=== PATIENT | male | born 1980 | race American Indian/Alaskan Native ===

== ENCOUNTER 2020-03-02 07:09 | Outpatient (REF) | payer OTHER, SELFPAY ==
[2020-03-02 08:29] LABS: Alanine Aminotransferase 35 U/L (0-40); Albumin Level 4.1 g/dL (3.5-5.0); Alkaline Phosphatase 86 U/L (39-117); Anion Gap 12 (12-20); Aspartate Amino Transferase 43 U/L (5-37); Bilirubin Total 0.4 mg/dL (0.0-1.0); Blood Urea Nitrogen 10 mg/dL (9-16); Calcium 8.4 mg/dL (8.4-10.2); Carbon Dioxide 32 mmol/L (22-29); Chloride 100 mmol/L (96-108); Cholesterol 222 mg/dL; Estimated Glomerular Filt Rate > 60; Glucose Fasting 108 mg/dL (60-99); HDL Cholesterol 44 mg/dL; LDL Cholesterol Calculated 147 mg/dl; Potassium 3.9 mmol/l (3.3-5.1); Sodium 140 mmol/L (135-145); Total Protein 7.4 g/dL (6.5-8.0); Triglycerides 157 mg/dL
== END 2020-03-02 07:10 | disposition home or self-care (01) ==
LOC: HO.LAB 07:09
PROVIDERS: Visit Provider Internal Medicine
DX: I10 Essential (primary) hypertension (principal)
CPT/HCPCS: 80053; 80061

== ENCOUNTER 2021-03-12 07:36 | Emergency (ER) | payer OTHER, SELFPAY ==
[2021-03-12 09:16] VITALS: BP 162/107; PULSE 92; RESP 16; TEMP 36.7; O2SAT 96; BMI 50.0
--- NOTE | 2021-03-12 09:30 | ED_ITS ---
HPI - Eye Problem General Chief complaint: Upper Respiratory Symptoms Stated complaint: fever, eye pain Time Seen by Provider: 03/12/21 09:02 Source: patient Mode of arrival: ambulatory Limitations: no limitations History of Present Illness HPI Narrative: 40-year-old male with history of morbid obesity, HTN, HLD who presents to the ER with red, burning and crusting eyes that started yesterday. He reports body aches and fever 2 days ago that resolved on its own. He also reports some increased nasal congestion and generally feeling unwell. His main complaint today is his burning eyes. When he woke up this morning they were crusted shut. He reports both eyes are red and have increased watering. He had some blurry vision yesterday but that has self resolved. He wears glasses and not contacts with no vision changes today. He denies any foreign body sensation. He denies any seasonal allergy history. He is fully vaccinated against COVID-19. chief complaint: eye pain and eye redness Onset (ago): day(s) (1) Onset description: gradual Duration: constant Location: both eyes Eye Symptoms: burning, redness and discharge Place: home Mechanism: none Severity: moderate If Pain, Quality: burning Context: recent URI Associated symptoms: rhinorrhea and fever Treatments Prior to Arrival: none Related Data Patient tetanus UTD: Yes Home Medications Medication Instructions Recorded Confirmed amlodipine 10 mg tablet 10 mg PO DAILY 03/19/20 06/06/20 Previous Rx's Medication Instructions Recorded lisinopril 20 mg tablet 20 mg PO DAILY 90 Days #90 tab 03/19/20 atorvastatin 20 mg tablet 20 mg PO DAILY #30 tab 07/31/20 polymyxin B sulfate 10,000 1 drp OPHTHALMIC (EYE) Q3H 7 Days 03/12/21 unit-trimethoprim 1 mg/mL eye #10 ml drops (Polytrim) Allergies Allergy/AdvReac Type Severity Reaction Status Date / Time lisinopril AdvReac Intermediate migraines Verified 06/06/20 11:16 Review of Systems Review of Systems: Constitutional: + Fever, No Chills ENT/Mouth: No sore throat, No Rhinorrhea, No Swallowing Difficulty, +Nasal congestion Eyes: + Eye Pain, No Swelling, + Redness, +Discharge Cardiovascular: No Chest Pain, No SOB, No Orthopnea, No Edema Respiratory: No Cough, No Sputum, No Wheezing, No dyspnea Gastrointestinal: No Nausea, No Vomiting, No Diarrhea, No abdominal Pain Musculoskeletal: No joint pain, + Myalgias Skin: No Skin Lesions, No rash Neuro: No Weakness, No Numbness, No Dizziness, + Headache Heme/Lymph: No Bruising, No Lymphadenopathy PMFSH Past Medical History Medical History Essential hypertension Obesity Pure hypercholesterolemia Surgical History History of cholecystectomy History of ear surgery Family History Family History (Updated 03/14/20 @ 07:38 by Roula Trivedi [facility]) Father Hypertension Diabetes Mother Diabetes Hypertension Social History Social History Advance Directives: No Physical Exam Vital Signs: Vital Signs: Last Vital Signs Temp 98.0 F 03/12/21 09:16 Pulse 92 03/12/21 09:16 Resp 16 03/12/21 09:16 BP 162/107 H 03/12/21 09:16 Pulse Ox 96 03/12/21 09:16 Body Mass Index 50.0 Appearance: Alert. Oriented X3. No acute distress. Eyes: Pupils equal, round and reactive to light. Bilateral moderate scleral and conjuctival injection, no discharge. No icterus. EOMI. ENT: Pharynx normal. TMs normal bilaterally. Neck: Normal inspection. Neck supple. No LAD. CVS: Normal heart rate and rhythm. Pulses normal. Respiratory: No respiratory distress. Breath sounds normal. Abdomen: Soft and nontender. +BS x4 Skin: Skin warm and dry. Normal skin color. Normal skin turgor. No rashes. Extremities: No lower extremity edema. Neuro: Oriented X 3. Grossly normal, nonfocal. Course Course Course Narrative: 40 y/o male presenting to the ER with bilateral red and burning eyes in the setting of fever, body aches and nasal congestion. Most likely viral however given discharge and crusting will treat for possible bacterial with topical antibiotics. Will also get COVID swab. Reevaluation(s) Reevaluation #1: COVID-19 is found to be positive. He is oxygenating well with clear lungs. No respiratory distress. Results and management were discussed with the patient. At this time is stable for discharge home with supportive care and plan to follow-up with his outpatient doctor as needed. MDM - Eye Problem Lab Data Labs: Lab Results 03/12/21 Range/Units 09:38 COVID-19 (VJ) Positive A (Negative) COVID-19 Clin Com See Note Critical Care Time Critical Care Time Critical Care Time: No Discharge Plan Discharge Clinical Impression: COVID-19 Conjunctivitis Qualifiers: Conjunctivitis type: acute Acute conjunctivitis type: bacterial Laterality: bilateral Qualified Code(s): H10.33 - Unspecified acute conjunctivitis, bilateral Patient Disposition: Home, Self-Care Instructions: Covid-19 Viral Syndrome and Novel Coronavirus (ED) Hey/Ath, Conjunctivitis (ED) Additional Instructions: You were found to be COVID-19 POSITIVE today. Your lung are clear and oxygen levels were normal. Rest. Drink plenty of fluids. Do not go out in public for the next 10 days. Take over the counter cold/flu medications as needed for your symptoms. Take Tylenol and/or Motrin as needed for fevers and body aches. Follow up with your doctor this week. If you shortness of breath worsens , if you develop difficulty breathing or any other concerning symptom come back to the ER for further evaluation. Use the prescribed antibiotic drops as prescribed for 1 week. Do not let the bottle dropper touch the surface of your eye. Prescriptions: New polymyxin B sulf-trimethoprim [Polytrim] 10,000 unit- 1 mg/mL drops 1 drp ophthalmic (eye) Q3H 7 Days Qty: 10 RF: 0 No Action atorvastatin 20 mg tablet 20 mg PO DAILY Qty: 30 RF: 6 amlodipine 10 mg tablet 10 mg PO DAILY RF: 0 lisinopril 20 mg tablet 20 mg PO DAILY 90 Days Qty: 90 RF: 3 Stand Alone Forms: Work/School Release Print Language: Slovak
[2021-03-12 09:52] LABS: COVID-19 Test Positive (Negative); IDNOW Serial# 9DD0AD1C
== END 2021-03-12 10:21 | disposition home or self-care (01) ==
PROVIDERS: Physician Assistant; Emergency Provider Emergency Medicine Emergency Medical Services; PCP Internal Medicine
DX: U07.1 COVID-19 (principal); H10.33 Unspecified acute conjunctivitis, bilateral; R50.9 Fever, unspecified; Z79.899 Other long term (current) drug therapy
CPT/HCPCS: 36415; 87635; 99283

== ENCOUNTER 2021-05-02 13:59 | Outpatient (REF) | payer OTHER, SELFPAY ==
--- NOTE | ~2021-05-02 | XR_ITS ---
EXAMINATION: XR ABDOMEN KUB CLINICAL INDICATION: Gross hematuria COMPARISON: Ultrasound renal from 05/02/2021 TECHNIQUE: AP view of the abdomen. FINDINGS: Overlying bowel gas slightly limits evaluation. No radiopaque calcifications overlying the bilateral renal shadows or ureteral paths. Nonobstructive bowel gas pattern with mild fecal loading of the colon. Cholecystectomy clips in the right upper quadrant of the abdomen. Visualized portion of the lower chest are unremarkable. Osseous structures are intact. Soft tissues are unremarkable. XR/XR KUB IMPRESSION: 1. Overlying bowel gas slightly limits evaluation. 2. No radiopaque calcifications overlying the bilateral renal shadows or ureteral paths. 3. Nonobstructive bowel gas pattern with mild fecal loading of the colon.
--- NOTE | ~2021-05-02 | US_ITS ---
EXAMINATION: US RETROPERITONEAL LIMITED (RENAL ONLY) CLINICAL INFORMATION: Gross hematuria. COMPARISON: KUB 05/02/2021. Ultrasound abdomen limited 10/01/2017. Renal ultrasound 06/12/2011. TECHNIQUE: Real-time imaging of the kidneys. FINDINGS: RIGHT KIDNEY: 12.0 x 5.3 x 6.0 cm (SAG x AP x TRV). The kidney is normal in size, contour, and echogenicity. Renal cortical thickness is normal. No calculi or focal parenchymal lesions. No hydronephrosis. LEFT KIDNEY: 11.7 x 6.1 x 5.9 cm (SAG x AP x TRV). The kidney is normal in size, contour, and echogenicity. Renal cortical thickness is normal. No calculi or focal parenchymal lesions. No hydronephrosis. US/US renal BI IMPRESSION: No ultrasound evidence of kidney stone or renal mass, no ultrasound explanation for patient's hematuria..
== END 2021-05-02 14:00 | disposition home or self-care (01) ==
LOC: HO.US 13:59
PROVIDERS: Visit Provider Internal Medicine
DX: R31.0 Gross hematuria (principal)
CPT/HCPCS: 74018; 76775

== ENCOUNTER 2021-05-20 07:44 | Outpatient (REF) | payer OTHER, SELFPAY ==
[2021-05-20 08:11] LABS: MANUAL DIFF FLAG NO
[2021-05-20 08:31] LABS: Appearance Urine CLEAR; Color Urine YELLOW; Glucose Urine UA NEG (NEG); Leukocyte Esterase Urine NEG (NEG); Nitrite Urine NEG (NEG); Specific Gravity - Urine >= 1.030 (1.005-1.025); UACC Culture Trigger NO; Urine Blood NEG (NEG); Urine Ketones NEG (NEG); Urine Protein 3+ MG/DL (NEG-TRACE)
[2021-05-20 08:33] LABS: Basophils Percent Auto 0.5 % (0-2); Eosinophils Absolute Auto 0.1 X10*3/uL (0.0-0.4); Eosinophils Percent Auto 0.8 % (0-4); Hematocrit 53.6 % (42.0-52.0); Hemoglobin 16.5 g/dl (14.0-18.0); Imm Gran Abs Auto 0.02 X10*3/uL (0.00-0.03); Imm Gran Pct Auto 0.3 % (0.0-0.4); Lymphocytes Absolute Auto 1.4 X10*3/uL (1.2-4.9); Lymphocytes Percent Auto 23.9 % (20-40); Mean Corpuscular HGB Conc 30.8 g/dl (31.0-36.0); Mean Corpuscular Hemoglobin 25.3 pg (27.0-33.0); Mean Corpuscular Volume 82.3 fL (80.0-98.0); Mean Platelet Volume 10.4 fL (9.4-12.4); Monocytes Absolute Auto 0.6 X10*3/uL (0.1-1.2); Monocytes Percent Auto 9.6 % (2-11); Neutrophils Absolute Auto 3.9 x10*3/uL (2.0-8.3); Neutrophils Percent Auto 64.9 % (45-73); Platelet Count 231 X10*3/uL (160-400); Red Blood Count 6.51 X10*6/uL (4.60-5.80); Red Cell Distribution Width 16.9 % (11.0-16.0)
[2021-05-20 08:53] LABS: Bacteria Urine TRACE /LPF; Mucus Urine TRACE /LPF; Squamous Epithelial Cell Urine 1+ /LPF
[2021-05-20 09:00] LABS: Alanine Aminotransferase 20 U/L (0-40); Albumin Level 3.8 g/dL (3.5-5.0); Alkaline Phosphatase 76 U/L (39-117); Anion Gap 10 (12-20); Aspartate Amino Transferase 31 U/L (5-37); Bilirubin Total 0.5 mg/dL (0.0-1.0); Blood Urea Nitrogen 15 mg/dL (9-16); Calcium 9.4 mg/dL (8.4-10.2); Carbon Dioxide 31 mmol/L (22-29); Chloride 102 mmol/L (96-108); Cholesterol 285 mg/dL; Estimated Glomerular Filt Rate > 60; Glucose Fasting 118 mg/dL (60-99); HDL Cholesterol 42 mg/dL; LDL Cholesterol Calculated 206 mg/dl; Potassium 4.2 mmol/L (3.3-5.1); Sodium 139 mmol/L (135-145); Total Protein 7.3 g/dL (6.5-8.0); Triglycerides 186 mg/dL
[2021-05-20 09:23] LABS: Thyroid Stimulating Hormone 2.17 uIU/mL (0.32-4.0)
[2021-05-24 15:16] LABS: Vitamin D 25-OH, D2 <4 ng/mL; Vitamin D 25-OH, D3 10 ng/mL; Vitamin D 25-OH, Total 10 ng/mL (30-100)
== END 2021-05-20 07:45 | disposition home or self-care (01) ==
LOC: HO.LAB 07:44
PROVIDERS: PCP Internal Medicine; Visit Provider Internal Medicine
DX: E66.01 Morbid (severe) obesity due to excess calories (principal); Z68.43 Body mass index [BMI] 50.0-59.9, adult; E55.9 Vitamin D deficiency, unspecified; E78.5 Hyperlipidemia, unspecified; I10 Essential (primary) hypertension
CPT/HCPCS: 36415; 80053; 80061; 81001; 82306; 84443; 85025

== ENCOUNTER 2021-10-23 11:41 | Emergency (ER) | payer OTHER, SELFPAY ==
--- NOTE | ~2021-10-23 | XR_ITS ---
EXAMINATION: XR CHEST CLINICAL INFORMATION: Bilateral leg swelling and right calf tenderness. COMPARISON: 03/09/2019 chest radiograph. TECHNIQUE: 2 views of the chest were obtained. FINDINGS: No significant abnormality is noted involving the heart, lungs, mediastinum, bony thorax or soft tissues. XR/XR chest 2V IMPRESSION: No acute cardiopulmonary process.
--- NOTE | ~2021-10-23 | US_ITS ---
EXAMINATION: US VENOUS ULTRASOUND WITH DOPPLER LOWER EXTREMITY, BILATERAL CLINICAL INFORMATION: Bilateral leg swelling with right calf tenderness COMPARISON: Right lower extremity DVT study 02/23/2013 TECHNIQUE: Ultrasound of the deep veins is performed from the hip to the calf with compression sonography and color and pulse Doppler assessment. Spectral analysis with color-flow imaging is performed. FINDINGS: RIGHT: There is normal venous compression and respiratory variation and augmented flow. The visualized common femoral vein, superficial femoral vein, profunda femoral vein, popliteal vein, and the trifurcation region shows no evidence of deep venous thrombosis. There is no significant popliteal fossa cyst. An enlarged right groin lymph node is seen measuring 4.1 x 1.7 x 3.3 cm with a large fatty zenaida. LEFT: There is normal venous compression and respiratory variation and augmented flow. The visualized common femoral vein, superficial femoral vein, profunda femoral vein, popliteal vein, and the trifurcation region shows no evidence of deep venous thrombosis. There is no significant popliteal fossa cyst. A morphologically normal-appearing 4.0 x 1.7 x 3.1 cm groin lymph node is present. If the patient's symptoms persist, followup ultrasound in 5 days 7 days might be of value to exclude proximal propagation from a non-visualized calf vein. US/US venous duplex LE BI IMPRESSION: No DVT demonstrated in either lower extremity. Bilateral prominent inguinal lymph nodes are seen. Similar findings were noted in 2012.
[2021-10-23 12:16] VITALS: BP 146/100; PULSE 103; RESP 20; TEMP 35.9; O2SAT 95; BMI 51.6
[2021-10-23 14:48] LABS: MANUAL DIFF FLAG NO
[2021-10-23 14:51] LABS: Basophils Percent Auto 0.4 % (0-2); Eosinophils Absolute Auto 0.1 X10*3/uL (0.0-0.4); Eosinophils Percent Auto 1.7 % (0-4); Hematocrit 50.3 % (42.0-52.0); Hemoglobin 15.8 g/dl (14.0-18.0); Imm Gran Abs Auto 0.03 X10*3/uL (0.00-0.03); Imm Gran Pct Auto 0.4 % (0.0-0.4); Lymphocytes Absolute Auto 1.6 X10*3/uL (1.2-4.9); Lymphocytes Percent Auto 20.8 % (20-40); Mean Corpuscular HGB Conc 31.4 g/dl (31.0-36.0); Mean Corpuscular Hemoglobin 25.8 pg (27.0-33.0); Mean Corpuscular Volume 82.1 fL (80.0-98.0); Mean Platelet Volume 10.2 fL (9.4-12.4); Monocytes Absolute Auto 0.7 X10*3/uL (0.1-1.2); Monocytes Percent Auto 8.4 % (2-11); Neutrophils Absolute Auto 5.3 x10*3/uL (2.0-8.3); Neutrophils Percent Auto 68.3 % (45-73); Platelet Count 213 X10*3/uL (160-400); Red Blood Count 6.13 X10*6/uL (4.60-5.80); Red Cell Distribution Width 14.6 % (11.0-16.0); White Blood Count 7.8 X10*3/uL (4.8-10.8)
[2021-10-23 15:17] LABS: Lactic Acid 1.4 mmol/L (0.5-2.0)
[2021-10-23 15:18] LABS: Alanine Aminotransferase 50 U/L (0-40); Albumin Level 4.2 g/dL (3.5-5.0); Alkaline Phosphatase 93 U/L (39-117); Anion Gap 14 (12-20); Aspartate Amino Transferase 58 U/L (5-37); Bilirubin Total 0.5 mg/dL (0.0-1.0); Blood Urea Nitrogen 13 mg/dL (9-16); Calcium 9.3 mg/dL (8.4-10.2); Carbon Dioxide 30 mmol/L (22-29); Chloride 99 mmol/L (96-108); Creatinine Clr Calc Pharmacy 157.4; Estimated Glomerular Filt Rate > 60; Glucose Random 146 mg/dL (60-115); Potassium 4.1 mmol/L (3.3-5.1); Sodium 139 mmol/L (135-145); Total Protein 7.8 g/dL (6.5-8.0)
--- NOTE | 2021-10-23 15:53 | ED.SKABFB ---
HPI - Skin/Abscess/Foreign Bdy General Chief complaint: Extremity Problem Stated complaint: cellulitis on both legs Time Seen by Provider: 10/23/21 15:51 Related Data Previous Rx's Medication Instructions Recorded hydralazine 25 mg tablet 25 mg PO TID 90 days #270 tabs 04/03/21 lisinopril 40 mg tablet 40 mg PO DAILY 90 days #90 tabs 04/03/21 amlodipine 10 mg tablet 10 mg PO DAILY 90 days #90 tabs 07/02/21 atorvastatin 40 mg tablet 40 mg PO BEDTIME 90 days #90 tabs 07/02/21 cholecalciferol (vitamin D3) 50 50 mcg PO DAILY 90 days #90 caps 08/13/21 mcg (2,000 unit) capsule Allergies Allergy/AdvReac Type Severity Reaction Status Date / Time No Known Allergies Allergy Verified 08/13/21 17:29 [facility] Past Medical History Medical History (Updated 08/13/21 @ 17:31 by Makayla Cochran MD) Essential hypertension Gross hematuria Hypovitaminosis D Left knee pain Obesity Physical exam Pure hypercholesterolemia Right knee pain Super-super obese Surgical History History of cholecystectomy History of ear surgery Family History Family History Father Hypertension Diabetes Mother Diabetes Hypertension Kidney failure Social History Social History Housing: Apartment Alcohol intake: never Patient Tobacco Use Status: Never used Tobacco e-Cigarette/Vaping Use: Never Used Second Hand Smoke Exposure: No Advance Directives: Yes Advance Directives Information Provided: Yes Advance Directives on File: No service: No Current occupational status: employed Current occupational exposures/hazards: No Cognitive needs: No Hearing needs: No Vision needs: Yes Physical Exam Vital Signs: Vital Signs: Last Vital Signs Temp 96.6 F L 10/23/21 12:16 Pulse 103 H 10/23/21 12:16 Resp 20 10/23/21 12:16 BP 146/100 H 10/23/21 12:16 Pulse Ox 95 10/23/21 12:16 O2 Del Method 10/23/21 12:16 BMI result Body Mass Index 51.6 Course Course Course Narrative: Patient is a 41-year-old male with a past medical history of hypertension, hematuria, obesity, hypercholesterolemia presenting to the emergency department for evaluation of _. CBC is unremarkable, no leukocytosis. Chemistries are overall unremarkable. Lactic acid 1.4. MDM - Skin/Abscess/Foreign Bdy Lab Data Result diagrams: 10/23/21 14:42 10/23/21 14:42 Labs: Lab Results 10/23/21 10/23/21 10/23/21 Range/Units 14:42 14:42 14:42 WBC 7.8 (4.8-10.8) X10*3/uL RBC 6.13 H (4.60-5.80) X10*6/uL Hgb 15.8 (14.0-18.0) g/dl Hct 50.3 (42.0-52.0) % MCV 82.1 (80.0-98.0) fL MCH 25.8 L (27.0-33.0) pg MCHC 31.4 (31.0-36.0) g/dl RDW 14.6 (11.0-16.0) % Plt Count 213 (160-400) X10*3/uL MPV 10.2 (9.4-12.4) fL Immature Gran % (Auto) 0.4 (0.0-0.4) % Neut % (Auto) 68.3 (45-73) % Lymph % (Auto) 20.8 (20-40) % Gonzales % (Auto) 8.4 (2-11) % Eos % (Auto) 1.7 (0-4) % Baso % (Auto) 0.4 (0-2) % Lymph # (Auto) 1.6 (1.2-4.9) X10*3/uL Gonzales # (Auto) 0.7 (0.1-1.2) X10*3/uL Eos # (Auto) 0.1 (0.0-0.4) X10*3/uL Baso # (Auto) 0.0 (0.0-0.2) X10*3/uL Abs Immat Gran (auto) 0.03 (0.00-0.03) X10*3/uL Absolute Neuts (auto) 5.3 (2.0-8.3) x10*3/uL Absolute Nucleated RBC 0.000 (0.0-0.012) X10*3/uL Nucleated RBC % (auto) 0.0 (0.0-0.2) /100WBC Sodium 139 (135-145) mmol/L Potassium 4.1 (3.3-5.1) mmol/L Chloride 99 (96-108) mmol/L Carbon Dioxide 30 H (22-29) mmol/L Anion Gap 14 (12-20) BUN 13 (9-16) mg/dL Creatinine 0.85 (0.5-1.4) mg/dL Estim Creat Clear Calc 157.4 Estimated GFR > 60 Random Glucose 146 H (60-115) mg/dL Lactic Acid 1.4 (0.5-2.0) mmol/L Calcium 9.3 (8.4-10.2) mg/dL Total Bilirubin 0.5 (0.0-1.0) mg/dL AST 58 H (5-37) U/L ALT 50 H (0-40) U/L Alkaline Phosphatase 93 D (39-117) U/L Total Protein 7.8 (6.5-8.0) g/dL Albumin 4.2 (3.5-5.0) g/dL Discharge Plan Discharge Prescriptions: No Action lisinopril 40 mg tablet 40 mg PO DAILY 90 Days Qty: 90 1RF hydralazine 25 mg tablet 25 mg PO TID 90 Days Qty: 270 1RF amlodipine 10 mg tablet 10 mg PO DAILY 90 Days Qty: 90 1RF atorvastatin 40 mg tablet 40 mg PO BEDTIME 90 Days Qty: 90 1RF cholecalciferol (vitamin D3) 50 mcg (2,000 unit) capsule 50 mcg PO DAILY 90 Days Qty: 90 3RF
--- NOTE | 2021-10-23 16:11 | ED.EXTPRO ---
HPI - Extremity Problem General Chief complaint: Extremity Problem Stated complaint: cellulitis on both legs Time Seen by Provider: 10/23/21 15:51 Source: patient Mode of arrival: ambulatory Limitations: language barrier (Maori speaking ) History of Present Illness HPI Narrative: 41-year-old male with a past medical history of morbid obesity, hypertension, hyperlipidemia who is presenting to the ED with complaints of bilateral lower extremity leg swelling with right-sided calf tenderness and redness to bilateral lower extremities. He reports he has never had this in the past. He denies any dizziness, headaches, chest pain or shortness of breath, dyspnea on exertion, orthopnea, palpitations, paresthesias, recent travel or sick contacts, any estrogen usage, history of surgery or cancer, history of hypercoagulation disorder DVT or PE, recent falls or trauma history of gout, recent illness or history of PVD disease. MD Complaint: extremity swelling Onset (ago): day(s) (3) Pain Consistency: constant Location: left, right and lower extremity Radiation: none Relieving factors: nothing Exacerbating factors: weight bearing, walking and palpation Associated symptoms: denies other symptoms Related Data Previous Rx's Medication Instructions Recorded hydralazine 25 mg tablet 25 mg PO TID 90 days #270 tabs 04/03/21 lisinopril 40 mg tablet 40 mg PO DAILY 90 days #90 tabs 04/03/21 amlodipine 10 mg tablet 10 mg PO DAILY 90 days #90 tabs 07/02/21 atorvastatin 40 mg tablet 40 mg PO BEDTIME 90 days #90 tabs 07/02/21 cholecalciferol (vitamin D3) 50 50 mcg PO DAILY 90 days #90 caps 08/13/21 mcg (2,000 unit) capsule cephalexin 500 mg capsule 500 mg PO Q6H 10 days #40 caps 10/23/21 doxycycline monohydrate 100 mg 100 mg PO BID 10 days #20 caps 10/23/21 capsule furosemide 20 mg tablet (Lasix) 20 mg PO QAM pedal edema 7 days #7 10/23/21 tabs Allergies Allergy/AdvReac Type Severity Reaction Status Date / Time No Known Allergies Allergy Verified 08/13/21 17:29 Review of Systems Review of Systems: Constitutional : No Weight loss, No Fever, No Chills, No Night Sweats, No Fatigue, No Malaise ENT/Mouth : No Hearing loss, No Ear Pain, No Nasal Congestion, No Sinus Pain, No Hoarseness, No sore throat, No Rhinorrhea, No Swallowing Difficulty Eyes: No Eye Pain, No Swelling, No Redness, No Foreign Body, No Discharge, No Vision Changes Cardiovascular : + b/l lower extremity swelling, No Chest Pain, No SOB, No Dyspnea on Exertion, No Orthopnea, No Palpitations Respiratory : No Cough, No Sputum, No Wheezing, No Smoke Exposure, No Dyspnea Gastrointestinal : No Nausea, No Vomiting, No Diarrhea, No Constipation, No abdominal Pain, No Hematochezia, No Melena Genitourinary : no irregular bleeding, No Dysuria, No Urinary Frequency, No Hematuria, No Urinary Incontinence, No Urgency, No Flank Pain, No Urinary Flow Changes, No Hesitancy Musculoskeletal : No joint pain, No Myalgias, No Joint Swelling Skin : No Skin Lesions, No rash Neuro : No Weakness, No Numbness, No Paresthesias, No Loss of Consciousness, No Dizziness, No Headache Psych : No Anxiety/Panic, No Depression, No SI/HI/AH/VH, No Social Issues, Heme/Lymph: No Bruising, No Bleeding,No Lymphadenopathy Endocrine : No Polyuria, No Polydipsia, No Temperature Intolerance Yes all other systems are reviewed and are negative PENDING SALE TO [facility] Past Medical History Attestation statement: The following information was validated with the patient. Source: old records reviewed and nursing notes reviewed Medical History Essential hypertension Gross hematuria Hypovitaminosis D Left knee pain Obesity Physical exam Pure hypercholesterolemia Right knee pain Super-super obese Surgical History History of cholecystectomy History of ear surgery Family History Family History Father Hypertension Diabetes Mother Diabetes Hypertension Kidney failure Social History Social History Housing: Apartment Alcohol intake: never Patient Tobacco Use Status: Never used Tobacco e-Cigarette/Vaping Use: Never Used Second Hand Smoke Exposure: No Advance Directives: Yes Advance Directives Information Provided: Yes Advance Directives on File: No service: No Current occupational status: employed Current occupational exposures/hazards: No Cognitive needs: No Hearing needs: No Vision needs: Yes Physical Exam Vital Signs: Vital Signs: Last Vital Signs Temp 96.7 F L 10/23/21 16:55 Pulse 84 10/23/21 16:55 Resp 16 10/23/21 16:55 BP 140/87 H 10/23/21 16:55 Pulse Ox 95 10/23/21 16:55 O2 Del Method 10/23/21 16:55 BMI result Body Mass Index 51.6 vital signs have been reviewed as normal and appeared to be correct. Blood pressure 146/100. Heart rate 103. Respiration rate normal. Temperature 96.6. Oxygen saturation normal. Appearance: Alert. Oriented X3. No acute distress. Head: Normal external exam. Normocephalic. Atraumatic. Eyes: PERRLA. EOMI. Conjunctiva and sclera normal. Eyelids normal. ENT: Pharynx normal. Uvula midline. Moist mucous membranes. Normal voice. No trismus noted. No drooling noted. No muffled voice noted. Neck: Normal inspection. Neck supple. FROM. No adenopathy. Thyroid Normal. No meningeal signs. CVS: Normal heart rate and rhythm. Heart sound normal. Pulses normal throughout. No murmurs/rales/gallops. Respiratory: No respiratory distress. Painless inspiration. Breath sounds normal. No wheezes/rales/rhonchi noted. Chest nontender. No accessory muscle usage noted or decreased air movement noted. Abdomen: Soft and nontender. Bowel sounds normal in all 4 quadrants. No distention noted. No organomegaly noted. No visible injury noted. Back: Full range of motion noted. Nontender. Skin: Skin warm and dry. Normal skin color. Normal skin turgor. No rashes/lesions/lacerations noted. Extremities: Patient with bilateral lower extremity swelling with +2 pitting edema and calf tenderness to the right side. No calf tenderness noted to the left side. Mild erythema noted to bilateral lower extremity. No streaking/induration/fluctuance noted. Extremities exhibit normal range of motion and nontender. Neuro: Oriented X 3. No motor deficit. No sensory deficit. Reflexes normal. Normal steady gait. No focal neuro deficits noted. CN's II-XII intact bilaterally? Vascular: + radial pulses/+ 2 distal pedal pulses/+2 dorsalis pedis b/l. Normal cap refill. No cyanosis noted to upper extremity nails and lower extremity toes nails. Course Course Course Narrative: 16:15pm - 41-year-old male with a past medical history of morbid obesity, HTN and HLD who is presenting to the ED with complaints of bilateral lower extremity leg swelling with right-sided calf tenderness and redness to bilateral lower extremities. Labs were obtained while the patient was in triage patient mild baseline anemia. Carbon dioxide 30 which is similar compared to prior. Random glucose 146. AST/ALT 58/50. Otherwise all other labs are within normal limits. Plan: Will add a chest x-ray, BNP although patient denies any shortness of breath although he does have bilateral lower extremity swelling with pitting edema, will also order venous duplex ultrasound of bilateral lower extremity for possible DVT and re-evaluate. Reevaluation(s) Reevaluation #1: - bilateral lower extremity negative for DVT. Chest x-ray within normal limits no evidence venous duplex ultrasound of bilateral lower extremity negative for DVT. Patient most likely pedal edema versus cellulitis. Will DC home with a short course of Lasix for a week along with antibiotics and instructions to return if any new or worsening symptoms follow up with primary care provider. Patient understands agrees with this plan. Time: 20:03 MDM - Extremity (Nontraumatic) Medical Records Attestation: I reviewed the patient's medical records. Lab Data Attestation: I reviewed the patient's lab results. Result diagrams: 10/23/21 14:42 10/23/21 14:42 Labs: Lab Results 10/23/21 10/23/21 10/23/21 Range/Units 14:42 14:42 14:42 WBC 7.8 (4.8-10.8) X10*3/uL RBC 6.13 H (4.60-5.80) X10*6/uL Hgb 15.8 (14.0-18.0) g/dl Hct 50.3 (42.0-52.0) % MCV 82.1 (80.0-98.0) fL MCH 25.8 L (27.0-33.0) pg MCHC 31.4 (31.0-36.0) g/dl RDW 14.6 (11.0-16.0) % Plt Count 213 (160-400) X10*3/uL MPV 10.2 (9.4-12.4) fL Immature Gran % (Auto) 0.4 (0.0-0.4) % Neut % (Auto) 68.3 (45-73) % Lymph % (Auto) 20.8 (20-40) % [place] % (Auto) 8.4 (2-11) % Eos % (Auto) 1.7 (0-4) % Baso % (Auto) 0.4 (0-2) % Lymph # (Auto) 1.6 (1.2-4.9) X10*3/uL [place] # (Auto) 0.7 (0.1-1.2) X10*3/uL Eos # (Auto) 0.1 (0.0-0.4) X10*3/uL Baso # (Auto) 0.0 (0.0-0.2) X10*3/uL Abs Immat Gran (auto) 0.03 (0.00-0.03) X10*3/uL Absolute Neuts (auto) 5.3 (2.0-8.3) x10*3/uL Absolute Nucleated RBC 0.000 (0.0-0.012) X10*3/uL Nucleated RBC % (auto) 0.0 (0.0-0.2) /100WBC Sodium 139 (135-145) mmol/L Potassium 4.1 (3.3-5.1) mmol/L Chloride 99 (96-108) mmol/L Carbon Dioxide 30 H (22-29) mmol/L Anion Gap 14 (12-20) BUN 13 (9-16) mg/dL Creatinine 0.85 (0.5-1.4) mg/dL Estim Creat Clear Calc 157.4 Estimated GFR > 60 Random Glucose 146 H (60-115) mg/dL Lactic Acid 1.4 (0.5-2.0) mmol/L Calcium 9.3 (8.4-10.2) mg/dL Total Bilirubin 0.5 (0.0-1.0) mg/dL AST 58 H (5-37) U/L ALT 50 H (0-40) U/L Alkaline Phosphatase 93 D (39-117) U/L B-Natriuretic Peptide (<100) pg/mL Total Protein 7.8 (6.5-8.0) g/dL Albumin 4.2 (3.5-5.0) g/dL 10/23/21 Range/Units 14:46 WBC (4.8-10.8) X10*3/uL RBC (4.60-5.80) X10*6/uL Hgb (14.0-18.0) g/dl Hct (42.0-52.0) % MCV (80.0-98.0) fL MCH (27.0-33.0) pg MCHC (31.0-36.0) g/dl RDW (11.0-16.0) % Plt Count (160-400) X10*3/uL MPV (9.4-12.4) fL Immature Gran % (Auto) (0.0-0.4) % Neut % (Auto) (45-73) % Lymph % (Auto) (20-40) % [place] % (Auto) (2-11) % Eos % (Auto) (0-4) % Baso % (Auto) (0-2) % Lymph # (Auto) (1.2-4.9) X10*3/uL [place] # (Auto) (0.1-1.2) X10*3/uL Eos # (Auto) (0.0-0.4) X10*3/uL Baso # (Auto) (0.0-0.2) X10*3/uL Abs Immat Gran (auto) (0.00-0.03) X10*3/uL Absolute Neuts (auto) (2.0-8.3) x10*3/uL Absolute Nucleated RBC (0.0-0.012) X10*3/uL Nucleated RBC % (auto) (0.0-0.2) /100WBC Sodium (135-145) mmol/L Potassium (3.3-5.1) mmol/L Chloride (96-108) mmol/L Carbon Dioxide (22-29) mmol/L Anion Gap (12-20) BUN (9-16) mg/dL Creatinine (0.5-1.4) mg/dL Estim Creat Clear Calc Estimated GFR Random Glucose (60-115) mg/dL Lactic Acid (0.5-2.0) mmol/L Calcium (8.4-10.2) mg/dL Total Bilirubin (0.0-1.0) mg/dL AST (5-37) U/L ALT (0-40) U/L Alkaline Phosphatase (39-117) U/L B-Natriuretic Peptide < 10 (<100) pg/mL Total Protein (6.5-8.0) g/dL Albumin (3.5-5.0) g/dL Imaging Data Chest x-ray: Attestation: I personally reviewed and interpreted this imaging study as follows: Radiologist's impression: FINDINGS: No significant abnormality is noted involving the heart, lungs, mediastinum, bony thorax or soft tissues. XR/XR chest 2V IMPRESSION: No acute cardiopulmonary process. Venous duplex ultrasound of bilateral lower extremities: Attestation: I personally reviewed and interpreted this imaging study as follows: Radiologist's impression: FINDINGS: RIGHT: There is normal venous compression and respiratory variation and augmented flow. The visualized common femoral vein, superficial femoral vein, profunda femoral vein, popliteal vein, and the trifurcation region shows no evidence of deep venous thrombosis. ? There is no significant popliteal fossa cyst.? An enlarged right groin lymph node is seen measuring 4.1 x 1.7 x 3.3 cm with a large fatty zenaida. LEFT: There is normal venous compression and respiratory variation and augmented flow. The visualized common femoral vein, superficial femoral vein, profunda femoral vein, popliteal vein, and the trifurcation region shows no evidence of deep venous thrombosis. ? There is no significant popliteal fossa cyst. A morphologically normal-appearing 4.0 x 1.7 x 3.1 cm groin lymph node is present. If the patient's symptoms persist, followup ultrasound in 5 days 7 days might be of value to exclude proximal propagation from a non-visualized calf vein. US/US venous duplex LE BI IMPRESSION: No DVT demonstrated in either lower extremity. Bilateral prominent inguinal lymph nodes are seen. Similar findings were noted in 2013. Discharge Plan Discharge Clinical Impression: Cellulitis, Pedal edema Patient Disposition: Home, Self-Care Instructions: Cellulitis (ED), Leg Edema (ED) Prescriptions: New cephalexin 500 mg capsule 500 mg PO Q6H 10 Days Qty: 40 0RF doxycycline monohydrate 100 mg capsule 100 mg PO BID 10 Days Qty: 20 0RF furosemide [Lasix] 20 mg tablet 20 mg PO QAM 7 Days Qty: 7 0RF No Action lisinopril 40 mg tablet 40 mg PO DAILY 90 Days Qty: 90 1RF hydralazine 25 mg tablet 25 mg PO TID 90 Days Qty: 270 1RF amlodipine 10 mg tablet 10 mg PO DAILY 90 Days Qty: 90 1RF atorvastatin 40 mg tablet 40 mg PO BEDTIME 90 Days Qty: 90 1RF cholecalciferol (vitamin D3) 50 mcg (2,000 unit) capsule 50 mcg PO DAILY 90 Days Qty: 90 3RF Referrals: Makayla Yepez MD [Primary Care Provider] - 2 days Stand Alone Forms: Work/School Release Print Language: Maori
[2021-10-23 16:55] VITALS: BP 140/87; PULSE 84; RESP 16; TEMP 35.9; O2SAT 95
[2021-10-23 16:56] LABS: B Type Natriuretic Peptide < 10 pg/mL (<100)
== END 2021-10-23 20:28 | disposition home or self-care (01) ==
PROVIDERS: Emergency Medicine; Physician Assistant Medical; Emergency Provider Emergency Medicine; PCP Internal Medicine
DX: L03.116 Cellulitis of left lower limb (principal); L03.115 Cellulitis of right lower limb; R60.0 Localized edema; M79.661 Pain in right lower leg; I10 Essential (primary) hypertension; E78.00 Pure hypercholesterolemia, unspecified; E66.01 Morbid (severe) obesity due to excess calories; Z79.02 Long term (current) use of antithrombotics/antiplatelets
CPT/HCPCS: 36415; 71046; 80053; 83605; 83880; 85025; 87040; 93970; 99284

== ENCOUNTER 2022-03-27 07:33 | Outpatient (REF) | payer OTHER, SELFPAY ==
[2022-03-27 09:06] LABS: Alanine Aminotransferase 46 U/L (0-40); Albumin Level 3.9 g/dL (3.5-5.0); Alkaline Phosphatase 122 U/L (39-117); Anion Gap 12 (12-20); Aspartate Amino Transferase 47 U/L (5-37); Bilirubin Total 0.6 mg/dL (0.0-1.0); Blood Urea Nitrogen 9 mg/dL (9-16); Calcium 9.6 mg/dL (8.4-10.2); Carbon Dioxide 34 mmol/L (22-29); Chloride 93 mmol/L (96-108); Cholesterol 227 mg/dL; Estimated Glomerular Filt Rate > 60; Glucose Fasting 404 mg/dL (60-99); HDL Cholesterol 36 mg/dL; LDL Cholesterol Calculated 156 mg/dl; Potassium 4.5 mmol/L (3.3-5.1); Sodium 134 mmol/L (135-145); Total Protein 7.1 g/dL (6.5-8.0); Triglycerides 176 mg/dL
[2022-04-01 13:13] LABS: Vitamin D 25-OH, D2 9 ng/mL; Vitamin D 25-OH, D3 8 ng/mL; Vitamin D 25-OH, Total 17 ng/mL (30-100)
== END 2022-03-27 07:34 | disposition home or self-care (01) ==
LOC: HO.LAB 07:33
PROVIDERS: PCP Internal Medicine; Visit Provider Internal Medicine
DX: E55.9 Vitamin D deficiency, unspecified (principal); E78.5 Hyperlipidemia, unspecified; I10 Essential (primary) hypertension
CPT/HCPCS: 36415; 80053; 80061; 82306

== ENCOUNTER → 2022-07-09 14:31 | Outpatient (BNVA) | payer OTHER, SELFPAY | PROVIDERS: PCP Internal Medicine; Visit Provider Internal Medicine Endocrinology, Diabetes & Metabolism | DX: E11.9 Type 2 diabetes mellitus without complications (principal); I10 Essential (primary) hypertension; E78.5 Hyperlipidemia, unspecified; E55.9 Vitamin D deficiency, unspecified; E66.01 Morbid (severe) obesity due to excess calories; Z68.43 Body mass index [BMI] 50.0-59.9, adult; Z83.3 Family history of diabetes mellitus; Z79.84 Long term (current) use of oral hypoglycemic drugs | CPT/HCPCS: 82947; 83036; 99202 ==

== ENCOUNTER → 2022-08-26 11:55 | Outpatient (BNVA) | payer OTHER, SELFPAY | PROVIDERS: PCP Internal Medicine; Visit Provider Dietitian, Registered | DX: E11.9 Type 2 diabetes mellitus without complications (principal) | CPT/HCPCS: 97803 ==

== ENCOUNTER 2022-09-16 07:44 | Outpatient (REF) | payer OTHER, SELFPAY ==
[2022-09-16 08:54] LABS: Cholesterol 223 mg/dL; HDL Cholesterol 44 mg/dL; LDL Cholesterol Calculated 146 mg/dl; Triglycerides 166 mg/dL
[2022-09-16 10:01] LABS: Creatinine Urine 178.12 mg/dL
[2022-09-16 10:12] LABS: Microalbumin Urine > 2000.0 mg/L
== END 2022-09-16 07:45 | disposition home or self-care (01) ==
LOC: HO.LAB 07:44
PROVIDERS: PCP Internal Medicine; Visit Provider Internal Medicine Endocrinology, Diabetes & Metabolism
DX: E11.9 Type 2 diabetes mellitus without complications (principal)
CPT/HCPCS: 36415; 80061; 82043

== ENCOUNTER → 2022-10-16 14:18 | Outpatient (BNVA) | payer OTHER, SELFPAY | PROVIDERS: PCP Internal Medicine; Visit Provider Registered Nurse Diabetes Educator | DX: E11.9 Type 2 diabetes mellitus without complications (principal); I10 Essential (primary) hypertension; E78.5 Hyperlipidemia, unspecified; E66.9 Obesity, unspecified | CPT/HCPCS: 99211 ==

== ENCOUNTER 2022-12-11 14:54 | Outpatient (AMB) | payer OTHER, SELFPAY ==
--- NOTE | 2022-12-11 14:56 | MHC.OFFVIS ---
Intake Vital Signs 12/11/22 15:05 Height 5 ft 6 in Weight 325 lb 6.436 oz BMI 52.5 BP 146/90 H Blood Pressure Location Lt brachial Position Sitting Pulse 124 H Pulse Source Pulse Oximeter Intake Visit Reasons: DM Intake Note: Patient here today for Diabetes type 2 follow up visit. 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 Initially diagnosed with T2DM in 2 mos . Was initially started on treatment with metformin. Current regimen metformin 850 BID. Glucometer download shows he is checking his point cares sporadically. There is 6 point cares in the glucometer. Range is 156-282 with average glucose of 210. 29% range with 71% hyperglycemia and no hypoglycemia Most recent A1C 14 on 04/04/2022, Family history of T2DM in father and mother . Has eyes checked yearly, last eye exam Mar 2022, denies retinopathy. Denies neuropathy,Not sees podiatry. Has ? nephropathy, on JAIME/ARB. Has HLD, on statin. On atorvastatin 40 mg for yrs Denies CAD. Not Had diabetes education. [facility] Medical History Cellulitis of right leg COVID-19 Essential hypertension Gross hematuria Hypovitaminosis D Left knee pain Obesity Physical exam Pure hypercholesterolemia Right knee pain Super-super obese Surgical History History of cholecystectomy History of ear surgery Family History Father Hypertension Diabetes Mother Diabetes Hypertension Kidney failure Social History Housing: Apartment Alcohol intake: never Patient Tobacco Use Status: Never used Tobacco e-Cigarette/Vaping Use: Never Used Second Hand Smoke Exposure: No service: No Current occupational status: employed Current occupational exposures/hazards: No Cognitive needs: No Hearing needs: No Vision needs: Yes Physical Exam Vital Signs: Last Vital Signs Pulse 124 H 12/11/22 15:05 BP 146/90 H 12/11/22 15:05 BMI result Body Mass Index 52.5 Absence of Cushingoid features. Absence of acromegalic features. Neck exam reveals nl size thyroid about 15 gms. No thyroid nodules palpable. No carotid bruits present. Lungs CTA. Heart S1 S2, Reg R/R. No M/R/ G. Skin exam reveals absence of vitiligo or acanthosis nigricans. Abdominal exam reveals Soft NT/ND with NA BS. No organomegaly present. Neck Other: . Extrem Other: Visual exam of foot performed. No ulcerations or open lesions. No onchomycosis, no callouses.Pulses 2 + distally Sensation intact to monofilament exam. Vibratory sensation sensed is intact with 128 Hz tuning fork Results AMB Hemoglobin A1c AMB Hemoglobin A1c 8.8 % Last Edit by Robyn Stokes on 12/11/22 15:19 Results Reviewed Results Reviewed: 12/11/22 15:10 Glucose, Whole Blood Routine Laboratory Last Values Glucose (Clinic) 211 mg/dL (60-115) H 12/11/22 15:10 Hgb A1c (Clinic) 8.8 % (4.0-6.0) H 12/11/22 15:13 Assessment & Plan Assessment & Plan (1) Diabetes mellitus: Code(s): E11.9 - Type 2 diabetes mellitus without complications Plan: This is a 41-year-old male with a history of type 2 diabetes being treated with metformin with poor glycemic control and known microvascular complications. Namely macro albuminuria Plan is to have the patient check his point cares pre and post breakfast and dinner. Will start Farxiga 10 mg in light of the macro albuminuria. Went over side effects of Farxiga including but not limited to dehydration, DKA and lyndsay's gangrene he should recheck lipid profile on increased dose of atorvastatin. Could also consider use of alternative G LP 1 like Ozempic in future T Orders: Orders Basic Metabolic Panel Fasting 10 Days E11.9 - Type 2 diabetes mellitus without complications AMB Hemoglobin A1c Today E11.9 - Type 2 diabetes mellitus without complications Medications: New dapagliflozin propanediol (Farxiga) 5 mg PO DAILY 30 tabs 5RF Coding Level of Care Code Est Pt Level 4 (96615) Diagnoses Diabetes mellitus E11.9
[2022-12-11 15:05] VITALS: BP 146/90; PULSE 124; BMI 52.5
[2022-12-11 15:15] LABS: Glucose, Whole Blood 211 mg/dL (60-115)
== END 2022-12-11 16:10 | disposition home or self-care (01) ==
PROVIDERS: PCP Internal Medicine; Visit Provider Internal Medicine Endocrinology, Diabetes & Metabolism
DX: E11.9 Type 2 diabetes mellitus without complications (principal)
CPT/HCPCS: 99214

== ENCOUNTER → 2022-12-11 14:54 | Outpatient (BNVA) | payer OTHER, SELFPAY | PROVIDERS: Visit Provider Internal Medicine Endocrinology, Diabetes & Metabolism | DX: E11.9 Type 2 diabetes mellitus without complications (principal); Z79.84 Long term (current) use of oral hypoglycemic drugs | CPT/HCPCS: 82947; 83036; 99212 ==

== ENCOUNTER 2023-01-22 07:25 | Outpatient (REF) | payer OTHER, SELFPAY ==
[2023-01-22 09:29] LABS: Alanine Aminotransferase 41 U/L (0-40); Albumin Level 3.9 g/dL (3.5-5.0); Alkaline Phosphatase 78 U/L (39-117); Anion Gap 14 (12-20); Aspartate Amino Transferase 46 U/L (5-37); Bilirubin Total 0.4 mg/dL (0.0-1.0); Blood Urea Nitrogen 10 mg/dL (9-16); Calcium 9.2 mg/dL (8.4-10.2); Carbon Dioxide 31 mmol/L (22-29); Chloride 99 mmol/L (96-108); Cholesterol 196 mg/dL (<200); Estimated Glomerular Filt Rate > 60; Glucose Fasting 183 mg/dL (60-99); HDL Cholesterol 44 mg/dL (>40); LDL Cholesterol Calculated 109 mg/dL (<100); Potassium 3.7 mmol/L (3.3-5.1); Sodium 140 mmol/L (135-145); Total Protein 7.5 g/dL (6.5-8.0); Triglycerides 216 mg/dL (<150)
[2023-01-22 09:32] LABS: Vitamin D 25-OH Total 25.9 ng/mL (>30)
[2023-01-22 11:45] LABS: Creatinine Urine 153.43 mg/dL
[2023-01-22 12:37] LABS: Microalbum/Creatinine Ratio Ur 1303.5 ug/mg cr (<30); Microalbumin Urine > 2000.0 mg/L
== END 2023-01-22 07:26 | disposition home or self-care (01) ==
LOC: HO.LAB 07:25
PROVIDERS: Absent Provider Internal Medicine Endocrinology, Diabetes & Metabolism; PCP Internal Medicine; Visit Provider Internal Medicine
DX: E11.9 Type 2 diabetes mellitus without complications (principal); E78.5 Hyperlipidemia, unspecified; E55.9 Vitamin D deficiency, unspecified
CPT/HCPCS: 36415; 80053; 80061; 82043; 82306; 82570

== ENCOUNTER 2023-03-17 14:24 | Outpatient (AMB) | payer OTHER, SELFPAY ==
[2023-03-17 14:25] VITALS: BP 170/100; PULSE 108; BMI 50.7
--- NOTE | 2023-03-17 14:25 | A.OFFVIS_ITS ---
Intake Vital Signs 03/17/23 14:25 Height 5 ft 6 in Weight 314 lb 2.539 oz BMI 50.7 BP 170/100 H Blood Pressure Location Lt brachial Position Sitting Pulse 108 H Pulse Source Pulse Oximeter Intake Visit Reasons: f/u Type 2 DM-CONFIRMED Intake Note: Patient present today to follow up on Type 2 Diabetes Mellitus. Last Diabetic Eye exam: 2022 Last Podiatry Visit: None Random Glucose: 154 mg/dl HgA1C: 9.9% Classifier Tender Required: Yes Classifier Tender Language: Social Services Director Name: Samantha medical staff Information Interpreted: non-clinical & clinical Accompanied by: Self / Same As Patient Allergies dulaglutide [From [facility]] Allergy (Mild, Verified 03/17/23 14:31) Rash Medication List - Last Reconciled 03/17/23 by Kannan Reyes MD amlodipine 10 mg PO DAILY 90 days atorvastatin 80 mg PO DAILY blood sugar diagnostic (FreeStyle Lite Strips) Use 1 test strip once a day blood-glucose meter (FreeStyle Lite Meter kit) As directed cholecalciferol (vitamin D3) 50 mcg PO DAILY 90 days dapagliflozin propanediol (Farxiga) 5 mg PO DAILY ezetimibe 10 mg PO DAILY hydralazine 25 mg PO TID 90 days lancets (FreeStyle Lancets) Use 1 lancet once a day lisinopril 40 mg PO DAILY 90 days metformin 850 mg PO BID 90 days HPI HPI Comments History of Present Illness Details 42 YO M who is seen in consultation for T2DM at the request of PCP. Initially diagnosed with T2DM in 2 mos . Was initially started on treatment with metformin. Current regimen metformin 850 BID. Farxiga 5 mg QD Glucometer download shows he is checking his point cares sporadically. There is 6 point cares in the glucometer. Range is 170-356 with average glucose of 254. 14% range with 86% hyperglycemia and no hypoglycemia Most recent A1C on , Family history of T2DM in father and mother . Has eyes checked yearly, last eye examthis yr , denies retinopathy. Denies neuropathy,Not sees podiatry. Has ? nephropathy, on JAIME/ARB. Has HLD, on statin. On atorvastatin 40 mg for yrs Denies CAD. Not Had diabetes education. [facility] Medical History Cellulitis of right leg COVID-19 Essential hypertension Gross hematuria Hypovitaminosis D Left knee pain Obesity Physical exam Pure hypercholesterolemia Right knee pain Super-super obese Surgical History History of cholecystectomy History of ear surgery Family History Father Hypertension Diabetes Mother Diabetes Hypertension Kidney failure Housing: Apartment Alcohol intake: never Patient Tobacco Use Status: Never used Tobacco e-Cigarette/Vaping Use: Never Used Second Hand Smoke Exposure: No service: No Current occupational status: employed Current occupational exposures/hazards: No Cognitive needs: No Hearing needs: No Vision needs: Yes Physical Exam Vital Signs: Last Vital Signs Pulse 108 H 03/17/23 14:25 BP 170/100 H 03/17/23 14:25 BMI result Body Mass Index 50.7 Absence of Cushingoid features. Absence of acromegalic features. Neck exam reveals nl size thyroid about 15 gms. No thyroid nodules palpable. No carotid bruits present. Lungs CTA. Heart S1 S2, Reg R/R. No M/R/ G. Skin exam reveals absence of vitiligo or acanthosis nigricans. Abdominal exam reveals Soft NT/ND with NA BS. No organomegaly present. Neck Other: . Extrem Other: Visual exam of foot performed. No ulcerations or open lesions. No onchomycosis, no callouses.Pulses 2 + distally Sensation intact to monofilament exam. Vibratory sensation sensed is intact with 128 Hz tuning fork Results AMB Hemoglobin A1c AMB Hemoglobin A1c 9.9 % Last Edit by Robyn Stokes on 03/17/23 14:47 Assessment & Plan Assessment & Plan (1) Diabetes mellitus: Code(s): E11.9 - Type 2 diabetes mellitus without complications Plan: This is a 42-year-old male with a history of type 2 diabetes being treated with metformin and Farxiga with poor glycemic control and known microvascular complications. Namely macro albuminuria Plan is to have the patient check his point cares pre and post breakfast and dinner. Will start basal insulin Lantus 30 units and Ozempic 0.25 mg and titrate as tolerated. Went over side effects of Ozempic including but not limited to nausea, vomiting risk pancreatitis. Will also initiate sensor Vickey 2. Patient should follow-up with the corporate legal secretary to go over administration of insulin. Ozempic 0.25 mg samples given the patient lot number [id number] expiration date 06/24/2024 T Orders: Orders AMB Hemoglobin A1c Today E11.9 - Type 2 diabetes mellitus without complications Medications: New insulin glargine (Lantus Solostar U-100 Insulin) 30 units (0.3 mL) subcut DAILY 30 mL 5RF flash glucose sensor (FreeStyle Vickey 2 Sensor kit) As directed change every 14 days 2 ea 4RF semaglutide (Ozempic) 0.5 mg (0.736 mL) subcut QWEEK 3 mL 5RF pen needle, diabetic (Comfort EZ Pen [place]) As directed injects once a day 50 ea 5RF Coding Level of Care Code Est Pt Level 4 (90780) Diagnoses Diabetes mellitus E11.9
[2023-03-17 14:39] LABS: Glucose, Whole Blood 154 mg/dL (60-115)
== END 2023-03-17 15:00 | disposition home or self-care (01) ==
PROVIDERS: PCP Internal Medicine; Visit Provider Internal Medicine Endocrinology, Diabetes & Metabolism
DX: E11.9 Type 2 diabetes mellitus without complications (principal)
CPT/HCPCS: 99214

== ENCOUNTER → 2023-03-17 14:24 | Outpatient (BNVA) | payer OTHER, SELFPAY | PROVIDERS: PCP Internal Medicine; Visit Provider Internal Medicine Endocrinology, Diabetes & Metabolism | DX: E11.9 Type 2 diabetes mellitus without complications (principal) | CPT/HCPCS: 82947; 83036; 99212 ==

== ENCOUNTER 2023-09-16 07:17 | Outpatient (REF) | payer OTHER, SELFPAY ==
[2023-09-16 07:41] LABS: MANUAL DIFF FLAG NO
[2023-09-16 07:54] LABS: Basophils Percent Auto 0.6 % (0-2); Eosinophils Absolute Auto 0.1 X10*3/uL (0.0-0.4); Eosinophils Percent Auto 1.4 % (0-4); Hematocrit 52.6 % (42.0-52.0); Hemoglobin 16.8 g/dl (14.0-18.0); Imm Gran Abs Auto 0.02 X10*3/uL (0.00-0.03); Imm Gran Pct Auto 0.3 % (0.0-0.4); Lymphocytes Absolute Auto 1.6 X10*3/uL (1.2-4.9); Lymphocytes Percent Auto 25.1 % (20-40); Mean Corpuscular HGB Conc 31.9 g/dl (31.0-36.0); Mean Corpuscular Hemoglobin 26.1 pg (27.0-33.0); Mean Corpuscular Volume 81.7 fL (80.0-98.0); Mean Platelet Volume 10.3 fL (9.4-12.4); Monocytes Absolute Auto 0.5 X10*3/uL (0.1-1.2); Monocytes Percent Auto 8.4 % (2-11); Neutrophils Absolute Auto 4.1 x10*3/uL (2.0-8.3); Neutrophils Percent Auto 64.2 % (45-73); Platelet Count 253 X10*3/uL (160-400); Red Blood Count 6.44 X10*6/uL (4.60-5.80); Red Cell Distribution Width 14.2 % (11.0-16.0); White Blood Count 6.5 X10*3/uL (4.8-10.8)
[2023-09-16 08:43] LABS: Parathyroid Hormone Intact 83.5 pg/mL (8.7-77.1)
[2023-09-16 08:48] LABS: Anion Gap 13 (12-20); Blood Urea Nitrogen 13 mg/dL (9-16); Calcium 9.3 mg/dL (8.4-10.2); Carbon Dioxide 24 mmol/L (22-29); Chloride 102 mmol/L (96-108); Estimated Glomerular Filt Rate > 60; Glucose Random 173 mg/dL (60-115); Iron 73 mcg/dL (45-160); Magnesium 1.9 mg/dL (1.6-2.6); Percent Iron Saturation 31 % (15-50); Phosphorus 2.4 mg/dL (2.7-4.5); Potassium 3.4 mmol/L (3.3-5.1); Sodium 136 mmol/L (135-145); Total Iron Binding Capacity 235 mcg/dL (228-428); Unsaturated Iron Binding 162 ug/dL; Uric Acid 7.7 mg/dL (3.4-7.0)
[2023-09-16 08:55] LABS: Appearance Urine Clear; Color Urine Dark Yellow; Glucose Urine UA Negative (Negative); Leukocyte Esterase Urine Negative (Negative); Nitrite Urine Negative (Negative); PH 5.5 (5.0-9.0); Specific Gravity - Urine >= 1.030 (1.005-1.025); Urine Blood Negative (Negative); Urine Ketones Trace mg/dL (Negative); Urine Protein >=1000 (4+) mg/dL (Neg-Trace)
[2023-09-16 09:10] LABS: Ferritin 81 ng/mL (20-250); Vitamin D 25-OH Total 14.6 ng/mL (>30)
[2023-09-16 09:38] LABS: Creatinine Urine 301.85 mg/dL; Microalbum/Creatinine Ratio Ur 662.5 ug/mg cr (<30); Microalbumin Urine > 2000.0 mg/L; Protein/Creatinine Ratio, Ur 2.26 (<0.2); Total Protein Urine Random 683 mg/dL (<12)
[2023-09-22 05:48] LABS: VITAMIN D (1,25 OH) D3 68 pg/mL; Vit D (1,25-Dihydroxy) Total 68 pg/mL (18-72); Vitamin D (1,25 OH) D2 <8 pg/mL
== END 2023-09-16 07:18 | disposition home or self-care (01) ==
LOC: HO.LAB 07:17
PROVIDERS: PCP Internal Medicine; Visit Provider Internal Medicine
DX: R80.9 Proteinuria, unspecified (principal); E11.22 Type 2 diabetes mellitus with diabetic chronic kidney disease; I10 Essential (primary) hypertension
CPT/HCPCS: 36415; 80048; 81003; 82043; 82306; 82570; 82652; 82728; 83540; 83735; 83970; 84100; 84156; 84550; 85025

== ENCOUNTER 2023-10-27 07:23 | Outpatient (REF) | payer OTHER, SELFPAY ==
[2023-10-27 07:56] LABS: Anion Gap 12 (12-20); Blood Urea Nitrogen 12 mg/dL (9-16); Carbon Dioxide 29 mmol/L (22-29); Chloride 101 mmol/L (96-108); Estimated Glomerular Filt Rate > 60; Glucose Fasting 138 mg/dL (60-99); Potassium 4.1 mmol/L (3.3-5.1); Sodium 138 mmol/L (135-145)
== END 2023-10-27 07:24 | disposition home or self-care (01) ==
LOC: HO.LAB 07:23
PROVIDERS: PCP Internal Medicine; Visit Provider Internal Medicine Endocrinology, Diabetes & Metabolism
DX: E11.9 Type 2 diabetes mellitus without complications (principal)
CPT/HCPCS: 36415; 80048

== ENCOUNTER 2023-11-04 09:03 | Outpatient (AMB) | payer OTHER, SELFPAY ==
--- NOTE | 2023-11-04 09:04 | A.OFFVIS_ITS ---
Vital Signs 11/04/23 09:06 11/04/23 10:39 11/04/23 10:39 Height 5 ft 6 in Weight 295 lb 6.711 oz BMI 47.7 BP 148/90 H 168/90 H Blood Pressure Location Rt brachial Rt brachial Position Sitting Pulse 114 H 90 Pulse Source Pulse Oximeter Intake Visit Reasons: f/u Type 2 DM/LVM Intake Note: NEW Patient presents today to established treatment for Diabetes Type 2: Most recent Diabetic Eye DUE Most recent Podiatry Exam: Does not see a Coin Purse Assembler Most recent HbA1c: 7.2%, 11/04/2023 Random Glucose- 241mg/dL, Air Traffic Instructor Required: Yes Air Traffic Instructor Language: Telephone Claims Representative Services: Air Traffic Instructor Present Air Traffic Instructor [facility] Information Interpreted: non-clinical & clinical Accompanied by: Self / Same As Patient All[facility]ies [facility] Allergy (Mild, Verified 11/04/23 09:05) Rash HPI Comments Details: Laboratory Tests 03/17/23 09/16/23 09/16/23 14:46 07:39 07:40 Potassium Creatinine Estimated GFR Fasting Glucose Hgb A1c (Clinic) 9.9 H Uric Acid 7.7 H Calcium 25-OH Vitamin D Total 14.6 L 1,25 Dihydroxy Vit D2 <8 1,25 Dihydroxy Vit D3 68 PTH Intact 83.5 H U Random Total Protein 683 H Urine Creatinine 301.85 Urine Microalbumin > 2000.0 Microalb/Creat Ratio 662.5 H Protein/Creatinin Ratio 2.26 H 10/27/23 07:33 Potassium 4.1 D Creatinine 0.88 Estimated GFR > 60 Fasting Glucose 138 H Hgb A1c (Clinic) Uric Acid Calcium 9.0 25-OH Vitamin D Total 1,25 Dihydroxy Vit D2 1,25 Dihydroxy Vit D3 PTH Intact U Random Total Protein Urine Creatinine Urine Microalbumin Microalb/Creat Ratio Protein/Creatinin Ratio 43 YO M who is seen in follow up for T2DM. He was last seen by Dr. Reyes 03/19 at which time he was started on Ozempic and Lantus. Initially diagnosed with T2DM in 2022. Was initially started on treatment with metformin. Current regimen: Lantus 15 units (takes approx twice weekly) Ozempic 0.5mg weekly metformin 850 BID Farxiga 5 mg QD He does not have a meter or freestyle with him today. He has difficulty remem bering to swipe his readings. Most recent A1C on 9.9 on 03/19 7.2 today in the office. His weight is down 19 lb. Family history of T2DM in father and mother . Has eyes checked yearly, last eye exam 2023 , denies retinopathy, does have elevated pressures in his followed by Ophthalmology for this. Denies neuropathy Does not see podiatry. He does not walk barefooted. Has proteinuria and has seen Dr. Schwartz for consult 2022, on JAIME/ARB. He has follow-up sometime over the next 2 months. Has HLD, on statin. On atorvastatin 40 mg for yrs Denies CAD. He has low vitamin-D. He reports he is taking a tablet daily but has not been prescribed in quite some time. He denies numbness, tingling, cramping in the extremities. [facility] Medical History Cellulitis of right leg COVID-19 Essential hypertension Gross hematuria Hypovitaminosis D Left knee pain Obesity Physical exam Pure hypercholesterolemia Right knee pain Super-super obese Surgical History History of cholecystectomy History of ear surgery Family History Father Hypertension Diabetes Mother Diabetes Hypertension Kidney failure Social History Housing: Apartment Alcohol intake: never Patient Tobacco Use Status: Never used Tobacco e-Cigarette/Vaping Use: Never Used Second Hand Smoke Exposure: No service: No Current occupational status: employed Current occupational exposures/hazards: No Cognitive needs: No Hearing needs: No Vision needs: Yes Physical Exam Vital Signs: Last Vital Signs Pulse 90 11/04/23 10:39 BP 168/90 H 11/04/23 10:39 BMI result Body Mass Index 47.7 Const General: cooperative and healthy appearing Nutritional Appearance: overweight Orientation/consciousness: oriented to person Neck Neck: Yes normal visual inspection Thyroid: Thyroid normal Resp Effort & Inspection: normal respiratory effort Cardio Jugular venous distension: no JVD Rate: regular rate Rhythm: regular rhythm Heart sounds: S1 normal heart sound present and S2 normal heart sound present Neuro General: oriented to person Extrem Other: Visual exam of foot performed. No ulcerations or open lesions. No onchomycosis, no callouses. Sensation intact to monofilament exam. Vibratory sensation is normal with 128 Hz tuning fork. No edema Results AMB Hemoglobin A1c AMB Hemoglobin A1c 7.2 % Last Edit by MANN Jarrett on 11/04/23 09:24 Results Reviewed Results Reviewed: Laboratory Last Values Glucose (Clinic) 241 mg/dL (60-115) H 11/04/23 09:14 Hgb A1c (Clinic) 7.2 % (4.0-6.0) H 11/04/23 09:22 Laboratory Tests 09/16/23 07:39 PTH Intact 83.5 H Assessment & Plan Assessment & Plan (1) Diabetes mellitus: Code(s): E11.9 - Type 2 diabetes mellitus without complications Category: Medical Plan: continue current meds with exception of increase Ozempic to 1.0 mg. Side effects of GLP-1 agonist were reviewed: Nausea, vomiting, diarrhea, headache, dehydration or low blood sugar. Rare acute kidney injury which can result from dehydration. The patient was counseled to always carry a source of sugar and on the rule of 15's: Take 3 glucose tablets and repeat again in 15 minutes if blood sugar is not in normal range. Continue to repeat every 15 minutes until blood sugar is normal. The patient was counseled to achieve a target A1C of 7% (154 avg) the fasting blood sugars should be 90-130 in the morning and less than 180 two hours after meals. Risks of uncontrolled diabetes discussed with the patient. He was asked to closely monitor his sugars when he increases the Ozempic to 1.0 mg. 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 (2) Essential hypertension: Code(s): I10 - Essential (primary) hypertension Category: Medical Plan: Increase hydralazine to 50 mg t.i.d. Hw will see nutrition therapy and will continue to balance his diet. Recheck BP in two weeks. He will keep scheduled f/u with nephrology. (3) Hypovitaminosis D: Code(s): E55.9 - Vitamin D deficiency, unspecified Category: Medical Plan: Prescription for weekly ergocalciferol for 8 weeks was given. Will recheck blood work in several months Orders: Orders AMB Hemoglobin A1c Today E11.9 - Type 2 diabetes mellitus without complications Referrals Diabetes Education Referral E11.9 - Type 2 diabetes mellitus without complications Social Services Director Nutrition Referral E11.9 - Type 2 diabetes mellitus without complications Medications: New ergocalciferol (vitamin D2) 1,250 mcg PO QWEEK 2 months 9 caps 0RF E55.9 - Vitamin D deficiency, unspecified blood-glucose sensor (Dian[employer]yle Vickey 3 Sensor device) As directed 2 ea 11RF E11.9 - Type 2 diabetes mellitus without complications semaglutide (Ozempic) 1 mg (0.75 mL) subcut QWEEK 30 days 3.75 mL 0RF E11.9 - Type 2 diabetes mellitus without complications hydralazine 50 mg PO TID 30 days 90 tabs 6RF I10 - Essential (primary) hypertension Discontinued hydralazine Discontinued Reason: Doctor's Order 25 mg PO TID 90 days 270 tabs 1RF semaglutide (Ozempic) Discontinued Reason: Doctor's Order 0.5 mg (0.736 mL) subcut QWEEK 3 mL 5RF Coding Level of Care Code Est Pt Level 5 (35122) Complex EM visit Add On G2211 Diagnoses Diabetes mellitus E11.9 Essential hypertension I10 Hypovitaminosis D E55.9 Time Spent (min) 60 Comment Time spent reviewing labs/previous provider notes, face to face and chart documentation
[2023-11-04 09:06] VITALS: BP 148/90; PULSE 114; BMI 47.7
[2023-11-04 09:18] LABS: Glucose, Whole Blood 241 mg/dL (60-115)
[2023-11-04 10:39] VITALS: BP 168/90; PULSE 90
== END 2023-11-04 09:56 | disposition home or self-care (01) ==
PROVIDERS: PCP Internal Medicine; Visit Provider Nurse Practitioner Adult Health
DX: E11.9 Type 2 diabetes mellitus without complications (principal); I10 Essential (primary) hypertension; E55.9 Vitamin D deficiency, unspecified
CPT/HCPCS: 99215; G2211

== ENCOUNTER → 2023-11-04 09:03 | Outpatient (BNVA) | payer OTHER, SELFPAY | PROVIDERS: PCP Internal Medicine; Visit Provider Nurse Practitioner Adult Health | DX: E11.9 Type 2 diabetes mellitus without complications (principal); I10 Essential (primary) hypertension; E55.9 Vitamin D deficiency, unspecified; Z79.899 Other long term (current) drug therapy | CPT/HCPCS: 82947; 83036; 99212 ==

== ENCOUNTER 2023-11-25 12:00 | Outpatient (AMB) | payer OTHER, SELFPAY ==
--- NOTE | 2023-11-25 12:50 | MHC.AMDMED ---
Intake Vital Signs 11/25/23 12:55 BP 170/100 H Blood Pressure Location Rt brachial Position Sitting Intake Visit Reasons: f/u Type 2 DM Allergies dulaglutide [From [facility]] Allergy (Mild, Verified 11/04/23 09:05) Rash HPI Comprehensive Diabetes Asmnt Most Recent Diabetes Results: Microalb/Creat Ratio 662.5 ug/mg cr (<30) H 09/16/23 Cholesterol 196 mg/dL (<200) 01/22/23 HDL Cholesterol 44 mg/dL (>40) 01/22/23 Triglycerides 216 mg/dL (<150) H 01/22/23 Creatinine 0.88 mg/dL (0.5-1.4) 10/27/23 Blood Urea Nitrogen 12 mg/dL (9-16) 10/27/23 Sodium 138 mmol/L (135-145) 10/27/23 Potassium 4.1 mmol/L (3.3-5.1) 10/27/23 Chloride 101 mmol/L (96-108) 10/27/23 Carbon Dioxide 29 mmol/L (22-29) 10/27/23 Calcium 9.0 mg/dL (8.4-10.2) 10/27/23 AST 46 U/L (5-37) H 01/22/23 ALT 41 U/L (0-40) H 01/22/23 Total Protein 7.5 g/dL (6.5-8.0) 01/22/23 Albumin 3.9 g/dL (3.5-5.0) 01/22/23 PFSH Medical History Cellulitis of right leg COVID-19 Essential hypertension Gross hematuria Hypovitaminosis D Left knee pain Obesity Physical exam Pure hypercholesterolemia Right knee pain Super-super obese Surgical History History of cholecystectomy History of ear surgery Family History Father Hypertension Diabetes Mother Diabetes Hypertension Kidney failure Social History Housing: Apartment Alcohol intake: never Patient Tobacco Use Status: Never used Tobacco e-Cigarette/Vaping Use: Never Used Second Hand Smoke Exposure: No service: No Current occupational status: employed Current occupational exposures/hazards: No Cognitive needs: No Hearing needs: No Vision needs: Yes Assessment & Plan Assessment & Plan (1) Diabetes mellitus: Code(s): E11.9 - Type 2 diabetes mellitus without complications Plan: Patient at visit to set up an insert Vickey 3 sensor Instructed patient sensors water proof you can shower, or swim do not submerge sensor in water for over 30 minutes Is sensor falls off cannot put back in you need to replace sensor, customer service number given to patient for sensor replacement Sensor placed on the back of R arm Patient left visit with sensor in warmup Reviewed how to interpret trend arrows Reminded patient that to check finger sticks if symptoms do not match sensor reading. Discussed lag time between finger stick and sensor data.? Instructed patient she should always keep blood glucometer for backup testing if needed Reviewed delay of CGM from fingersticks Reminded pt that if symptoms do not match sensor still needs to check fingersticks. Portions of this note were created using voice recognition software, please excuse any words or phrases that may have been misinterpreted. Patient Instructions: Instrucciones para el paciente: CGM proporciona informaci?n sobre el control de la glucosa en juany a lo kota del d?a, incluidas la hiperglucemia y la hipoglucemia. Contin?e controlando la glucosa en juany seg?n las instrucciones. Siga las pautas de nutrici?n proporcionadas. Informe cualquier molestia de inmediato al proveedor de atenci?n m?dica. Mantente francisco hidratado. Puede ba?arse, ducharse, nadar y hacer ejercicio mientras usa el sensor de glucosa. No sumerja el sensor de glucosa en agua meredith m?s de 30 minutos. Retire el sensor para binta resonancia magn?georges o binta tomograf?a computarizada. Evite la m?quina de j carlos X en los aeropuertos: retire el sensor o solicite la varita Coding Level of Care Code Est Pt Level 1 (20777) Diagnoses Diabetes mellitus E11.9
[2023-11-25 12:55] VITALS: BP 170/100
== END 2023-11-25 12:58 | disposition home or self-care (01) ==
PROVIDERS: PCP Internal Medicine; Visit Provider Registered Nurse Diabetes Educator
DX: E11.9 Type 2 diabetes mellitus without complications (principal)

== ENCOUNTER → 2023-11-25 12:00 | Outpatient (BNVA) | payer OTHER, SELFPAY | PROVIDERS: PCP Internal Medicine; Visit Provider Registered Nurse Diabetes Educator | DX: E11.9 Type 2 diabetes mellitus without complications (principal) | CPT/HCPCS: 99211 ==

== ENCOUNTER 2023-12-16 13:59 | Outpatient (AMB) | payer OTHER, SELFPAY ==
[2023-12-16 14:06] VITALS: BMI 48.3
--- NOTE | 2023-12-16 14:06 | MHC.AMNUTRGE ---
VS Expanded 12/16/23 14:06 Height 5 ft 6 in Weight 299 lb 6.204 oz BMI 48.3 Intake Visit Reasons: f/u Type 2 DM/LVM Allergies dulaglutide [From [facility]] Allergy (Mild, Verified 11/04/23 09:05) Rash Nutrition Presentation Details: Pt presents for MNT for T2DM with proteinuria. The Pt was referred by Prashanth Lovell NP from endocrinology. Pt reports working on diet modifications, reducing on portion sizes. food frequency fruits: 0-1/d ve x/wk dairy: 1-2 /d prot: fish 1x/wk, pork/beef/cheese/eggs/poultry starches > 20 serving/d beverages: water, soda, juices, diet beverages , lemonade physical activity: active at work etoh/smoking---- BS Monitoring Most Recent Diabetes Results: Microalb/Creat Ratio 662.5 ug/mg cr (<30) H 09/16/23 Creatinine 0.88 mg/dL (0.5-1.4) 10/27/23 Blood Urea Nitrogen 12 mg/dL (9-16) 10/27/23 Sodium 138 mmol/L (135-145) 10/27/23 Potassium 4.1 mmol/L (3.3-5.1) 10/27/23 Chloride 101 mmol/L (96-108) 10/27/23 Carbon Dioxide 29 mmol/L (22-29) 10/27/23 Calcium 9.0 mg/dL (8.4-10.2) 10/27/23 OBN-Imvhayz-An.Jeor Equation Height: 5 ft 6 in Weight: 299 lb Resting Metabolic Rate: 2200.99 Calculated Activity Level: Mild Activity Calories Needed to Maintain Weight: 3026.36 Diagnosis Nutrition problem #1: food nutri know defi As related to (etiology) #1: diagnosis As evidenced by (sign/symptom) #1: knowledge deficit of diet [facility] History Cellulitis of right leg COVID-19 Essential hypertension Gross hematuria Hypovitaminosis D Left knee pain Obesity Physical exam Pure hypercholesterolemia Right knee pain Super-super obese Surgical History History of cholecystectomy History of ear surgery Family History Father Hypertension Diabetes Mother Diabetes Hypertension Kidney failure Social History Housing: Apartment Alcohol intake: never Patient Tobacco Use Status: Never used Tobacco e-Cigarette/Vaping Use: Never Used Second Hand Smoke Exposure: No service: No Current occupational status: employed Current occupational exposures/hazards: No Cognitive needs: No Hearing needs: No Vision needs: Yes Assessment & Plan Assessment & Plan (1) T2DM (type 2 diabetes mellitus): Code(s): E11.9 - Type 2 diabetes mellitus without complications Category: Medical Plan: Work on low sodium, high fiber food options Wt: 136 Kg ( 11/2023 ) Est kcal needs as per MSJ: 3000 (40% carb, 30% protein/fat) Est fluid needs as per 25-30 ml/d: 4000 Est prot per day as per 1 g/kg bw: 136 Recommend fiber intake : 8-10 g per day and gradually increase to 25-28 g per day for women and 35-38 g for men or as tolerated Recommend sodium intake per day : less than 1500 mg less than 2000 mg Educated patient on: ( R = reviewed V = verbalizes understanding N/R = needs review N/A = not applicable Food sources of carbohydrate, adequate serving sizes and its role in various health conditions: R Differences between complex carbohydrates a simple carbohydrates, role of fiber in diet: R V N/R Lean protein sources of foods: R Differences between types of fats and role in diet (mono on saturated fat fatty acids, saturated fatty acids, trans fats): R V N/R Food sources of sodium in salt and healthy modifications for heart health in kidney health: R Vitamins and minerals: R V N/R Healthy plate method concept: R Physical activity: Benefits a precaution: R V N/R Hypoglycemia protocol (rule of 15): R V N/R Dietary prevention of Hyperglycemia: R V R/V Patient Instructions: Alternate between rice and root vegetable reducing on salt added to the food Have 2 fruits a day replacing crackers/pastries and similar foods which are higher in salt Include fish at least twice a week Coding Level of Care Code Nutr Indiv Subseq (81340) Diagnoses T2DM (type 2 diabetes mellitus) E11.9 Time Spent (min) 30
[2023-12-16 14:48] VITALS: BMI 48.3
== END 2023-12-16 14:38 | disposition home or self-care (01) ==
PROVIDERS: PCP Internal Medicine; Visit Provider Dietitian, Registered
DX: E11.9 Type 2 diabetes mellitus without complications (principal)

== ENCOUNTER → 2023-12-16 13:59 | Outpatient (BNVA) | payer OTHER, SELFPAY | PROVIDERS: PCP Internal Medicine; Visit Provider Dietitian, Registered | DX: E11.9 Type 2 diabetes mellitus without complications (principal); R80.9 Proteinuria, unspecified; Z71.3 Dietary counseling and surveillance | CPT/HCPCS: 97803 ==

== ENCOUNTER → 2023-12-24 11:23 | Outpatient (BNVA) | payer OTHER, SELFPAY | PROVIDERS: PCP Internal Medicine; Visit Provider Registered Nurse Diabetes Educator | DX: E11.9 Type 2 diabetes mellitus without complications (principal) | CPT/HCPCS: 99211 ==

== ENCOUNTER 2024-01-27 12:26 | Outpatient (AMB) | payer OTHER, SELFPAY ==
--- NOTE | 2024-01-27 07:55 | A.OFFVIS_ITS ---
Vital Signs 01/27/24 12:37 Height 5 ft 6 in Weight 299 lb 13.259 oz BMI 48.4 BP 130/80 Blood Pressure Location Rt brachial Position Sitting Pulse 90 Intake Visit Reasons: f/u Type 2 DM/CONFIRMED Intake Note: Patient presents today for a follow-up on Diabetes Type 2: Last Diabetic eye exam was on: About 3 months ago Last Podiatry Exam was on: Does not see a Senior Care Assistant Most recent HbA1c: 7.2%, 11/04/2023 Random Glucose- 117 mg/dL, Today Club Attendant Required: Yes Club Attendant Language: Coupon Collection Clerk Name: MANN Jarrett/DEVONTE CASTILLO Information Interpreted: non-clinical & clinical Accompanied by: Self / Same As Patient Allergies dulaglutide [From [facility]] Allergy (Mild, Verified 11/04/23 09:05) Rash HPI Comments Details: 43 YO M who is seen in follow up for T2DM. He was last seen by myself 11/04/23 with an A1C of 7.2%.Ozempic was increased to 1 mg at his visit and he was seen by Elizabeth SCHULTZ in November to start on freestyle Vickey 3. He was last seen by Dr. Reyes 03/19 at which time he was started on Ozempic and Lantus for an A1C of 9.9% Initially diagnosed with T2DM in 2022. Was initially started on treatment with metformin. Current regimen: Ozempic 1.0 weekly metformin 850 BID Farxiga 5 mg QD Dexcom average glucose: [162 ] 14 day continuous glucose monitor report reviewed Glucose Managment indicator [7.2 ] % TIme in ranges: [2 ] % very high (above 250) [ 23] % high ?(181-250) [75 ] % in range ?(70-180] [ 0] % low (69-55) [0 ] % ?very low (below 54) [ 21.8] glucose variability Interpretation [readings overall 20 points above target with some increse with lunch and supper post prandial ] weight is down 19 lb since starting on Ozempic. Family history of T2DM in father and mother Has eyes checked yearly, last eye exam 2023 , denies retinopathy, does have elevated pressures and is followed by Ophthalmology for , no numbness, tingling or cramping. Denies neuropathy Does not see podiatry. He does not walk barefooted. 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 Schwartz for consult 2022, on JAIME inhibitor. He has follow-up sometime over the next 2 months. Has HLD, on statin. On atorvastatin 80mg 12/2022 ldl 109 Denies CAD. He has low vitamin-D. He reports he is taking a tablet daily b [facility] screen Fibrosis-4 (Fib-4) Index for liver fibrosis (calculated on lab work done: 01/14 23) [1.42 ] points Advanced fibrosis [excluded ] Approximate Fibrosis stage Itzel [0-1 ] *Use with caution in patients <35 or >65 years old, as the score has been shown to be less reliable in these patients. Prior Imaging [none] Action Plan: rescreen two years from date of screening labs[12/2024 ] BNP<10 2021 PFSH Medical History Cellulitis of right leg COVID-19 Essential hypertension Gross hematuria Hypovitaminosis D Left knee pain Obesity Physical exam Pure hypercholesterolemia Right knee pain Super-super obese Surgical History History of cholecystectomy History of ear surgery Family History Father Hypertension Diabetes Mother Diabetes Hypertension Kidney failure Social History Housing: Apartment Alcohol intake: never Patient Tobacco Use Status: Never used Tobacco e-Cigarette/Vaping Use: Never Used Second Hand Smoke Exposure: No service: No Current occupational status: employed Current occupational exposures/hazards: No Cognitive needs: No Hearing needs: No Vision needs: Yes Physical Exam Vital Signs: Last Vital Signs Pulse 90 01/27/24 12:37 BP 130/80 01/27/24 12:37 BMI result Body Mass Index 48.4 Const Other: Absence of Cushingoid features. Absence of acromegalic features. Neck exam reveals nl size thyroid about 15 gms. No thyroid nodules palpable. No carotid bruits present. Lungs CTA. Heart S1 S2, Reg R/R. No M/R G. Skin exam reveals absence of vitiligo or acanthosis nigricans. No edema Visual exam of foot performed. No ulcerations or open lesions. No inter digit maceration or fissuring. No onychomycosis, no callouses. Sensation intact to monofilament exam. Vibratory sensation is normal with 128 Hz tuning fork. Results Reviewed Results Reviewed: Laboratory Last Values Glucose (Clinic) 117 mg/dL (60-115) H 01/27/24 12:41 Laboratory Tests 03/27/22 09/16/22 01/22/23 07:44 08:03 07:33 Plt Count Potassium Estimated GFR Hgb A1c (Clinic) Calcium Triglycerides 216 H Cholesterol 196 LDL Cholesterol, Calc 156 146 109 H HDL Cholesterol 44 25-OH Vitamin D Total PTH Intact 09/16/23 10/27/23 11/04/23 07:39 07:33 09:22 Plt Count 253 Potassium 4.1 D Estimated GFR > 60 Hgb A1c (Clinic) 7.2 H Calcium 9.0 Triglycerides Cholesterol LDL Cholesterol, Calc HDL Cholesterol 25-OH Vitamin D Total 14.6 L PTH Intact 83.5 H Assessment & Plan Assessment & Plan (1) T2DM (type 2 diabetes mellitus): Code(s): E11.9 - Type 2 diabetes mellitus without complications Category: Medical Plan: Type 2 diabetic with improving glucose numbers. Will increase Ozempic to 2.0mg weekly, continue metformin and farxiga. If was advised to decrease metformin to once daily if he starts to develop lows. Continue farxiga. Medications: New semaglutide (Ozempic) 2 mg (0.75 mL) subcut QWEEK 30 days 3.75 mL 6RF E11.9 - Type 2 diabetes mellitus without complications Discontinued semaglutide (Ozempic) Discontinued Reason: Doctor's Order 1 mg (0.75 mL) subcut QWEEK 30 days 3.75 mL 2RF E11.9 - Type 2 diabetes mellitus without complications Patient Instructions: The patient was counseled to achieve a target A1C of 7% (154 avg). Fasting blood sugars should be 90-130 in the morning and less than 180 two hours after meals. Reviewed the relationship between poor diabetic control and the development of complications. Reviewed rx of low glucose He will continue to f/u with nephrology and return to endo clinic in 6 months. Coding Level of Care Code Est Pt Level 4 (19878) Complex EM visit Add On G2211 Diagnoses T2DM (type 2 diabetes mellitus) E11.9 Time Spent (min) 30 Comment face to face, doc chart and lab review
[2024-01-27 12:37] VITALS: BP 130/80; PULSE 90; BMI 48.4
[2024-01-27 12:44] LABS: Glucose, Whole Blood 117 mg/dL (60-115)
== END 2024-01-27 12:51 | disposition home or self-care (01) ==
PROVIDERS: PCP Internal Medicine; Visit Provider Nurse Practitioner Adult Health
DX: E11.9 Type 2 diabetes mellitus without complications (principal)
CPT/HCPCS: 99214; G2211

== ENCOUNTER → 2024-01-27 12:26 | Outpatient (BNVA) | payer OTHER, SELFPAY | PROVIDERS: PCP Internal Medicine; Visit Provider Nurse Practitioner Adult Health | DX: E11.9 Type 2 diabetes mellitus without complications (principal) | CPT/HCPCS: 82947; 99212 ==

== ENCOUNTER 2024-02-10 14:38 | Outpatient (AMB) | payer OTHER, SELFPAY ==
--- NOTE | 2024-02-10 14:41 | A.OFFVIS_ITS ---
VS Expanded 02/10/24 14:42 Height 5 ft 6 in Weight 299 lb 13.259 oz BMI 48.4 Intake Visit Reasons: T2DM Allergies dulaglutide [From [facility]] Allergy (Mild, Verified 02/17/24 13:54) Rash Nutrition Presentation Details: Pt presents for MNT f/u for T2DM Pt reports keeping sedentary however bought a treadmill and is contemplating when to start using it. Pt verbalizes having challenges trying new foods, becomes nauseous when trying veg/fruits fried foods/pastries and similar : 2 a day BS Monitoring Most Recent Diabetes Results: No Data to Display [facility] Medical History (Updated 02/17/24 @ 17:42 by Makayla Cochran MD) Cellulitis of right leg Physical exam Right knee pain Left knee pain Hypovitaminosis D Super-super obese Gross hematuria COVID-19 Obesity Pure hypercholesterolemia Essential hypertension Surgical History History of ear surgery History of cholecystectomy Family History Father Hypertension Diabetes Mother Diabetes Hypertension Kidney failure Social History Housing: Apartment Alcohol intake: never Patient Tobacco Use Status: Never used Tobacco e-Cigarette/Vaping Use: Never Used Second Hand Smoke Exposure: No service: No Current occupational status: employed Current occupational exposures/hazards: No Cognitive needs: No Hearing needs: No Vision needs: Yes Assessment & Plan Assessment & Plan (1) T2DM (type 2 diabetes mellitus): Code(s): E11.9 - Type 2 diabetes mellitus without complications Category: Medical Plan: Work on low sodium, high fiber food options and reducing saturated fats- continue Wt: 136 Kg ( 11/2023 ), 02/17 Est kcal needs as per MSJ: 3000 (40% carb, 30% protein/fat) Est fluid needs as per 25-30 ml/d: 4000 Est prot per day as per 1 g/kg bw: 136 Recommend fiber intake : 8-10 g per day and gradually increase to 25-28 g per day for women and 35-38 g for men or as tolerated Recommend sodium intake per day : less than 1500 mg less than 2000 mg Educated patient on: ( R = reviewed V = verbalizes understanding N/R = needs review N/A = not applicable * Food sources of carbohydrate, adequate serving sizes and its role in various health conditions: R * Differences between complex carbohydrates a simple carbohydrates, role of fiber in diet: R * Lean protein sources of foods: R * Differences between types of fats and role in diet (mono on saturated fat fatty acids, saturated fatty acids, trans fats): R * Food sources of sodium in salt and healthy modifications for heart health in kidney health: R * Vitamins and minerals: R V N/R * Healthy plate method concept: R * Physical activity: Benefits a precaution: R * Hypoglycemia protocol (rule of 15): R V N/R * Dietary prevention of Hyperglycemia: R Patient Instructions: Work on reducing amount of fat in diet by having baked animal foods instead of fried Try one new fruit , replacing a pastry once a day (try fruit smothie -s ee recipe ideas) Coding Level of Care Code Nutr Indiv Subseq (65226) Diagnoses T2DM (type 2 diabetes mellitus) E11.9 Time Spent (min) 30
[2024-02-10 14:42] VITALS: BMI 48.4
== END 2024-02-10 15:12 | disposition home or self-care (01) ==
PROVIDERS: PCP Internal Medicine; Visit Provider Dietitian, Registered
DX: E11.9 Type 2 diabetes mellitus without complications (principal)

== ENCOUNTER → 2024-02-10 14:38 | Outpatient (BNVA) | payer OTHER, SELFPAY | PROVIDERS: PCP Internal Medicine; Visit Provider Dietitian, Registered | DX: E11.9 Type 2 diabetes mellitus without complications (principal) | CPT/HCPCS: 97803 ==

== ENCOUNTER 2024-02-17 13:19 | Outpatient (AMB) | payer OTHER, SELFPAY ==
[2024-02-17 13:33] VITALS: BP 136/82; BMI 48.3
--- NOTE | 2024-02-17 13:33 | A.OFFPC_ITS ---
Vital Signs 02/17/24 13:33 Height 5 ft 6 in Weight 299 lb BMI 48.3 BP 136/82 Blood Pressure Location Lt brachial Position Sitting Intake Visit Reasons: OVERDUE ANNUAL PE- NEEDS A1C Intake Note: Patient here for a physical exam Money Laundering Investigator Required: No Accompanied by: Self / Same As Patient Allergies dulaglutide [From [facility]] Allergy (Mild, Verified 02/17/24 13:54) Rash Medication List - Last Reconciled 02/17/24 by Makayla Cochran MD amlodipine 10 mg PO DAILY 90 days atorvastatin 80 mg PO DAILY blood sugar diagnostic (FreeStyle Lite Strips) Use 1 test strip once a day blood-glucose meter (FreeStyle Lite Meter kit) As directed blood-glucose meter,continuous (FreeStyle Vickey 3 Wesley) As directed blood-glucose sensor (FreeStyle Vickey 3 Sensor device) As directed cholecalciferol (vitamin D3) 50 mcg PO DAILY 90 days dapagliflozin propanediol (Farxiga) 5 mg PO DAILY ergocalciferol (vitamin D2) 1,250 mcg PO QWEEK 2 months ezetimibe 10 mg PO DAILY flash glucose sensor (FreeStyle Vickey 2 Sensor kit) As directed change every 14 days hydralazine 50 mg PO TID 30 days insulin glargine (Lantus Solostar U-100 Insulin) 30 units (0.3 mL) subcut DAILY lancets (FreeStyle Lancets) Use 1 lancet once a day lisinopril 40 mg PO DAILY 90 days metformin 850 mg PO BID 90 days pen needle, diabetic (Comfort EZ Pen [place]) As directed injects once a day semaglutide (Ozempic) 2 mg (0.75 mL) subcut QWEEK 30 days Tobacco use date assessed: 02/17/24 Dental Screening Dental Screen Date: 02/17/24 Did you have a dental visit in the last 12 months?: Yes Did you have a dental problem in the last 6 months where you did not have access to dental care?: No Was dental information given to patient?: Patient has dentist HPI HPI Comments History of Present Illness Details This is a 43-year-old male with diabetes mellitus type 2 and morbid obesity that comes for his physical exam. A1c still elevated and this is follow by Endocrinology. Diabetic eye exam done less than a year ago. He is morbidly obese and declines weight loss surgery. Was advised to do diet and exercise to reach BMI goal less than 30. [facility] Medical History (Updated 02/17/24 @ 17:42 by Makayla Cochran MD) Cellulitis of right leg Physical exam Right knee pain Left knee pain Hypovitaminosis D Super-super obese Gross hematuria COVID-19 Obesity Pure hypercholesterolemia Essential hypertension Surgical History History of ear surgery History of cholecystectomy Family History Father Hypertension Diabetes Mother Diabetes Hypertension Kidney failure Social History Housing: Apartment Alcohol intake: never Patient Tobacco Use Status: Never used Tobacco e-Cigarette/Vaping Use: Never Used Second Hand Smoke Exposure: No service: No Current occupational status: employed Current occupational exposures/hazards: No Cognitive needs: No Hearing needs: No Vision needs: Yes Questionnaire PHQ-9 Over the last 2 weeks, how often have you been bothered by any of the following problems? 1. Little interest or pleasure in doing things: not at all 2. Feeling down, depressed, or hopeless: not at all 3. Trouble falling or staying asleep, or sleeping too much: not at all 4. Feeling tired or having little energy: not at all 5. Poor appetite or overeating: several days 6. Feeling bad about yourself - or that you are a failure or have let yourself or your family down: not at all 7. Trouble concentrating on things, such as reading the newspaper or watching television: not at all 8. Moving or speaking so slowly that other people could have noticed. Or the opposite - being so fidgety or restless that you have been moving around a lot more than usual: not at all 9. Thoughts that you would be better off or of hurting yourself in some way: not at all Total score: 1 Depression Screening Interpretation: Negative Depression Screening Done: Yes 16978 - PHQ-9 Billing: Yes Source: Developed by Drs. Kannan Vigil, Radha Bauer, Samuel Rodriguez and colleagues, with an educational dorinda from [employer]. Thrive Questionnaire Date Thrive assessed: 06/30/22 I am a: Patient What is your living situation today?: I have a steady place to live Within the past 12 months, did the food you bought not last and you didn't have the money to get more?: I choose not to answer this question Within the past 12 months, did you worry whether your food would run out before you got money to buy more?: Never true Do you have trouble paying for medicines?: No Do you have trouble getting transportation to medical appointments?: No Do you have trouble paying your heating and electricity bill?: No Do you have trouble taking care of your child, family member or friend?: No Do you have trouble with day-to-day activities such as bathing, preparing meals, shopping, managing finances, etc.?: No Are you currently unemployed and looking for a job?: No Are you interested in more education?: No Please select the resources that you would like help with: None Currently or been in a relationship where the following occur: I choose not to answer THRIVE Score: 0 AUDIT C Alcohol Use Questionnaire (AUDIT-C) 1. How often do you have a drink containing alcohol?: Never Total Score: 0 Score Reviewed/Action Taken: No YAEL-7 AMB Questionnaire YAEL-7 Date YAEL - 7 assessed: 06/30/22 Feeling nervous, anxious, or on edge: 0 = Not at all Not being able to stop or control worryin = Not at all Worrying too much about different things: 0 = Not at all Trouble relaxin = Not at all Being so restless that it is hard to sit still: 0 = Not at all Becoming easily annoyed or irritable: 0 = Not at all Feeling afraid as if something awful might happen: 0 = Not at all Total YAEL-7 score (0-4 normal; 5-9 mild; 10-14 moderate; 15-21 severe): 0 Source: Developed by Drs. Kannan Vigil, Radha Bauer, Samuel Rodriguez and colleagues, with an educational dorinda from [employer]. Review of Systems Const All systems reviewed & are unremarkable except as noted in HPI and below Card Denies chest pain at rest, Denies chest pain with activity, Denies edema, Denies irregular heart rhythm, Denies claudication, Denies dyspnea, Denies dyspnea on exertion, Denies orthopnea, Denies paroxysmal nocturnal dyspnea and Denies slow heart rate Resp Denies cough, Denies dyspnea and Denies dyspnea on exertion Physical exam (Primary Care) Vital Signs: Last Vital Signs BP 136/82 02/17/24 13:33 BMI result Body Mass Index 48.3 BMI Assessment/Plan discussion: High BMI High, discussed plan: lifestyle, weight reduction, dietary and physical activity Tobacco/Smoking Status: Tobacco use Status Tobacco use date assessed 02/17/24 02/17/24 13:38 Patient Tobacco Use Status Never used Tobacco 02/17/24 13:36 e-Cigarette/Vaping Use Never Used 02/17/24 13:36 PHQ-9: PHQ-9 Score PHQ-9: Total score 1 02/17/24 14:10 Depression Screening Interpretation: Negative Thrive Assessment: Date of Thrive Assessment Date Thrive assessed 06/30/22 02/17/24 13:36 Currently or been in a relationship where the following occur: I choose not to answer [facility] Head: Yes normal to inspection, Yes normocephalic and Yes atraumatic Ears: external ears normal Eyes General: appearance normal, both eyes and all related structures Eyelids: Yes eyelids normal Conjunctivae: conjunctivae normal Neck Neck: Yes normal visual inspection and Yes supple Resp Effort & Inspection: normal respiratory effort Auscultation: clear to auscultation bilaterally Cardio Jugular venous distension: no JVD Rate: regular rate Rhythm: regular rhythm Heart sounds: S1 normal heart sound present and S2 normal heart sound present GI Inspection: Yes normal to inspection Palpation (GI): Soft to palpation and nontender Auscultation: normal bowel sounds Skin General skin exam: no rashes or lesions noted Neuro General: no focal motor deficits Extrem General: Yes full ROM Psych Appearance: grossly normal Office Procedures Flu Questionnaire Does the patient have a severe egg allergy?: No Does the patient have severe life threatening allergies?: No Does the patient have a fever or illness today?: No Has the patient ever had Guillain-[place] Syndrome?: No Has the patient ever had any past reaction to a flu shot?: No Results AMB Hemoglobin A1c AMB Hemoglobin A1c 7.4 % Last Edit by MANN Montero on 02/17/24 13:4 1 Immunizations Fluarix Triv [id number] (PF) 45 mcg (15 mcg x 3)/0.5 mL IM syringe Performing Provider: Makayla Cochran MD Performing Location: [facility] Administered by: MANN Montero on 02/17/24 14:09 Dose Route Admin Location Dispensed Lot Number Expiration Date NDC Culinary Director 0.5 mL IM Left Deltoid 0.5 mL [id number] 10/24/24 07010-132-96 [employer] VIS Given Date VIS Provided VIS Publication Date 02/17/24 Single Vaccine 20 Eligibility Eligibility Date Funding Source Not [facility] Eligible 02/17/24 Private Results Reviewed Results Reviewed: Laboratory Last Values Hgb A1c (Clinic) 7.4 % (4.0-6.0) H 02/17/24 13:39 Coding Level of Care Code Est Pt Prev Care 40-64y(06975) Diagnoses Physical exam Z00.00 Type 2 diabetes mellitus with hyperglycemia, with long-term current use of insulin E11.65; Z79.4 Diabetes mellitus correction insulin use: with correction use Diabetes mellitus complication status: with hyperglycemia Morbid obesity with BMI of 45.0-49.9, adult E66.01; Z68.42 Time Spent (min) 30 Assessment & Plan Assessment & Plan (1) Physical exam: Code(s): Z00.00 - Encounter for general adult medical examination without abnormal findings Category: Medical Plan: Repeat in a year. (2) T2DM (type 2 diabetes mellitus): Code(s): E11.9 - Type 2 diabetes mellitus without complications Category: Medical Qualifiers: Diabetes mellitus correction insulin use: with air drill operator use Diabetes mellitus complication status: with hyperglycemia Qualified Code(s): E11.65 - Type 2 diabetes mellitus with hyperglycemia; Z79.4 - morgue attendant (current) use of insulin Plan: Continue Farxiga, Ozempic, metformin and insulin. A1c goal is equal or less than 7%. Follow-up with endocrinology. (3) Morbid obesity with BMI of 45.0-49.9, adult: Code(s): E66.01 - Morbid (severe) obesity due to excess calories; Z68.42 - Body mass index [BMI] 45.0-49.9, adult Category: Medical Plan: Start diet and exercise. BMI goal is less than 30. Orders: Orders AMB Hemoglobin A1c Today E11.9 - Type 2 diabetes mellitus without complications Microalbumin, Random (w Creat) Today R80.9 - Proteinuria, unspecified Comprehensive [place]. Panel Fast Today E11.9 - Type 2 diabetes mellitus without complications Influenza [id number] Immunization Today Z23 - Encounter for immunization Lipid Panel Today E78.5 - Hyperlipidemia, unspecified Vitamin D 25-OH Total Today E55.9 - Vitamin D deficiency, unspecified Medications: New atorvastatin 40 mg PO BEDTIME 90 tabs 1RF 90 days Refilled ergocalciferol (vitamin D2) 1,250 mcg PO QWEEK 9 caps 0RF 2 months E55.9 - Vitamin D deficiency, unspecified Discontinued atorvastatin Discontinued Reason: Patient Completed Course 80 mg PO DAILY 30 tabs 5RF
== END 2024-02-17 14:10 | disposition home or self-care (01) ==
PROVIDERS: PCP Internal Medicine; Visit Provider Internal Medicine
DX: Z00.00 Encounter for general adult medical examination without abnormal findings (principal); E11.65 Type 2 diabetes mellitus with hyperglycemia; E66.01 Morbid (severe) obesity due to excess calories; Z68.42 Body mass index [BMI] 45.0-49.9, adult; Z79.4 Long term (current) use of insulin

== ENCOUNTER → 2024-02-17 13:19 | Outpatient (BNVA) | payer OTHER, SELFPAY | PROVIDERS: PCP Internal Medicine; Visit Provider Internal Medicine | DX: Z00.00 Encounter for general adult medical examination without abnormal findings (principal); E11.65 Type 2 diabetes mellitus with hyperglycemia; E66.01 Morbid (severe) obesity due to excess calories; Z68.42 Body mass index [BMI] 45.0-49.9, adult; Z79.4 Long term (current) use of insulin; Z79.85 Long-term (current) use of injectable non-insulin antidiabetic drugs; Z23 Encounter for immunization | CPT/HCPCS: 83036; 90471; 90656; 96127; 99396 ==

== ENCOUNTER 2024-03-02 07:37 | Outpatient (REF) | payer OTHER, SELFPAY ==
[2024-03-02 09:44] LABS: Cholesterol 211 mg/dL (<200); HDL Cholesterol 49 mg/dL (>40); LDL Cholesterol Calculated 142 mg/dL (<100); Triglycerides 102 mg/dL (<150)
[2024-03-02 10:03] LABS: Creatinine Urine 185.19 mg/dL
[2024-03-02 10:07] LABS: Alanine Aminotransferase 15 U/L (0-40); Albumin Level 3.8 g/dL (3.5-5.0); Alkaline Phosphatase 76 U/L (39-117); Anion Gap 11 (12-20); Aspartate Amino Transferase 37 U/L (5-37); Bilirubin Total 0.3 mg/dL (0.0-1.0); Blood Urea Nitrogen 10 mg/dL (9-16); Carbon Dioxide 30 mmol/L (22-29); Chloride 101 mmol/L (96-108); Cholesterol 212 mg/dL (<200); Estimated Glomerular Filt Rate > 60; Glucose Fasting 116 mg/dL (60-99); Glucose Random 115 mg/dL (60-115); HDL Cholesterol 50 mg/dL (>40); LDL Cholesterol Calculated 144 mg/dL (<100); Potassium 3.8 mmol/L (3.3-5.1); Sodium 138 mmol/L (135-145); Total Protein 7.2 g/dL (6.5-8.0); Triglycerides 90 mg/dL (<150)
[2024-03-02 10:09] LABS: Vitamin D 25-OH Total 15.9 ng/mL (>30)
[2024-03-02 10:17] LABS: Microalbum/Creatinine Ratio Ur 1079.9 ug/mg cr (<30); Microalbumin Urine > 2000.0 mg/L
== END 2024-03-02 07:38 | disposition home or self-care (01) ==
LOC: HO.LAB 07:37
PROVIDERS: Nurse Practitioner Adult Health; PCP Internal Medicine; Visit Provider Internal Medicine
DX: R80.9 Proteinuria, unspecified (principal); E55.9 Vitamin D deficiency, unspecified; E11.9 Type 2 diabetes mellitus without complications; E78.5 Hyperlipidemia, unspecified
CPT/HCPCS: 36415; 80048; 80053; 80061; 82043; 82306; 82570

== ENCOUNTER 2024-05-11 10:04 | Outpatient (AMB) | payer OTHER, SELFPAY ==
[2024-05-11 10:13] VITALS: BMI 47.0
--- NOTE | 2024-05-11 10:13 | A.OFFVIS_ITS ---
VS Expanded 05/11/24 10:13 Height 5 ft 6 in Weight 291 lb 7.218 oz BMI 47.0 Intake Visit Reasons: t2dm Allergies dulaglutide [From [facility]] Allergy (Mild, Verified 02/17/24 13:54) Rash Nutrition Presentation Details: Pt presents for MNT f/u for T2DM Pt reports working on taking medication (ozempic) consistently as prescribed by MD Pt reports this is helping with reducing portion sizes d/t less appetite denies constipation/diarrhea/nausea/vomiting food frequency fruits: not including beans/lentils: 0-1x/wk fried foods: airfrying non starchy veg: dislikes eating out 3x/wk fast foods Has 2 meals/d (homemade) and fast food meal/d majority of the time Beverages:water, juice, soda meals consist of starches/starchy veg and protein (poultry/beef/eggs, cheese) BS Monitoring Most Recent Diabetes Results: Microalb/Creat Ratio 1079.9 ug/mg cr (<30) H 03/02/24 Cholesterol 212 mg/dL (<200) H 03/02/24 HDL Cholesterol 50 mg/dL (>40) 03/02/24 Triglycerides 90 mg/dL (<150) 03/02/24 Creatinine 0.81 mg/dL (0.5-1.4) 03/02/24 Blood Urea Nitrogen 10 mg/dL (9-16) 03/02/24 Sodium 138 mmol/L (135-145) 03/02/24 Potassium 3.8 mmol/L (3.3-5.1) 03/02/24 Chloride 101 mmol/L (96-108) 03/02/24 Carbon Dioxide 30 mmol/L (22-29) H 03/02/24 Calcium 9.0 mg/dL (8.4-10.2) 03/02/24 AST 37 U/L (5-37) 03/02/24 ALT 15 U/L (0-40) 03/02/24 Total Protein 7.2 g/dL (6.5-8.0) 03/02/24 Albumin 3.8 g/dL (3.5-5.0) 03/02/24 [facility] Medical History (Updated 02/17/24 @ 17:42 by Makayla Cochran MD) Cellulitis of right leg Physical exam Right knee pain Left knee pain Hypovitaminosis D Super-super obese Gross hematuria COVID-19 Obesity Pure hypercholesterolemia Essential hypertension Surgical History History of ear surgery History of cholecystectomy Family History Father Hypertension Diabetes Mother Diabetes Hypertension Kidney failure Social History Housing: Apartment Alcohol intake: never Patient Tobacco Use Status: Never used Tobacco e-Cigarette/Vaping Use: Never Used Second Hand Smoke Exposure: No service: No Current occupational status: employed Current occupational exposures/hazards: No Cognitive needs: No Hearing needs: No Vision needs: Yes Assessment & Plan Assessment & Plan (1) T2DM (type 2 diabetes mellitus): Code(s): E11.9 - Type 2 diabetes mellitus without complications Category: Medical Qualifiers: Diabetes mellitus unit receptionist insulin use: with unit receptionist use Diabetes mellitus complication status: with hyperglycemia Qualified Code(s): E11.65 - Type 2 diabetes mellitus with hyperglycemia; Z79.4 - prison (current) use of insulin Plan: Work on low sodium, high fiber food options and reducing saturated fats- continue Wt: 136 Kg ( 11/2023 ), 02/17, 132 kg (05/21) Est kcal needs as per MSJ: 2600 (40% carb, 30% protein/fat) Est fluid needs as per 25-30 ml/d: 4000 Est prot per day as per 1 g/kg bw: 130 Recommend fiber intake : 8-10 g per day and gradually increase to 25-28 g per day for women and 35-38 g for men or as tolerated Recommend sodium intake per day : less than 1500 mg less than 2000 mg Educated patient on: ( R = reviewed V = verbalizes understanding N/R = needs review N/A = not applicable * Food sources of carbohydrate, adequate serving sizes and its role in various health conditions: R * Differences between complex carbohydrates a simple carbohydrates, role of fiber in diet: R * Lean protein sources of foods: R * Differences between types of fats and role in diet (mono on saturated fat fatty acids, saturated fatty acids, trans fats): R * Food sources of sodium in salt and healthy modifications for heart health in kidney health: R * Vitamins and minerals: R V N/R * Healthy plate method concept: R * Physical activity: Benefits a precaution: R * Hypoglycemia protocol (rule of 15): R V N/R * Dietary prevention of Hyperglycemia: R Patient Instructions: Include a fruit at lunch and continue reducing on a serving of starch (fries/rice/potato/bread/root vegetable) see list of fiber rich foods, low in salt (fruit, sweet potato, leafy vegetables Continue working on reducing on salt added to the foods , see list of choices discussed, low seasonings, cooking methods Coding Level of Care Code Nutr Indiv Subseq (68862) Diagnoses Type 2 diabetes mellitus with hyperglycemia, with long-term current use of insulin E11.65; Z79.4 Diabetes mellitus prison insulin use: with prison use Diabetes mellitus complication status: with hyperglycemia Time Spent (min) 30
== END 2024-05-11 10:39 | disposition home or self-care (01) ==
PROVIDERS: PCP Internal Medicine; Visit Provider Dietitian, Registered
DX: E11.65 Type 2 diabetes mellitus with hyperglycemia (principal); Z79.4 Long term (current) use of insulin

== ENCOUNTER → 2024-05-11 10:04 | Outpatient (BNVA) | payer OTHER, SELFPAY | PROVIDERS: PCP Internal Medicine; Visit Provider Dietitian, Registered | DX: E11.65 Type 2 diabetes mellitus with hyperglycemia (principal); E66.9 Obesity, unspecified; Z71.3 Dietary counseling and surveillance; Z68.42 Body mass index [BMI] 45.0-49.9, adult | CPT/HCPCS: 97803 ==

== ENCOUNTER 2024-06-22 06:27 | Outpatient (REF) | payer OTHER, SELFPAY ==
--- OUTSIDE RECORDS SUMMARY | 2024-06-22 06:30 | XMS_ITS | Encounter Summary ---
Author Organization [facility] Address [address] [facility] [address] [place] [address] Phone Care Team Providers Care Oncology Pharmacist Name Role Phone Makayla Yepez MD Primary Care Provider [phone] Encounter Details Date Type Department Care Team (Late st Contact Info) Description 06/03/2024 Orders Only [facility] [address] [place] [id number] Nirmal Gomez MD [address] [facility] [address] [place] [address] Proteinuria, not otherwise specified; Type 2 diabetes mellitus with diabetic chronic kidney disease (HCC) Social History Tobacco Use Types Packs/Day Years Used Date Smoking Tobacco: Never Alcohol Use Standard Drinks/Week Comments No 0 (1 standard drink = 0.6 oz pur e alcohol) Sex and Gender Information Value Date Recorded Sex Assigned at Not on file Legal Sex Male 5:05 PM EST Gender Identity Not on file Sexual Orientation Not on file documented as of this encounter Plan of Treatment Not on file documented as of this encounter Visit Diagnoses Diagnosis Proteinuria, not otherwise specified Type 2 diabetes mellitus with diabetic chronic kidney disease (HCC) documented in this encounter Care Teams Oncology Pharmacist Relationship Specialty Start Date End Date Makayla Yepez MD [address] [place], [place] PCP - General Internal Medicine 01/23/23 documented as of this encounter
--- OUTSIDE RECORDS SUMMARY | 2024-06-22 06:30 | XMS_ITS | Encounter Summary ---
Author Organization [facility] Address [address] [facility] 7t [place] [address] Care Team Providers Care Claims Correspondence Clerk Name Role Phone Unavailable Primary Care Provider Unavailabl e Encounter Details Date Type Department Care Team (Latest Contact Info) Description 08/27/2020 Abstract [facility] CONVERSIONS Dental, Provider, DDS Social History Tobacco Use Types Packs/Day Years Used Date Smoking Tobacco: Never Assessed Sex and Gender Information Value Date Recorded Sex Assigned at Male 02/24/2022 10:19 AM EDT Legal Sex Male 10:19 AM EDT Gender Identity Male 02/24/2022 10:19 AM EDT Sexual Orientation Straight 02/24/2022 10 :19 AM EDT documented as of this encounter Plan of Treatment Upcoming Encounters Date Type Department Care Team (Late st Contact Info) Description 07/12/2024 7:45 AM EDT Office Visit [facility] ADULT DENTAL [address] [place] [address] Chelsea Flores [address] [place] [address] documented as of this encounter Visit Diagnoses Not on filedocumented in this encounter
--- OUTSIDE RECORDS SUMMARY | 2024-06-22 06:30 | XMS_ITS | Encounter Summary ---
Demographics Address [address] [facility] [address] [place] [address] Home Phone Preferred Language es Marital Status Unknown Rastafari Affiliation Unknown Race Unknown Ethnic Group Unknown Author Organization [facility] Address [address] [facility] [address] [place] [address] Phone Care Team Providers Care Welding Lead Burner Name Role Phone Makayla Yepez MD Primary Care Provider [phone] Encounter Details Date Type Department Care Team (Late st Contact Info) Description 06/10/2024 Orders Only [facility] [address] [place] [phone] Nirmal Gomez MD [address] [facility] [address] [place] [address] Proteinuria, not otherwise specified; Type 2 diabetes mellitus with diabetic chronic kidney disease (HCC); Hypertension Social History Tobacco Use Types Packs/Day Years [...] mellitus with diabetic chronic kidney disease (HCC) Hypertension documented in this encounter Care Teams Welding Lead Burner Relationship Specialty Start Date End Date Makayla Yepez MD [address] [place], [place] PCP - General Internal Medicine 01/23/23 documented as of this encounter
--- OUTSIDE RECORDS SUMMARY | 2024-06-22 06:30 | XMS_ITS | Encounter Summary ---
Author Organization [facility] Address [address] [facility] [address] 7[address] [place] [address] Care Team Providers Care Shoe Handler Name Role Phone Unavailable Primary Care Provider Unavailabl e Encounter Details Date Type Department Care Team (Latest Contact Info) Description 09/10/2021 Abstract [facility] CONVERSIONS Dental, Provider, DDS Social History Tobacco [...] Description 07/12/2024 7:45 AM EDT Office Visit [facility] ADULT DENTAL [address] [place] [address] Chelsea Flores [address] [place] [address] documented as of this encounter Visit Diagnoses Not on filedocumented in this encounter
--- OUTSIDE RECORDS SUMMARY | 2024-06-22 06:30 | XMS_ITS | Clinical Summary ---
Author Organization [facility] Address [address] [facility] 7t [place] [address] Care Team Providers Care Social Service Coordinator Name Role Phone Unavailable Primary Care Provider Unavailabl e Allergies No known active allergies Medications No known medications Active Problems Problem Noted Date Diagnosed Date Severe dental caries 09/04/2023 Proteinuria 01/22/2023 Essential hypertension 06/22/2017 Lumbago with sciatica 06/22/2017 Exotropia 07/14/2012 History of cholecystectomy 07/14/2012 Hypertension 09/19/2011 Morbid obesity 09/19/2011 Pure hypercholesterolemia 09/19/2011 Social History Tobacco Use Types Packs/Day Years Used Date Smoking Tobacco: Never Smokeless Tobacco: Never Tobacco Cessation:Counseling Given: Not Answered Sex and Gender Information Value Date Recorded Sex Assigned at Male 02/24/2022 10:19 AM EDT Legal Sex Male 10:19 AM EDT Gender Identity Male 02/24/2022 10:19 AM EDT Sexual Orientation Straight 02/24/2022 10 :19 AM EDT Last Filed Vital Signs Vital Sign Reading Time Taken Comments Blood Pressure 130/86 08/05/2023 8:01 AM EDT Pulse - - Temperature - - Respiratory Rate - - Oxygen Saturation - - Inhaled Oxygen Concentration - - Weight - - Height - - Body Mass Index - - Plan of Treatment Upcoming Encounters Date Type Department Care Team (Late st Contact Info) Description 07/12/2024 7:45 AM EDT Office Visit [facility] ADULT DENTAL [address] [place], [place] [phone] Chelsea Flores [address] [place], [place] [phone] Health Maintenance Due Date Last Done Comments Depression Screening 1981 HIV Screening 1981 Lipid Panel 1981 SDOH Screening 1981 Alcohol/Substance Use Screening 1993 Family Planning (PISQ) 1996 Hepatitis C Screening 08/20/1999 Hepatitis B Vaccines (1 of 3 - 19+ 3-dose series) 2000 COVID-19 Vaccine ( - 2023- season) 2023 03/13/2023, 04/23/2021, 09/05/2020, Additional history exists Dental Prophylaxis 02/05/2024 08/05/2023, 0 09/10/2021, 08/27/2020, Additional history exists Dental Oral Exam 02/12/2024 08/12/2023, , 08/27/2020, Additional history exists Dental X-Ray: Bitewings 08/05/2024 08/05/19, 10/13/2017, 11/08/2014, Additional history exists Tobacco Screening 08/11/2024 08/12/2023 Dental X-Ray: Full Mouth 09/11/2024 09/10/2021 DTaP/Tdap/Td Vaccines (4 - Td or Tdap) 06/22/2027 06/22/2017, 06/10/2017, 04/27/2001 Zoster Vaccines (1 of 2) 08/20/2031 RSV Patients and Patients Aged 60 years or older (1 - 1-dose 75+ series) 2056 Influenza Vaccine Completed 02/17/2024, , 03/19/2020, Additional history exists HIB Vaccines Aged Out No longer eligi ble based on patient's age to complete this topic HPV Vaccines Aged Out No longer eligi ble based on patient's age to complete this topic Hepatitis A Vaccines Aged Out No long er eligible based on patient's age to complete this topic IPV Vaccines Aged Out No longer eligi ble based on patient's age to complete this topic Meningococcal Vaccine Aged Out No usha dawood eligible based on patient's age to complete this topic Pneumococcal Vaccine: Pediatrics (0 to 5 Years) and At-Risk Patients (6 to 49) Years) Aged Out No longer eligible based on patient's age to complete this topic RSV under 20 months Aged Out No longe r eligible based on patient's age to complete this topic Rotavirus Vaccines Aged Out No longer eligible based on patient's age to complete this topic Procedures Procedure Name Priority Date/Time Associated Diagnosis Comments PERIODIC ORAL EVALUATION - ESTABLISHED PATIENT Routine 08/12/2023 2:30 PM EDT Encounter for dental examination Full PROPHYLAXIS - ADULT Routine 024 8:00 AM EDT Dental calculus Dental plaque BITEWINGS - 4 RADIOGRAPHIC IMAGES Routine 08/05/2023 8:00 AM EDT PANORAMIC RADIOGRAPHIC IMAGE Routine 09/10/2021 12:00 AM EDT from Last 3 Months or Most Recently Relevant to Health Maintenance Insurance [facility] MEDICAID STAND ADULT * Guarantor: Emir Allen Account Type Relation to Patient Date of Phone Billing Address Personal/Family Self [address] [place] [address] * Guarantor: Emir Allen Account Type Relation to Patient Date of Phone Billing Address Personal/Family Self [address] [place] [address] * Guarantor: Emir Allen Account Type Relation to Patient Date of Phone Billing Address Personal/Family Self [address] [place] [address] * Guarantor: Emri Allen Account Type Relation to Patient Date of Phone Billing Address Personal/Family Self [address] [place] [address]
[2024-06-22 07:52] LABS: Alanine Aminotransferase 15 U/L (0-40); Aspartate Amino Transferase 40 U/L (5-37); Cholesterol 225 mg/dL (<200); HDL Cholesterol 54 mg/dL (>40); LDL Cholesterol Calculated 150 mg/dL (<100); Triglycerides 106 mg/dL (<150)
== END 2024-06-22 06:28 | disposition home or self-care (01) ==
LOC: HO.LAB 06:27
PROVIDERS: PCP Internal Medicine; Visit Provider Nurse Practitioner Adult Health
DX: E78.00 Pure hypercholesterolemia, unspecified (principal); E11.9 Type 2 diabetes mellitus without complications
CPT/HCPCS: 36415; 80061; 82570; 84450; 84460; 97803

== ENCOUNTER 2024-06-22 10:46 | Outpatient (AMB) | payer OTHER, SELFPAY ==
[2024-06-22 10:51] VITALS: BMI 46.9
--- NOTE | 2024-06-22 10:51 | A.OFFVIS_ITS ---
VS Expanded 06/22/24 10:51 Height 5 ft 6 in Weight 290 lb 5.581 oz BMI 46.9 Intake Visit Reasons: t2dm Allergies dulaglutide [From [facility]] Allergy (Mild, Verified 02/17/24 13:54) Rash Nutrition Presentation Details: Pt presents for MNT f/u for T2DM Pt reports concerns of losing weight and looking fragile Will review gradual diet modifications and importance of including nutrient rich foods as well an keeping physically active Pt wearing glucose sensor BG at 109 (was 275 post pancake meal) BS Monitoring Most Recent Diabetes Results: Microalb/Creat Ratio 1079.9 ug/mg cr (<30) H 03/02/24 Cholesterol 225 mg/dL (<200) H 06/22/24 HDL Cholesterol 54 mg/dL (>40) 06/22/24 Triglycerides 106 mg/dL (<150) 06/22/24 Creatinine 0.81 mg/dL (0.5-1.4) 03/02/24 Blood Urea Nitrogen 10 mg/dL (9-16) 03/02/24 Sodium 138 mmol/L (135-145) 03/02/24 Potassium 3.8 mmol/L (3.3-5.1) 03/02/24 Chloride 101 mmol/L (96-108) 03/02/24 Carbon Dioxide 30 mmol/L (22-29) H 03/02/24 Calcium 9.0 mg/dL (8.4-10.2) 03/02/24 AST 40 U/L (5-37) H 06/22/24 ALT 15 U/L (0-40) 06/22/24 Total Protein 7.2 g/dL (6.5-8.0) 03/02/24 Albumin 3.8 g/dL (3.5-5.0) 03/02/24 [facility] Medical History (Updated 02/17/24 @ 17:42 by Makayla Cochran MD) Cellulitis of right leg Physical exam Right knee pain Left knee pain Hypovitaminosis D Super-super obese Gross hematuria COVID-19 Obesity Pure hypercholesterolemia Essential hypertension Surgical History History of ear surgery History of cholecystectomy Family History Father Hypertension Diabetes Mother Diabetes Hypertension Kidney failure Social History Housing: Apartment Alcohol intake: never Patient Tobacco Use Status: Never used Tobacco e-Cigarette/Vaping Use: Never Used Second Hand Smoke Exposure: No service: No Current occupational status: employed Current occupational exposures/hazards: No Cognitive needs: No Hearing needs: No Vision needs: Yes Assessment & Plan Assessment & Plan (1) T2DM (type 2 diabetes mellitus): Code(s): E11.9 - Type 2 diabetes mellitus without complications Category: Medical Qualifiers: Diabetes mellitus terminal gauger insulin use: with terminal gauger use Diabetes mellitus complication status: with hyperglycemia Qualified Code(s): E11.65 - Type 2 diabetes mellitus with hyperglycemia; Z79.4 - medical terminologist (current) use of insulin Plan: Work on low sodium, high fiber food options and reducing saturated fats- continue Wt: 136 Kg ( 11/2023 ), 02/17, 132 kg (05/21) Est kcal needs as per MSJ: 2600 (40% carb, 30% protein/fat) Est fluid needs as per 25-30 ml/d: 4000 Est prot per day as per 1 g/kg bw: 130 Recommend fiber intake : 8-10 g per day and gradually increase to 25-28 g per day for women and 35-38 g for men or as tolerated Recommend sodium intake per day : less than 1500 mg less than 2000 mg Educated patient on: ( R = reviewed V = verbalizes understanding N/R = needs review N/A = not applicable * Food sources of carbohydrate, adequate serving sizes and its role in various health conditions: R * Differences between complex carbohydrates a simple carbohydrates, role of fiber in diet: R * Lean protein sources of foods: R * Differences between types of fats and role in diet (mono on saturated fat fatty acids, saturated fatty acids, trans fats): R * Food sources of sodium in salt and healthy modifications for heart health in kidney health: R * Vitamins and minerals: R V N/R * Healthy plate method concept: R * Physical activity: Benefits a precaution: R * Hypoglycemia protocol (rule of 15): R V N/R * Dietary prevention of Hyperglycemia: R Patient Instructions: Continue working on choosing foods lower in fat (choose fish when eating out vs burger as example) Include fruit at meal time as a low sodium/high fiber foods Continue physically active and hydrated by choosing water /fruit/herb infused water Coding Level of Care Code Nutr Indiv Subseq (77101) Diagnoses Type 2 diabetes mellitus with hyperglycemia, with long-term current use of insulin E11.65; Z79.4 Diabetes mellitus terminal gauger insulin use: with alf use Diabetes mellitus complication status: with hyperglycemia Time Spent (min) 20
--- OUTSIDE RECORDS SUMMARY | 2024-06-22 13:22 | XMS_ITS | Encounter Summary ---
Author Organization [employer] [facility] Address [address] [facility] 7t [place] [address] Care Team Providers Care Consultant Rn Name Role Phone Unavailable Primary Care Provider Unavailabl e Encounter Details Date Type Department Care Team (Latest Contact Info) Description 09/10/2021 Abstract [facility] CONVERSIONS Dental, Provider, DDS Social History Tobacco [...] Description 07/12/2024 7:45 AM EDT Office Visit [facility] ADULT DENTAL [address] [place] [address] Chelsea Flores [address] [place] [address] documented as of this encounter Visit Diagnoses Not on filedocumented in this encounter
--- OUTSIDE RECORDS SUMMARY | 2024-06-22 13:22 | XMS_ITS | Encounter Summary ---
Author Organization [facility] [facility] Address [address] [facility] [address]t [place] [address] Care Team Providers Care Sales Person Name Role Phone Unavailable Primary Care Provider Unavailabl e Encounter Details Date Type Department Care Team (Latest Contact Info) Description 08/27/2020 Abstract [facility] CONVERSIONS Dental, Provider, DDS Social History Tobacco [...] Description 07/12/2024 7:45 AM EDT Office Visit [facility] ADULT DENTAL [address] [place] [address] Chelsea Flores [address] [place] [address] documented as of this encounter Visit Diagnoses Not on filedocumented in this encounter
--- OUTSIDE RECORDS SUMMARY | 2024-06-22 13:22 | XMS_ITS | Clinical Summary ---
Author Organization [facility] Address [address] [facility] [address]t [place] [address] Care Team Providers Care Working Supervisor Name Role Phone Unavailable Primary Care Provider [...] 07/12/2024 7:45 AM EDT Office Visit [facility] ADULT DENT[facility] [address] [place], [place] [phone] Chelsea Flores [address] [place], [place] [phone] Health Maintenance Due Date Last Done Comments [...] Most Recently Relevant to Health Maintenance Insurance [facility] MEDICAID STAND ADULT * Guarantor: Emir Allen Account Type Relation to Patient Date of Phone Billing Address Personal/Family Self [address] [place] [address] * Guarantor: Emir Allen Account Type Relation to Patient Date of Phone Billing Address Personal/Family Self [address] [place] [address] * Guarantor: Emir Allen Account Type Relation to Patient Date of Phone Billing Address Personal/Family Self [address] [place] [address] * Guarantor: Emir Allen Account Type Relation to Patient Date of Phone Billing Address Personal/Family Self [address] [place] [address]
--- OUTSIDE RECORDS SUMMARY | 2024-06-22 13:22 | XMS_ITS | Encounter Summary ---
Demographics Address [address] [facility] [address] [place] [address] Home Phone Preferred Language es Marital Status Unknown Restoration Affiliation Unknown Race Unknown Ethnic Group Unknown Author Organization [facility] Address [address] [facility] [address] [place] [address] Phone Care Team Providers Care Solder Making Laborer Name Role Phone Makayla Yepez MD Primary Care Provider [phone] Encounter Details Date Type Department Care Team (Late st Contact Info) Description 06/10/2024 Orders Only [facility] [address] [place] [address] Nirmal Gomez MD [address] [facility] [address] [place] [address] Proteinuria, not otherwise specified; Type [...] Hypertension documented in this encounter Care Teams Solder Making Laborer Relationship Specialty Start Date End Date Makayla Yepez MD [address] [place], [place] PCP - General Internal Medicine 01/23/23 documented as of this encounter
--- OUTSIDE RECORDS SUMMARY | 2024-06-22 13:22 | XMS_ITS | Clinical Summary ---
Author Organization [facility] Address [address] [facility] [address] [place] [address] Phone Care Team Providers Care Lightning Protection Installer Name Role Phone Makayla Yepez MD Primary Care Provider [phone] Allergies No known active allergies Medications metFORMIN (GLUCOPHAGE) 850 MG tablet Take 850 mg by mouth in the morning and 850 mg in the evening. 3 Active lisinopril 40 MG tablet Take 40 mg by mouth 1 (one) time each day 3 Active hydroCHLOROthi azide 25 MG tablet Take 1 tablet by mouth 1 (one) time each day 5 Active hydrALAZINE 25 MG tablet Take 25 mg by mouth in the morning and 25 mg at noon and 25 mg in the evening. 3 Active ezetimibe (ZETIA) 10 MG tablet Take 10 mg by mouth 1 (one) time each day 3 Active D3 Super Strength 50 MCG (1999 UT) capsule Take 1 tablet by mouth 1 (one) time each day 3 Active atorvastatin (Lipitor) 80 MG tablet Take 1 tablet by mouth 1 (one) time each day Active amLODIPine (Norvasc) 5 MG tablet 10 mg 7 Active Farxiga 5 MG tablet Take 10 mg by mouth 1 (one) time each day 90 tablet 3 4 Active Ozempic, 0.25 or 0.5 MG/DOSE, 2 MG/3ML solution pen-injector INJECT 0.5mg SUBCUTANEOUSLY EVERY WEEK 4 Active spironolactone (Aldactone) 50 MG tablet Take 1 tablet (50 mg total) by mouth 1 (one) time each day 30 tablet 11 4 025 Active Active Problems Problem Noted Date Diagnosed Date Proteinuria 01/22/2023 01/22/2023 Encounters Date Type Department Care Team Description 06/10/2024 Orders Only [facility] [address] [place] [address] Nirmal Gomez MD Proteinuria, not otherwise specified; Type 2 diabetes mellitus with diabetic chronic kidney disease (HCC); Hypertension 06/03/2024 Orders Only [facility] [address] [place] [address] Nirmal Gomez MD Proteinuria, not otherwise specified; Type 2 diabetes mellitus with diabetic chronic kidney disease (HCC) 05/13/2024 Orders Only [facility] [address] [place] [address] Nirmal Gomez MD Proteinuria, not otherwise specified; Type 2 diabetes mellitus with diabetic chronic kidney disease (HCC); Hypertension 04/15/2024 Orders Only [facility] [address] [place] [address] Nirmal Gomez MD Proteinuria, not otherwise specified; Type 2 diabetes mellitus with diabetic chronic kidney disease (HCC); Hypertension from Last 3 Months Family History Medical History Relation Comments Kidney disease Father Kidney disease Mother Relation Status Comments Father Mother Social History Tobacco Use Types Packs/Day Years Used Date Smoking Tobacco: Never Alcohol Use Standard Drinks/Week Comments No 0 (1 standard drink = 0.6 oz pur e alcohol) Sex and Gender Information Value Date Recorded Sex Assigned at Not on file Legal Sex Male 5:05 PM EST Gender Identity Not on file Sexual Orientation Not on file Last Filed Vital Signs Vital Sign Reading Time Taken Comments Blood Pressure 140/100 03/03/2024 1:12 PM EST Pulse 78 03/03/2024 1:12 PM EST Temperature - - Respiratory Rate - - Oxygen Saturation 98% 03/03/2024 1:12 PM EST Inhaled Oxygen Concentration - - Weight 136 kg (300 lb 1.3 oz) 03/03/2024 1:12 PM EST Height - - Body Mass Index - - Plan of Treatment Health Maintenance Due Date Last Done Comments Pneumococcal Vaccine: Pediat rics (0 to 5 Years) and At-Risk Patients (6 to 64 Years) (1 of 2 - PCV) 08/20/1987 Hepatitis B Vaccine (1 of 3 - 19+ 3-dose series) 08/19 Diabetes: Hemoglobin A1C 06/11/2023 Diabetes: Ophthalmology Exam 06/11/2023 Diabetes: Pedal Pulse Checked 06/11/2023 Diabetes: Sensory Foot Exam 06/11/2023 Diabetes: Visual Foot Exam 06/11/2023 Influenza Vaccine (#1) 2023 Insurance [facility] MEDICAID [facility] MEDICAID Care Teams Lightning Protection Installer Relationship Specialty Start Date End Date Makayla Yepez MD [address] [place], [place] PCP - General Internal Medicine 01/23/23
--- OUTSIDE RECORDS SUMMARY | 2024-06-22 13:22 | XMS_ITS | Encounter Summary ---
Author Organization [facility] Address [address] [facility] [address] [place] [address] Phone Care Team Providers Care Telephony Engineer Name Role Phone Makayla Yepez MD Primary Care Provider [phone] Encounter Details Date Type Department Care Team (Late st Contact Info) Description 06/03/2024 Orders Only [facility] [address] [place] [id number] Nirmal Gomez MD [address] [facility] [address] [place] [address] Proteinuria, not otherwise specified; Type [...] (HCC) documented in this encounter Care Teams Telephony Engineer Relationship Specialty Start Date End Date Makayla Yepez MD [address] [place], [place] PCP - General Internal Medicine 01/23/23 documented as of this encounter
== END 2024-06-22 11:24 | disposition home or self-care (01) ==
PROVIDERS: PCP Internal Medicine; Visit Provider Dietitian, Registered
DX: E11.65 Type 2 diabetes mellitus with hyperglycemia (principal); Z79.4 Long term (current) use of insulin

== ENCOUNTER 2024-07-29 12:32 | Outpatient (AMB) | payer OTHER, SELFPAY ==
--- NOTE | 2024-07-29 12:36 | A.OFFVIS_ITS ---
Vital Signs 07/29/24 12:38 Height 5 ft 6 in Weight 290 lb 3.437 oz BMI 46.8 BP 130/82 Blood Pressure Location Rt brachial Position Sitting Pulse 117 H Pulse Source Pulse Oximeter Pulse Oximetry (%) 95 Oxygen Delivery Method Room Air Intake Visit Reasons: T2DM Intake Note: Patient presents today for a follow-up on Type 2 Diabetes Mellitus: Last Diabetic eye exam was on: DUE Last Podiatry exam was on: Patient does not see a Continuous Process Coffee Roaster Most recent HbA1c: 6.6%, 07/29/2024 Random Glucose- 153 mg/dL, Today Registered Sales Assistant Required: Yes Registered Sales Assistant Language: Lithuanian Accompanied by: Self / Same As Patient Allergies dulaglutide [From [facility]] Allergy (Mild, Verified 02/17/24 13:54) Rash [facility] Medical History (Updated 02/17/24 @ 17:42 by Makayla Cochran MD) Cellulitis of right leg Physical exam Right knee pain Left knee pain Hypovitaminosis D Super-super obese Gross hematuria COVID-19 Obesity Pure hypercholesterolemia Essential hypertension Surgical History History of ear surgery History of cholecystectomy Family History Father Hypertension Diabetes Mother Diabetes Hypertension Kidney failure Social History Housing: Apartment Alcohol intake: never Patient Tobacco Use Status: Never used Tobacco e-Cigarette/Vaping Use: Never Used Second Hand Smoke Exposure: No service: No Current occupational status: employed Current occupational exposures/hazards: No Cognitive needs: No Hearing needs: No Vision needs: Yes Physical Exam Vital Signs: Last Vital Signs Pulse 117 H 07/29/24 12:38 BP 130/82 07/29/24 12:38 Pulse Ox 95 07/29/24 12:38 Oxygen Delivery Method Room Air 07/29/24 12:38 BMI result Body Mass Index 46.8 Results AMB Hemoglobin A1c AMB Hemoglobin A1c 6.6 % Last Edit by MANN Jarrett on 07/29/24 12:52 Assessment & Plan Assessment & Plan Orders: Orders AMB Hemoglobin A1c Today E11.65 - Type 2 diabetes mellitus with hyperglycemia, Z79.4 - intermediate project manager (current) use of insulin Coding
[2024-07-29 12:38] VITALS: BP 130/82; PULSE 117; O2SAT 95; BMI 46.8
[2024-07-29 12:46] LABS: Glucose, Whole Blood 153 mg/dL (60-115)
--- OUTSIDE RECORDS SUMMARY | 2024-07-29 14:24 | XMS_ITS | Clinical Summary ---
Demographics Address [address] [facility] [address] [place] [address] Home Phone Preferred Language es Marital Status Unknown Christianity Affiliation Unknown Race Unknown Ethnic Group Unknown Author Organization [facility] Address [address] [facility] [address] [place] [address] Phone Care Team Providers Care Mold Filler Name Role Phone Makayla Yepez MD Primary Care Provider [phone] Allergies No known active allergies Medications metFORMIN (GLUCOPHAGE) 850 MG tablet Take 850 mg by mouth in the morning and 850 mg in the evening. 01/14/20 23 Active lisinopril 40 MG tablet Take 40 mg by mouth 1 (one) time each day 10/31/19 23 Active hydroCHLOROthi azide 25 MG tablet Take 1 tablet by mouth 1 (one) time each day 02/20/20 15 Active hydrALAZINE 25 MG tablet Take 25 mg by mouth in the morning and 25 mg at noon and 25 mg in the evening. 10/23/19 23 Active ezetimibe (ZETIA) 10 MG tablet Take 10 mg by mouth 1 (one) time each day 01/14/20 23 Active D3 Super Strength 50 MCG (1999 UT) capsule Take 1 tablet by mouth 1 (one) time each day 10/23/19 23 Active atorvastatin (Lipitor) 80 MG tablet Take 1 tablet by mouth 1 (one) time each day Active amLODIPine (Norvasc) 5 MG tablet 10 mg 10/24/19 17 Active Ozempic, 0.25 or 0.5 MG/DOSE, 2 MG/3ML solution pen-injector INJECT 0.5mg SUBCUTANEOUSLY EVERY WEEK 07/10/19 24 Active spironolactone (Aldactone) 50 MG tablet Take 1 tablet (50 mg total) by mouth 1 (one) time each day 30 tablet 11 03/03/20 24 025 Active Farxiga 5 MG tablet Take 10 mg by mouth 1 (one) time each day 90 tablet 3 07/06/19 25 026 Active Farxiga 5 MG tablet Take 10 mg by mouth 1 (one) time each day 90 tablet 3 06/11/19 24 025 Discontin ued(Reord er (does not appear on AVS)) Active Problems Problem Noted Date Diagnosed Date Proteinuria 01/22/2023 01/22/2023 Encounters Date Type Department Care Team Description 07/08/2024 Orders Only [facility] [address] [place] [phone] Nirmal Gomez MD Proteinuria, not otherwise specified; Type 2 diabetes mellitus with diabetic chronic kidney disease (HCC); Hypertension 07/07/2024 Office Communication [facility] [address] [address] Niraml Gomez MD 07/05/2024 Refill [facility] [address] [address] Miracle Gonzalez [place] 06/10/2024 Orders Only [facility] [address] [place] [phone] Nirmal Gomez MD Proteinuria, not otherwise specified; Type 2 diabetes mellitus with diabetic chronic kidney disease (HCC); Hypertension 06/03/2024 Orders Only [facility] [address] [place] [phone] Nirmal Gomez MD Proteinuria, not otherwise specified; Type 2 diabetes mellitus with diabetic chronic kidney disease (HCC) 05/13/2024 Orders Only [facility] [address] [place] [phone] Nirmal Gomez MD Proteinuria, not otherwise specified; [...] Exam 06/11/2023 Influenza Vaccine (#1) 2023 Insurance [facility] MEDICAID [facility] MEDICAID Care Teams Mold Filler Relationship Specialty Start Date End Date Makayla Yepez MD [address] [place], [place] PCP - General Internal Medicine 01/23/23
--- OUTSIDE RECORDS SUMMARY | 2024-07-29 14:25 | XMS_ITS | Encounter Summary ---
Author Organization [facility] Address [address] [facility] 7[address] [place] [address] Care Team Providers Care Roof Fixer Name Role Phone Unavailable Primary Care Provider Unavailabl e Encounter Details Date Type Department Care Team (Latest Contact Info) Description 08/27/2020 Abstract [facility] CONVERSIONS Dental, Provider, DDS Social History Tobacco [...] Care Team (Late st Contact Info) Description 08/24/2024 10:30 AM EDT Office Visit [facility] [address] [place] [address] Robert Ballard DDS [address] [place] [address] 01/18/2025 10:00 AM EDT Office Visit [facility] [address] [place] [address] Sylvia Whiting documented as of this encounter Visit Diagnoses Not on filedocumented in this encounter
--- OUTSIDE RECORDS SUMMARY | 2024-07-29 14:25 | XMS_ITS | Encounter Summary ---
Author Organization [facility] Address [address] [facility] 7t [place] [address] Care Team Providers Care Hardwood Floor Installer Name Role Phone Unavailable Primary Care Provider Unavailabl e Encounter Details Date Type Department Care Team (Latest Contact Info) Description 09/10/2021 Abstract [facility] Dental, Provider, DDS Social History Tobacco [...] Description 08/24/2024 10:30 AM EDT Office Visit [facility] [address] [place] [address] Robert Ballard DDS [address] [place] [address] 01/18/2025 10:00 AM EDT Office Visit [facility] [address] [place] [address] Sylvia Whiitng documented as of this encounter Visit Diagnoses Not on filedocumented in this encounter
--- OUTSIDE RECORDS SUMMARY | 2024-07-29 14:25 | XMS_ITS | Clinical Summary ---
Author Organization [facility] Address [address] [facility] [address] 7[address] [place] [address] Care Team Providers Care Burrer Hand Name Role Phone Unavailable Primary Care Provider Unavailabl e Allergies No known active allergies Medications amoxicillin (Amoxil) 500 MG capsule Take 1 capsule (500 mg) by mouth every 8 (eight) hours for 7 days. 21 capsule 5 07/20/19 acetaminophen (Tylenol 8 Hour) 650 MG ER tablet Take 1 tablet (650 mg) by mouth every 8 (eight) hours if needed for moderate pain for up to 10 days. Do not crush, chew, or split. 15 tablet 5 07/23/19 25 Active Problems Problem Noted Date Diagnosed Date Severe dental caries 09/04/2023 Proteinuria 01/22/2023 Essential hypertension 06/22/2017 Lumbago with sciatica 06/22/2017 Exotropia 07/14/2012 History of cholecystectomy 07/14/2012 Hypertension 09/19/2011 Morbid obesity 09/19/2011 Pure hypercholesterolemia 09/19/2011 Encounters Date Type Department Care Team Description 07/12/2024 7:45 AM EDT Office Visit [facility] [address] [place] [address] Chelsea Flores Encounter for dental examination (Primary Dx); Dental caries; Periodontal disease; Dental abscess from Last 3 Months Social History Tobacco Use Types Packs/Day Years [...] Sign Reading Time Taken Comments Blood Pressure 134/76 07/12/2024 7:49 AM EDT Pulse - - Temperature - - Respiratory Rate - - Oxygen Saturation - - Inhaled Oxygen Concentration - - Weight - - Height - - Body Mass Index - - Plan of Treatment Upcoming Encounters Date Type Department Care Team (Late st Contact Info) Description 08/24/2024 10:30 AM EDT Office Visit [facility] [address] [place] [address] Robert Ballard, DDS [address] [place] [address] 01/18/2025 10:00 AM EDT Office Visit [facility] [address] [place] [address] Sylvia Whiting Health Maintenance Due Date Last Done Comments Depression Screening 1981 HIV Screening 1981 Lipid Panel 1981 SDOH Screening 1981 Alcohol/Substance Use Screening 1993 Family Planning (PISQ) 1996 Hepatitis C Screening 08/20/1999 Hepatitis B Vaccines (1 of 3 - 19+ 3-dose series) 2000 COVID-19 Vaccine ( season) 2023 03/13/2023, 04/23/2021, 09/05/2020, Additional history exists Dental X-Ray: Full Mouth 09/11/2024 09/10/2021 Dental Oral Exam 01/13/2025 07/12/2024, , 09/10/2021, Additional history exists Dental Prophylaxis 01/13/2025 07/12/2024, 0 08/05/2023, 09/10/2021, Additional history exists Tobacco Screening 07/12/2025 07/12/2024 Dental X-Ray: Bitewings 07/13/2025 07/13/19, 08/05/2023, 10/13/2017, Additional history exists DTaP/Tdap/Td Vaccines (4 - Td or Tdap) [...] PERIODIC ORAL EVALUATION - ESTABLISHED PATIENT Routine 07/12/2024 7:45 AM EDT Encounter for dental examination Dental caries Periodontal disease Dental abscess INTRAORAL - PERIAPICAL EACH ADDITIONAL RADIOGRAPHIC IMAGE Routine 07/12/2024 7:45 AM EDT INTRAORAL - PERIAPICAL EACH ADDITIONAL RADIOGRAPHIC IMAGE Routine 07/12/2024 7:45 AM EDT INTRAORAL - PERIAPICAL FIRST RADIOGRAPHIC IMAGE Routine 07/12/2024 7:45 AM EDT BITEWINGS - 4 RADIOGRAPHIC IMAGES Routine 07/12/2024 7:45 AM EDT ORAL HYGIENE INSTRUCTIONS Routine 07/12/2024 7:45 AM EDT PROPHYLAXIS - ADULT Routine 07/12/2024 7 :45 AM EDT PANORAMIC RADIOGRAPHIC IMAGE Routine 09/10/2021 12:00 AM EDT from Last 3 Months or Most Recently Relevant to Health Maintenance Insurance [facility] MEDICAID STAND ADULT * Guarantor: Emir Allen Account Type Relation to Patient Date of Phone Billing Address Personal/Family Self [address] [place] [address] * Guarantor: Emir Allen Account Type Relation to Patient Date of Phone Billing Address Personal/Family Self [address] [place] [address] * Guarantor: Emir Allen Account Type Relation to Patient Date of Phone Billing Address Personal/Family Self [address] [place] [address] * Guarantor: Emir Allen Account Type Relation to Patient Date of Phone Billing Address Personal/Family Self [address] [place] [address]
== END 2024-07-29 13:08 | disposition home or self-care (01) ==
LOC: HO.ENCR 12:33
PROVIDERS: PCP Internal Medicine; Visit Provider Nurse Practitioner Adult Health
DX: E11.65 Type 2 diabetes mellitus with hyperglycemia (principal); Z79.4 Long term (current) use of insulin

== ENCOUNTER → 2024-07-29 12:32 | Outpatient (BNVA) | payer OTHER, SELFPAY | PROVIDERS: PCP Internal Medicine; Visit Provider Nurse Practitioner Adult Health | DX: E11.65 Type 2 diabetes mellitus with hyperglycemia (principal); Z79.4 Long term (current) use of insulin | CPT/HCPCS: 82947; 83036; 99212 ==

== ENCOUNTER 2024-11-02 13:18 | Outpatient (AMB) | payer OTHER, SELFPAY ==
--- NOTE | 2024-11-02 13:20 | MHC.PC.OV ---
Vital Signs 11/02/24 13:22 Height 5 ft 6 in Weight 291 lb BMI 47.0 BP 128/86 Blood Pressure Location Lt brachial Position Sitting Intake Visit Reasons: DM Intake Note: Patient here for a follow up DM Home Mortgage Disclosure Act Specialist Required: No Accompanied by: Self / Same As Patient Allergies dulaglutide (From [facility]) Allergy (Mild, Verified 11/02/24 13:36) Rash Medication List - Last Reconciled 11/02/24 by Makayla Cochran MD amlodipine 10 mg PO DAILY 90 days blood sugar diagnostic (FreeStyle Lite Strips) Use 1 test strip once a day blood-glucose meter (FreeStyle Lite Meter kit) As directed blood-glucose sensor (FreeStyle Vickey 3 Sensor device) As directed blood-glucose,health unit supervisor,cont (FreeStyle Vickey 3 [place]) As directed cholecalciferol (vitamin D3) 50 mcg PO DAILY 90 days dapagliflozin propanediol (Farxiga) 5 mg PO DAILY ergocalciferol (vitamin D2) 1,250 mcg PO QWEEK 2 months ezetimibe 10 mg PO DAILY flash glucose sensor (FreeStyle Vickey 2 Sensor kit) As directed change every 14 days hydralazine 50 mg PO TID 90 days insulin glargine (Lantus Solostar U-100 Insulin) 30 units (0.3 mL) subcut DAILY lancets (FreeStyle Lancets) Use 1 lancet once a day lisinopril 40 mg PO DAILY 90 days metformin 850 mg PO BID 90 days pen needle, diabetic (Comfort EZ Pen [place]) As directed injects once a day rosuvastatin 20 mg PO DAILY 90 days semaglutide (Ozempic) 2 mg (0.75 mL) subcut QWEEK 30 days Tobacco use date assessed: 11/02/24 Dental Screening Dental Screen Date: 11/02/24 Did you have a dental visit in the last 12 months?: Yes Did you have a dental problem in the last 6 months where you did not have access to dental care?: No Was dental information given to patient?: Patient has dentist HPI HPI Comments History of Present Illness Details This is a 41-year-old male with diabetes mellitus type 2, hypertension, pure hypercholesterolemia and morbid obesity that comes today for follow-up on his conditions. A1c of 6.9% today and he follows with endocrinology. Blood pressure stable. Lipid panel will be order and his LDL goal should be less than 70. He is morbidly obese with a BMI of 47 and has been losing weight secondary to Ozempic. No chest pain or shortness on breath. [facility] Medical History Cellulitis of right leg Physical exam Right knee pain Left knee pain Hypovitaminosis D Super-super obese Gross hematuria COVID-19 Obesity Pure hypercholesterolemia Essential hypertension Surgical History History of ear surgery History of cholecystectomy Family History Father Hypertension Diabetes Mother Diabetes Hypertension Kidney failure Social History Housing: Apartment Alcohol intake: never Patient Tobacco Use Status: Never used Tobacco e-Cigarette/Vaping Use: Never Used Second Hand Smoke Exposure: No service: No Current occupational status: employed Current occupational exposures/hazards: No Cognitive needs: No Hearing needs: No Vision needs: Yes Questionnaire PHQ-9 Over the last 2 weeks, how often have you been bothered by any of the following problems? 1. Little interest or pleasure in doing things: not at all 2. Feeling down, depressed, or hopeless: not at all 3. Trouble falling or staying asleep, or sleeping too much: not at all 4. Feeling tired or having little energy: not at all 5. Poor appetite or overeating: not at all 6. Feeling bad about yourself - or that you are a failure or have let yourself or your family down: not at all 7. Trouble concentrating on things, such as reading the newspaper or watching television: not at all 8. Moving or speaking so slowly that other people could have noticed. Or the opposite - being so fidgety or restless that you have been moving around a lot more than usual: not at all 9. Thoughts that you would be better off or of hurting yourself in some way: not at all Total score: 0 Depression Screening Interpretation: Negative Depression Screening Done: Yes 88026 - PHQ-9 Billing: Yes Source: Developed by Drs. Kannan L. Yaritza, Samuel Barnes and colleagues, with an educational dorinda from [employer]. Thrive Questionnaire Date Thrive assessed: 11/02/24 I am a: Patient What is your living situation today?: I have a steady place to live Within the past 12 months, did the food you bought not last and you didn't have the money to get more?: I choose not to answer this question Within the past 12 months, did you worry whether your food would run out before you got money to buy more?: I choose not to answer this question Do you have trouble paying for medicines?: No Do you have trouble getting transportation to medical appointments?: No Do you have trouble paying your heating and electricity bill?: No Do you have trouble taking care of your child, family member or friend?: No Do you have trouble with day-to-day activities such as bathing, preparing meals, shopping, managing finances, etc.?: No Are you currently unemployed and looking for a job?: No Are you interested in more education?: No Please select the resources that you would like help with: None Currently or been in a relationship where the following occur: I choose not to answer THRIVE Score: 0 AUDIT C Alcohol Use Questionnaire (AUDIT-C) 1. How often do you have a drink containing alcohol?: Never Total Score: 0 Score Reviewed/Action Taken: No YAEL-7 AMB Questionnaire YAEL-7 Date YAEL - 7 assessed: 11/02/24 Feeling nervous, anxious, or on edge: 0 = Not at all Not being able to stop or control worryin = Not at all Worrying too much about different things: 0 = Not at all Trouble relaxin = Not at all Being so restless that it is hard to sit still: 0 = Not at all Becoming easily annoyed or irritable: 0 = Not at all Feeling afraid as if something awful might happen: 0 = Not at all Total YAEL-7 score (0-4 normal; 5-9 mild; 10-14 moderate; 15-21 severe): 0 Source: Developed by Drs. Kannan Vigil, Samuel Barnes and colleagues, with an educational dorinda from [employer]. YAEL-7 Assessment Billing YAEL-7 Assessment Tool: YAEL-7 Assessment 61927 Review of Systems Const All systems reviewed & are unremarkable except as noted in HPI and below Card Denies chest pain at rest, Denies chest pain with activity, Denies edema, Denies irregular heart rhythm, Denies claudication, Denies dyspnea, Denies dyspnea on exertion, Denies orthopnea, Denies paroxysmal nocturnal dyspnea and Denies slow heart rate Resp Denies cough, Denies dyspnea and Denies dyspnea on exertion Musc Denies atrophy, Denies deformity and Denies limited range of motion Skin/Breast Denies bleeding lesions, Denies changing lesions and Denies rash Physical exam (Primary Care) Vital Signs: Last Vital Signs BP 128/86 11/02/24 13:22 BMI result Body Mass Index 47.0 BMI Assessment/Plan discussion: High BMI High, discussed plan: lifestyle, weight reduction, dietary and physical activity Tobacco/Smoking Status: Tobacco use Status Tobacco use date assessed 11/02/24 11/02/24 13:31 Patient Tobacco Use Status Never used Tobacco 11/02/24 13:20 e-Cigarette/Vaping Use Never Used 11/02/24 13:20 PHQ-9: PHQ-9 Score PHQ-9: Total score 0 11/02/24 13:31 Depression Screening Interpretation: Negative Thrive Assessment: Date of Thrive Assessment Date Thrive assessed 11/02/24 11/02/24 13:31 Currently or been in a relationship where the following occur: I choose not to answer Resp Effort & Inspection: normal respiratory effort Auscultation: clear to auscultation bilaterally Cardio Jugular venous distension: no JVD Rate: regular rate Rhythm: regular rhythm Heart sounds: S1 normal heart sound present and S2 normal heart sound present Extrem General: Yes full ROM Results AMB Hemoglobin A1c AMB Hemoglobin A1c 6.9 % Last Edit by MANN Montero on 11/02/24 13:36 Coding Level of Care Code Est Pt Level 4 (07676) Complex EM visit Add On G2211 Diagnoses Essential hypertension I10 Pure hypercholesterolemia E78.00 Type 2 diabetes mellitus with hyperglycemia, with long-term current use of insulin E11.65; Z79.4 Diabetes mellitus correction insulin use: with correction use Diabetes mellitus complication status: with hyperglycemia Morbid obesity with BMI of 45.0-49.9, adult E66.01; Z68.42 Additional Codes PHQ-9 - 44336 - PHQ-9 Billing: Yes ([id number]) YAEL-7 Assessment Billing - YAEL-7 Assessment Tool: YAEL-7 Assessment 40710 ([id number]) Time Spent (min) 22 Assessment & Plan Assessment & Plan (1) Essential hypertension: Code(s): I10 - Essential (primary) hypertension Category: Medical (2) Pure hypercholesterolemia: Code(s): E78.00 - Pure hypercholesterolemia, unspecified Category: Medical (3) T2DM (type 2 diabetes mellitus): Code(s): E11.9 - Type 2 diabetes mellitus without complications Category: Medical Qualifiers: Diabetes mellitus remote computer terminal operator insulin use: with correction use Diabetes mellitus complication status: with hyperglycemia Qualified Code(s): E11.65 - Type 2 diabetes mellitus with hyperglycemia; Z79.4 - retirement (current) use of insulin (4) Morbid obesity with BMI of 45.0-49.9, adult: Code(s): E66.01 - Morbid (severe) obesity due to excess calories; Z68.42 - Body mass index [BMI] 45.0-49.9, adult Category: Medical Plan Continue current meds. Diabetic eye exam yearly. Follow-up with endocrinology. Continue diet and exercise to reach BMI goal less than 30. Blood pressure goal is equal or less than 130/80. LDL goal is less than 70. Orders: Orders AMB Hemoglobin A1c Today E11.9 - Type 2 diabetes mellitus without complications Lipid Panel Today E78.5 - Hyperlipidemia, unspecified Vitamin B12 and Folate Today E53.8 - Deficiency of other specified B group vitamins PSA,Total (Free>4and<10) Today R35.1 - Nocturia Microalbumin, Random (w Creat) Today R80.9 - Proteinuria, unspecified Vitamin D 25-OH Total Today E55.9 - Vitamin D deficiency, unspecified Comprehensive Street. Panel Fast Today E11.65 - Type 2 diabetes mellitus with hyperglycemia, Z79.4 - retirement (current) use of insulin
[2024-11-02 13:22] VITALS: BP 128/86; BMI 47.0
--- OUTSIDE RECORDS SUMMARY | 2024-11-02 14:08 | XMS_ITS | Clinical Summary ---
Author Organization [email or web address] Address [address] [place] [address] Care Team Providers Care Patternmaker Helper Name Role Phone Unavailable Primary Care Provider Unavailabl e Allergies No known active allergies Medications lisinopril 40 MG tablet Take 40 mg by mouth Once per day. Active hydroCHLOROthiaz lisette (HYDRODiuril) 25 MG tablet Take 25 mg by mouth Once per day. Active Active Problems Problem Noted Date Diagnosed Date Dental caries extending into pulp 09/04/2023 Proteinuria 01/22/2023 Essential hypertension 06/22/2017 Lumbago with sciatica 06/22/2017 Exotropia 07/14/2012 History of cholecystectomy 07/14/2012 Hypertension 09/19/2011 Morbid obesity 09/19/2011 Pure hypercholesterolemia 09/19/2011 Encounters Date Type Department Care Team Description 08/24/2024 10:30 AM EDT Office Visit [facility] [address] [place] [address] Robert Ballard DDS Dental caries extending into pulp (Primary Dx) from Last 3 Months Social History Tobacco [...] Reading Time Taken Comments Blood Pressure 134/76 08/24/2024 10:21 AM EDT Pulse 70 08/24/2024 10:21 AM EDT Temperature - - Respiratory Rate - - Oxygen Saturation - - Inhaled Oxygen Concentration - - Weight - - Height - - Body Mass Index - - Plan of Treatment Upcoming Encounters Date Type Department Care Team (Late st Contact Info) Description 01/18/2025 10:00 AM EDT Office Visit [facility] [address] [place] [address] Sylvia Whiting Health Maintenance Due Date Last Done Comments Depression Screening 1981 HIV Screening 1981 Lipid Panel 1981 SDOH Screening 1981 Disability Screening 1981 Alcohol/Substance Use Screening 1993 Family Planning (PISQ) 1996 Hepatitis C Screening 08/20/1999 Hepatitis B Vaccines (1 of 3 - 19+ 3-dose series) 2000 COVID-19 Vaccine ( season) 2023 03/13/2023, 04/23/2021, 09/05/2020, Additional history exists Dental X-Ray: Full Mouth 09/11/2024 09/10/2021 Influenza Vaccine (#1) 2024 , 04/04/2022, 03/19/2020, Additional history exists Dental Oral Exam 01/13/2025 07/12/2024, , 09/10/2021, Additional history exists Dental Prophylaxis 01/13/2025 07/12/2024, 0 08/05/2023, 09/10/2021, Additional history exists Dental X-Ray: Bitewings 07/13/2025 07/13/19, 08/05/2023, 10/13/2017, Additional history exists Tobacco Screening 08/24/2025 08/24/2024 DTaP/Tdap/Td Vaccines (4 - Td or Tdap) 06/22/2027 06/22/2017, 06/10/2017, 04/27/2001 Zoster Vaccines (1 of 2) 08/20/2031 RSV Patients and Patients Aged 60 years or older (1 - 1-dose 75+ series) 2056 HIB Vaccines Aged Out No longer eligi [...] patient's age to complete this topic Meningococcal B Vaccine Aged Out No l onger eligible based on patient's age to complete this topic Meningococcal Vaccine Aged Out No usha dawood eligible based on patient's age to complete this topic Pneumococcal Vaccine: Pediatrics (0 to 5 Years) and At-Risk Patients (6 to 49) Years Aged Out No longer eligible based on patient's age to complete this topic RSV under 20 months Aged Out No longe r eligible based on patient's age to complete this topic Rotavirus Vaccines Aged Out No longer eligible based on patient's age to complete this topic Procedures Procedure Name Priority Date/Time Associated Diagnosis Comments CASE PRESENTATION, DETAILED AND EXTENSIVE TREATMENT PLANNING Routine 08/24/2024 10:30 AM EDT 15 EXTRACTION, ERUPTED TOOTH OR EXPOSED ROOT (ELEVATION/FORCEPS REMOVAL) Routine 08/24/2024 10:30 AM EDT PROPHYLAXIS - ADULT Routine 07/12/2024 7 :45 AM EDT BITEWINGS - 4 RADIOGRAPHIC IMAGES Routine 07/12/2024 7:45 AM EDT PERIODIC ORAL EVALUATION - ESTABLISHED PATIENT Routine 07/12/2024 7:45 AM EDT Encounter for dental examination Dental caries Periodontal disease Dental abscess PANORAMIC RADIOGRAPHIC IMAGE Routine 09/10/2021 12:00 AM EDT from Last 3 Months or Most Recently Relevant to Health Maintenance Insurance [facility] MEDICAID STAND ADULT * Guarantor: Emir Allen Account Type Relation to Patient Date of Phone Billing Address Personal/Family Self [address] [place] [address] * Guarantor: Emir Allen Account Type Relation to Patient Date of Phone Billing Address Personal/Family Self [address] [place] [address] * Guarantor: Emir Allen Account Type Relation to Patient Date of Phone Billing Address Personal/Family Self [address] [place] [address]
--- OUTSIDE RECORDS SUMMARY | 2024-11-02 14:08 | XMS_ITS | Clinical Summary ---
Demographics Address [address] [place] [address] Home Phone Preferred Language es Marital Status Unknown Islam Affiliation Unknown Race Unknown Ethnic Group Unknown Author Organization [facility] Address [address] [place] [address] Phone Care Team Providers Care Stockbroker Name Role Phone Makayla Yepez MD Primary Care Provider [phone] Allergies No known active allergies Medications metFORMIN [...] 3 Active D3 Super Strength 50 MCG (1999) capsule Take 1 tablet by mouth 1 (one) time each day 3 Active atorvastatin (Lipitor) 80 MG tablet Take 1 tablet by mouth 1 (one) time each day Active amLODIPine (Norvasc) 5 MG tablet 10 mg 7 Active Ozempic, 0.25 or 0.5 MG/DOSE, 2 MG/3ML solution pen-injector INJECT 0.5mg SUBCUTANEOUSLY EVERY WEEK 4 Active spironolactone (Aldactone) 50 MG tablet Take 1 tablet (50 mg total) by mouth 1 (one) time each day 30 tablet 11 4 025 Active Farxiga 5 MG tablet Take 10 mg by mouth 1 (one) time each day 90 tablet 3 5 026 Active Active Problems Problem Noted Date Diagnosed Date Proteinuria 01/22/2023 01/22/2023 Family History Medical History Relation Comments Kidney [...] Health Maintenance Due Date Last Done Comments Hepatitis B Vaccine (1 of 3 - 19+ 3-dose series) 08/19 Pneumococcal Vaccine: Peds ( 0 to 5 Years) and At-Risk Patients (6 to 49 Years) (1 of 2 - PCV) 2000 Diabetes: Hemoglobin A1C 06/11/2023 Diabetes: Ophthalmology Exam 06/11/2023 Diabetes: Pedal Pulse Checked 06/11/2023 Diabetes: Sensory Foot Exam 06/11/2023 Diabetes: Visual Foot Exam 06/11/2023 Influenza Vaccine (#1) 2024 Insurance [facility] [place] [phone] * Guarantor: Potter, Emir Account Type Relation to Patient Date of Phone Billing Address Personal/Family Self [address] [place] [address] [facility] [place] [address] Care Teams Stockbroker Relationship Specialty Start Date End Date Makayla Yepez MD [address] [place], [place] PCP - General Internal Medicine 01/23/23
== END 2024-11-02 13:45 | disposition home or self-care (01) ==
LOC: HO.HMCH 13:18
PROVIDERS: PCP Internal Medicine; Visit Provider Internal Medicine
DX: E11.65 Type 2 diabetes mellitus with hyperglycemia (principal); Z79.4 Long term (current) use of insulin; E66.01 Morbid (severe) obesity due to excess calories; Z68.42 Body mass index [BMI] 45.0-49.9, adult; I10 Essential (primary) hypertension; E78.00 Pure hypercholesterolemia, unspecified

== ENCOUNTER → 2024-11-02 13:18 | Outpatient (BNVA) | payer OTHER, SELFPAY | PROVIDERS: PCP Internal Medicine; Visit Provider Internal Medicine | DX: I10 Essential (primary) hypertension (principal); E78.00 Pure hypercholesterolemia, unspecified; E11.65 Type 2 diabetes mellitus with hyperglycemia; E66.01 Morbid (severe) obesity due to excess calories; Z68.42 Body mass index [BMI] 45.0-49.9, adult; Z79.4 Long term (current) use of insulin; Z13.31 Encounter for screening for depression; Z13.30 Encounter for screening examination for mental health and behavioral disorders, unspecified | CPT/HCPCS: 83036; 96127; 99212 ==

== ENCOUNTER 2025-01-17 16:01 | Outpatient (AMB) | payer OTHER, SELFPAY ==
--- NOTE | 2025-01-17 16:03 | MHC.OFFVIS ---
Vital Signs 01/17/25 16:06 Height 5 ft 6 in Weight 294 lb 15.656 oz BMI 47.6 BP 152/100 H Blood Pressure Location Rt brachial Position Sitting Pulse 90 Pulse Source Pulse Oximeter Pulse Oximetry (%) 94 Oxygen Delivery Method Room Air Intake Visit Reasons: DMT2 Intake Note: Patient present today to follow up on Type 2 Diabetes Mellitus. Last Diabetic Eye exam: 07/06/2024 [facility]. Last Podiatry Visit: Does not see a Plumbing Installer Random Glucose: 118 mg/dl Hgb A1C: 6.9% 11/02/2024 Allergist/Immunologist Required: Yes Allergist/Immunologist Language: Salesperson Hosiery Services: Allergist/Immunologist Present Allergist/Immunologist Name: Ramírez [id number] Information Interpreted: non-clinical & clinical Accompanied by: Self / Same As Patient Allergies dulaglutide (From [facility]) Allergy (Mild, Verified 01/17/25 16:06) Rash Medication List - Last Reconciled 01/17/25 by LARON Wilder amlodipine 10 mg PO DAILY 90 days blood sugar diagnostic (FreeStyle Lite Strips) Use 1 test strip once a day blood-glucose meter (FreeStyle Lite Meter kit) As directed blood-glucose sensor (FreeStyle Vickey 3 Plus Sensor device) As directed blood-glucose,water control station engineer,cont (FreeStyle Vickey 3 [place]) As directed cholecalciferol (vitamin D3) 50 mcg PO DAILY 90 days dapagliflozin propanediol (Farxiga) 5 mg PO DAILY ergocalciferol (vitamin D2) 1,250 mcg PO QWEEK 2 months ezetimibe 10 mg PO DAILY glucose (Dex4 Glucose Quick Dissolve) 16 grams (4 x 4 gram) PO Q15M PRN insulin glargine (Lantus Solostar U-100 Insulin) 30 units (0.3 mL) subcut DAILY lancets (FreeStyle Lancets) Use 1 lancet once a day lisinopril 40 mg PO DAILY 90 days metformin 850 mg PO BID 90 days metoprolol succinate ER 25 mg PO DAILY pen needle, diabetic (Comfort EZ Pen [place]) As directed injects once a day rosuvastatin 20 mg PO DAILY 90 days semaglutide (Ozempic) 2 mg (0.75 mL) subcut QWEEK 30 days HPI Comments Details: This is a 44-year-old male with a past medical history of hypertension, obesity, type 2 diabetes, hyperlipidemia and hypertension presenting for diabetic management. It is my 1st visit with the patient. He was last seen by my colleague on 07/29/2024. He was initially diagnosed with type 2 diabetes in 2022. He has a family history of type 2 diabetes in his father and mother. Hemoglobin A1c 6.9% 11/02/2024. Reviewed CGM alber on phone. Target range 94%. High 6% Current regimen: Metformin 850 2 times daily, Farxiga 5 mg daily, Ozempic 2 mg weekly, Lantus 30 units daily Complications: Nephropathy Patient is followed by ophthalmology for elevated pressures. Hypoglycemia: rarely, treated by eating something sweet like a cookie Hypertension-prescribed Amlodipine 10 mg, Lisinopril 40 mg, Hydralazine 50 mg TID. He did not take his medications today. Patient no longer wishes to take hydralazine as he says it causes a headache and he is only taking it twice a day when he uses it. It was increased from 25 mg TID to 50 TID in October 2023 by my colleague, but he has been prescribed this for a while. He has a blood pressure cuff, but he has not been checking the readings. Currently denies headache, blurriness, dizziness, chest pain or shortness of breath. Blood pressure today is 152/100. ROS: Constitutional: No unexplained weight loss, fever, chills, fatigue or night sweats. Eyes: No vision changes, blurry vision, double vision Respiratory: No shortness of breath Cardiovascular: No chest pain Gastrointestinal: No anorexia, nausea, vomiting or diarrhea. No abdominal pain Neurologic: No dizziness, syncope, unilateral weakness, ataxia, numbness or tingling in the extremities. Skin: No rash or open wounds Endocrine: No cold or heat intolerance. No polyuria or polydipsia. Physical exam: Constitutional: Alert, in no distress. Neck: Supple, Full range of motion. No lymphadenopathy. No palpable thyroid masses. Respiratory: Clear to auscultation. Cardiovascular: S1 S2 regular. No murmurs. Neurologic: No focal neurological deficits Extremities: Warm and well perfused. No clubbing, cyanosis or edema. Psychiatric: Normal mood and affect [facility] Medical History Cellulitis of right leg Physical exam Right knee pain Left knee pain Hypovitaminosis D Super-super obese Gross hematuria COVID-19 Obesity Pure hypercholesterolemia Essential hypertension Surgical History History of ear surgery History of cholecystectomy Family History Father Hypertension Diabetes Mother Diabetes Hypertension Kidney failure Social History Housing: Apartment Alcohol intake: never Patient Tobacco Use Status: Never used Tobacco e-Cigarette/Vaping Use: Never Used Second Hand Smoke Exposure: No service: No Current occupational status: employed Current occupational exposures/hazards: No Cognitive needs: No Hearing needs: No Vision needs: Yes Physical Exam Vital Signs: Last Vital Signs Pulse 90 01/17/25 16:06 BP 152/100 H 01/17/25 16:06 Pulse Ox 94 01/17/25 16:06 Oxygen Delivery Method Room Air 01/17/25 16:06 BMI result Body Mass Index 47.6 Results Reviewed Results Reviewed: Laboratory Last Values Glucose (Clinic) 118 mg/dL (60-115) H 01/17/25 16:12 Laboratory Tests 03/02/24 03/02/24 06/22/24 08:01 08:03 06:46 Creatinine 0.81 Estimated GFR > 60 Triglycerides 106 Cholesterol 225 H LDL Cholesterol, Calc 150 H HDL Cholesterol 54 Urine Creatinine 185.19 Urine Microalbumin > 2000.0 Microalb/Creat Ratio 1079.9 H Assessment & Plan Assessment & Plan (1) T2DM (type 2 diabetes mellitus): Code(s): E11.9 - Type 2 diabetes mellitus without complications Category: Medical Qualifiers: Diabetes mellitus arbor press operator insulin use: with arbor press operator use Diabetes mellitus complication status: with hyperglycemia Qualified Code(s): E11.65 - Type 2 diabetes mellitus with hyperglycemia; Z79.4 - FPC (current) use of insulin (2) Essential hypertension: Code(s): I10 - Essential (primary) hypertension Category: Medical (3) Morbid obesity with BMI of 45.0-49.9, adult: Code(s): E66.01 - Morbid (severe) obesity due to excess calories; Z68.42 - Body mass index [BMI] 45.0-49.9, adult Category: Medical Plan 44-year-old male with controlled type 2 diabetes on his current regimen. Continue eye exams and bring glucometer to all appointments. Continue current regimen: Metformin 850 2 times daily, Farxiga 5 mg daily, Ozempic 2 mg weekly, Lantus 30 units daily Reviewed treatment of hypoglycemia. Glucose tablets sent to the pharmacy. Diabetic diet reviewed. Patient concern today that hydralazine is causing headaches, and he is not taking it as directed. Blood pressure is elevated today, but he also did not take his other medications for blood pressure today. Stop hydralazine and start metoprolol succinate 25 mg daily. Side effects reviewed. Continue amlodipine and lisinopril. He will start checking his blood pressures at home daily. We reviewed his goal is to keep blood pressure less than 130/80. If systolic is under 100 he was instructed to contact the office. Recommended low-sodium diet and avoidance of caffeine. There are orders in the system for lab work. Reminded to have these done. Follow up in 2 weeks for a recheck. Medications: New metoprolol succinate ER 25 mg PO DAILY 90 tabs 0RF glucose (Dex4 Glucose Quick Dissolve) until symptoms of low blood sugar are controlled 16 grams (4 x 4 gram) PO Q15M PRN 30 tabs 3RF hypoglycemia Discontinued hydralazine Discontinued Reason: Doctor's Order 50 mg PO TID 90 days 270 tabs 1RF I10 - Essential (primary) hypertension Patient Instructions: Continue current regimen: Metformin 850 2 times daily, Farxiga 5 mg daily, Ozempic 2 mg weekly, Lantus 30 units daily Stop Hydralazine. Continue Amlodipine and Lisinopril. Start Metoprolol 25 mg daily. If you experience low blood sugar, treat this by eating a chewable fruit candy like skittles or jelly beans (about 8 pieces), 4 ounces (1/2 cup) of fruit juice (not diet), 1 tablespoon of honey or 4 glucose tablets. If your blood sugar is under 50, take double the amount of one of the above. Recheck your blood sugar in 15 minutes. Continue com o regime atual: Metformina 850 2 vezes ao jamal, Farxiga 5 mg ao jamal, Ozempic 2 mg semanalmente, Lantus 30 unidades ao jamal. Suspenda a hidralazina. Continue com anlodipino e lisinopril. Inicie o metoprolol 25 mg ao jamal. Se voc? apresentar hipoglicemia, trate a situa??o comendo erika delphine mastig?ozzy de fruta, renzo skittles ou jujubas (cerca de 8 unidades), 1/2 x?azalea de suco de fruta (n?o diet), 1 colher de sopa de naomi ou 4 comprimidos de glicose. Se a sua glicemia estiver abaixo de 50, tome o dobro da quantidade de um dos medicamentos acima. Verifique novamente a sua glicemia em 15 minutos. Coding Level of Care Code Est Pt Level 4 (64737) Complex EM visit Add On G2211 Diagnoses Type 2 diabetes mellitus with hyperglycemia, with long-term current use of insulin E11.65; Z79.4 Diabetes mellitus arbor press operator insulin use: with nursing home use Diabetes mellitus complication status: with hyperglycemia Essential hypertension I10 Morbid obesity with BMI of 45.0-49.9, adult E66.01; Z68.42
[2025-01-17 16:06] VITALS: BP 152/100; PULSE 90; O2SAT 94; BMI 47.6
[2025-01-17 16:17] LABS: Glucose, Whole Blood 118 mg/dL (60-115)
--- OUTSIDE RECORDS SUMMARY | 2025-01-17 18:32 | XMS_ITS | Encounter Summary ---
Author Organization [email or web address] [facility] Address [address] [place] [address] Care Team Providers Care Certified Ophthalmic Surgical Assistant Name Role Phone Unavailable Primary Care Provider Unavailabl e Encounter Details Date Type Department Care Team (Latest Contact Info) Description 08/27/2020 Abstract [facility] CONVERSIONS Dental, Provider, DDS Social History [...] Care Team (Late st Contact Info) Description 01/23/2025 9:00 AM EDT Office Visit [facility] ADULT DENTAL [address] [place] [address] Sylvia Whiting documented as of this encounter Visit Diagnoses Not on filedocumented in this encounter
--- OUTSIDE RECORDS SUMMARY | 2025-01-17 18:32 | XMS_ITS | Clinical Summary ---
Author Organization [employer] [facility] Address [address] [place] [address] Care Team Providers Care Tube Winder Hand Name Role Phone Unavailable Primary Care [...] Encounters Date Type Department Care Team Description 12/19/2024 Telephone [facility] ADULT DENTAL [address] [place], [place] [id number] Sylvia Whiting from Last 3 Months Social History Tobacco [...] Description 01/23/2025 9:00 AM EDT Office Visit [facility] ADULT DENTAL [address] [place] [address] Sylvia Whiting Health Maintenance Due Date Last Done Comments Depression Screening 1981 HIV Screening 1981 Lipid Panel 1981 SDOH Screening 1981 Disability Screening 1981 Alcohol/Substance Use Screening 1993 Family Planning (PISQ) 1996 HPV Vaccines (1 - Male 3-dose series) 1996 Hepatitis C Screening 08/20/1999 Hepatitis B Vaccines (1 of 3 - 19+ 3-dose series) 2000 Dental X-Ray: Full Mouth 09/11/2024 09/10/2021 COVID-19 Vaccine ( - season) 2024 03/13/2023, 04/23/2021, 09/05/2020, Additional history exists Influenza Vaccine (#1) 2024 , 04/04/2022, 03/19/2020, [...] Procedure Name Priority Date/Time Associated Diagnosis Comments PROPHYLAXIS - ADULT Routine 07/12/2024 7 :45 AM EDT BITEWINGS - 4 RADIOGRAPHIC IMAGES Routine 07/12/2024 7:45 AM EDT PERIODIC ORAL EVALUATION - ESTABLISHED PATIENT Routine 07/12/2024 7:45 AM EDT Encounter for dental examination Dental caries Periodontal disease Dental abscess PANORAMIC RADIOGRAPHIC IMAGE Routine 09/10/2021 12:00 AM EDT from Last 3 Months or Most Recently Relevant to Health Maintenance Insurance [facility] MEDICAID STAND ADULT * Guarantor: Emir Allen Account Type Relation to Patient Date of Phone Billing Address Personal/Family Self [address] [place] [address] * Guarantor: Emir Allen Account Type Relation to Patient Date of Phone Billing Address Personal/Family Self [address] [place] [id number]
--- OUTSIDE RECORDS SUMMARY | 2025-01-17 18:32 | XMS_ITS | Encounter Summary ---
Author Organization [employer] [facility] Address [address] [place] [address] Care Team Providers Care Scanning Clerk Name Role Phone Unavailable Primary Care Provider Unavailabl e Encounter Details Date Type Department Care Team (Latest Contact Info) Description 09/10/2021 Abstract [facility] CONVERSIONS Dental, Provider, DDS Social History [...] Description 01/23/2025 9:00 AM EDT Office Visit [facility] ADULT DENTAL [address] [place] [address] Sylvia Whiting documented as of this encounter Visit Diagnoses Not on filedocumented in this encounter
== END 2025-01-17 16:48 | disposition home or self-care (01) ==
LOC: HO.ENCR 16:02
PROVIDERS: PCP Internal Medicine; Visit Provider Physician Assistant Medical
DX: E11.65 Type 2 diabetes mellitus with hyperglycemia (principal); Z79.4 Long term (current) use of insulin; I10 Essential (primary) hypertension; E66.01 Morbid (severe) obesity due to excess calories; Z68.42 Body mass index [BMI] 45.0-49.9, adult

== ENCOUNTER → 2025-01-17 16:01 | Outpatient (BNVA) | payer OTHER, SELFPAY | PROVIDERS: PCP Internal Medicine; Visit Provider Physician Assistant Medical | DX: E11.65 Type 2 diabetes mellitus with hyperglycemia (principal); E66.01 Morbid (severe) obesity due to excess calories; I10 Essential (primary) hypertension; Z79.84 Long term (current) use of oral hypoglycemic drugs; Z79.4 Long term (current) use of insulin; Z68.42 Body mass index [BMI] 45.0-49.9, adult | CPT/HCPCS: 82947; 99212 ==

== ENCOUNTER 2025-02-01 08:49 | Outpatient (REF) | payer OTHER, SELFPAY ==
[2025-02-01 09:34] LABS: MANUAL DIFF FLAG NO
[2025-02-01 09:47] LABS: Hematocrit 52.0 % (42.0-52.0); Hemoglobin 16.9 g/dl (14.0-18.0); Imm Gran Abs Auto 0.07 X10*3/uL (0.00-0.03); Imm Gran Pct Auto 1.0 % (0.0-0.4); Lymphocytes Absolute Auto 1.1 X10*3/uL (1.2-4.9); Mean Corpuscular HGB Conc 32.5 g/dl (31.0-36.0); Mean Corpuscular Hemoglobin 26.4 pg (27.0-33.0); Mean Corpuscular Volume 81.1 fL (80.0-98.0); NRBC Abs Auto 0.000 X10*3/uL (0.0-0.012); NRBC Pct Auto 0.0 /100WBC (0.0-0.2); Platelet Count 209 X10*3/uL (160-400); Red Blood Count 6.41 X10*6/uL (4.60-5.80); White Blood Count 6.7 X10*3/uL (4.8-10.8)
[2025-02-01 10:32] LABS: Alanine Aminotransferase 23 U/L (0-40); Albumin Level 4.2 g/dL (3.5-5.0); Alkaline Phosphatase 85 U/L (39-117); Anion Gap 9 (12-20); Aspartate Amino Transferase 38 U/L (5-37); Blood Urea Nitrogen 15 mg/dL (9-16); Calcium 9.3 mg/dL (8.4-10.2); Carbon Dioxide 31 mmol/L (22-29); Chloride 102 mmol/L (96-108); Cholesterol 170 mg/dL (<200); Estimated Glomerular Filt Rate > 60; HDL Cholesterol 44 mg/dL (>40); Iron 59 mcg/dL (45-160); Percent Iron Saturation 24 % (15-50); Potassium 4.0 mmol/L (3.3-5.1); Sodium 138 mmol/L (135-145); Total Iron Binding Capacity 243 mcg/dL (228-428); Total Protein 7.4 g/dL (6.5-8.0); Triglycerides 129 mg/dL (<150); Unsaturated Iron Binding 184 ug/dL
[2025-02-01 10:43] LABS: PSA,Total (Free>4and<10) 0.20 ng/mL (0.00-4.00)
[2025-02-01 10:55] LABS: Folate 5.3 ng/mL (> or = 4.0); Vitamin B12 157 pg/mL (200-900)
[2025-02-01 11:49] LABS: Microalbum/Creatinine Ratio Ur 1186.2 ug/mg cr (<30)
== END 2025-02-01 08:50 | disposition home or self-care (01) ==
LOC: HO.LAB 08:49
PROVIDERS: PCP Internal Medicine; Visit Provider Internal Medicine
DX: E11.65 Type 2 diabetes mellitus with hyperglycemia (principal); E53.8 Deficiency of other specified B group vitamins; E78.5 Hyperlipidemia, unspecified; R35.1 Nocturia; D58.2 Other hemoglobinopathies; R80.9 Proteinuria, unspecified; E55.9 Vitamin D deficiency, unspecified; Z79.4 Long term (current) use of insulin
CPT/HCPCS: 36415; 80053; 80061; 82043; 82306; 82570; 82607; 82746; 83540; 84153; 85025

== ENCOUNTER 2025-02-10 13:42 | Outpatient (AMB) | payer OTHER, SELFPAY ==
[2025-02-10 14:05] VITALS: BP 126/76; PULSE 102; O2SAT 96; BMI 48.2
--- NOTE | 2025-02-10 14:05 | MHC.OFFVIS ---
Vital Signs 02/10/25 14:05 02/10/25 14:35 Height 5 ft 6 in Weight 298 lb 11.622 oz BMI 48.2 BP 126/76 Blood Pressure Location Rt brachial Position Sitting Pulse 102 H 98 Pulse Source Pulse Oximeter Pulse Oximetry (%) 96 Oxygen Delivery Method Room Air Intake Visit Reasons: TYPE II DM, HTN check Intake Note: Patient present today to follow up on Type 2 Diabetes Mellitus.? Last Diabetic Eye exam: July 2024 Last Podiatry Visit: Does not see a Pole Peeling Machine Operator Helper Random Glucose:?228 mg/dl HgA1C: 7.3 Engineering Secretary Required: Yes Accompanied by: Self / Same As Patient Allergies dul[facility] ([facility]) Allergy (Mild, Verified 02/10/25 14:09) Rash Medication List - Last Reconciled 02/10/25 by LARON Wilder amlodipine 10 mg PO DAILY 90 days blood sugar diagnostic (FreeStyle Lite Strips) Use 1 test strip once a day blood-glucose meter (FreeStyle Lite Meter kit) As directed blood-glucose sensor (iSyndicayle Vickey 3 Plus Sensor device) As directed to monitor blood glucose continuously. Change sensor every 15 days. blood-glucose,manager enterprise content management,cont (FreeStyle Vickey 3 [place]) As directed cholecalciferol (vitamin D3) 50 mcg PO DAILY 90 days cyanocobalamin (vitamin B-12) 1,000 mcg PO DAILY dapagliflozin propanediol (Farxiga) 5 mg PO DAILY ergocalciferol (vitamin D2) 1,250 mcg PO QWEEK 2 months ezetimibe 10 mg PO DAILY glucose (Dex4 Glucose Quick Dissolve) 16 grams (4 x 4 gram) PO Q15M PRN insulin glargine (Lantus Solostar U-100 Insulin) 30 units (0.3 mL) subcut DAILY lancets (FreeStyle Lancets) Use 1 lancet once a day lisinopril 40 mg PO DAILY 90 days metformin 850 mg PO BID 90 days metoprolol succinate ER 25 mg PO DAILY pen needle, diabetic (Comfort EZ Pen [place]) As directed injects once a day rosuvastatin 20 mg PO DAILY 90 days tirzepatide (Mounjaro) 2.5 mg (0.5 mL) subcut QWEEK HPI Comments Details: This is a 44-year-old male with a past medical history of hypertension, obesity, type 2 diabetes, hyperlipidemia and hypertension presenting for diabetic management. He was initially diagnosed with type 2 diabetes in 2022. He has a family history of type 2 diabetes in his father and mother. Hemoglobin A1c 7.3% today up from 6.9%. Current regimen: Metformin 850 2 times daily, Farxiga 5 mg daily, Ozempic 2 mg weekly, Lantus 30 units daily He has been out of Ozempic for the past month. Insurance no longer covers it. Complications: Nephropathy (microalbuminuria) Patient is followed by ophthalmology for elevated pressures. Hypoglycemia: rarely, treated by eating something sweet like a cookie Drinks water, sometimes juice or soda, tries to have diet Does not drink alcohol Nonsmoker Hypertension-patient reported noncompliance with medication due to hydralazine causing headaches. His blood pressure was elevated at his last visit, but he had also not taken his other medications. He was instructed to stop hydralazine and start metoprolol succinate 25 mg daily. He is taking lisinopril 40 mg a day and amlodipine 10 mg daily. His blood pressure today is 126/76. He is taking Zetia and rosuvastatin for hyperlipidemia. LDL 101 with a goal of less than 100. ROS: Constitutional: No unexplained weight loss, fever, chills, fatigue or night sweats. Eyes: No vision changes, blurry vision, double vision Respiratory: No shortness of breath Cardiovascular: No chest pain Gastrointestinal: No anorexia, nausea, vomiting or diarrhea. No abdominal pain Neurologic: No dizziness, syncope, unilateral weakness, ataxia, numbness or tingling in the extremities. Skin: No rash or open wounds Endocrine: No cold or heat intolerance. No polyuria or polydipsia. Physical exam: Constitutional: Alert, in no distress. Neck: Supple, Full range of motion. No lymphadenopathy. No palpable thyroid masses. Respiratory: Clear to auscultation. Cardiovascular: S1 S2 regular. No murmurs. Neurologic: No focal neurological deficits Psychiatric: Normal mood and affect [facility] Medical History (Updated 02/10/25 @ 17:30 by LARON Wilder) B12 deficiency Cellulitis of right leg Physical exam Right knee pain Left knee pain Hypovitaminosis D Super-super obese Gross hematuria COVID-19 Obesity Pure hypercholesterolemia Essential hypertension Surgical History History of ear surgery History of cholecystectomy Family History Father Hypertension Diabetes Mother Diabetes Hypertension Kidney failure Social History Housing: Apartment Alcohol intake: never Patient Tobacco Use Status: Never used Tobacco e-Cigarette/Vaping Use: Never Used Second Hand Smoke Exposure: No service: No Current occupational status: employed Current occupational exposures/hazards: No Cognitive needs: No Hearing needs: No Vision needs: Yes Physical Exam Vital Signs: Last Vital Signs Pulse 98 02/10/25 14:35 BP 126/76 02/10/25 14:05 Pulse Ox 96 02/10/25 14:05 Oxygen Delivery Method Room Air 02/10/25 14:05 BMI result Body Mass Index 48.2 Office Procedures Glucose Monitoring Details Details: See HPI 93935 - Glucose monitoring, continuous-physician I&R Procedure code (CPT) selection complete Results AMB Hemoglobin A1c AMB Hemoglobin A1c 7.3 % Last Edit by Samantha Still CMA on 02/10/25 14:26 Results Reviewed Results Reviewed: Laboratory Last Values Glucose (Clinic) 228 mg/dL (60-115) H 02/10/25 14:15 Hgb A1c (Clinic) 7.3 % (4.0-6.0) H 02/10/25 14:21 Laboratory Tests 02/01/25 02/01/25 09:27 09:28 Creatinine 0.85 Estimated GFR > 60 AST 38 H ALT 23 Triglycerides 129 Cholesterol 170 LDL Cholesterol, Calc 101 H HDL Cholesterol 44 Urine Creatinine 157.81 Urine Microalbumin 1872.0 Microalb/Creat Ratio 1186.2 H Assessment & Plan Assessment & Plan (1) T2DM (type 2 diabetes mellitus): Code(s): E11.9 - Type 2 diabetes mellitus without complications Category: Medical Qualifiers: Diabetes mellitus complication status: with hyperglycemia Diabetes mellitus regional intermodal truck driver insulin use: with regional intermodal truck driver use Qualified Code(s): E11.65 - Type 2 diabetes mellitus with hyperglycemia; Z79.4 - termite control service representative (current) use of insulin (2) Essential hypertension: Code(s): I10 - Essential (primary) hypertension Category: Medical (3) Morbid obesity with BMI of 45.0-49.9, adult: Code(s): E66.01 - Morbid (severe) obesity due to excess calories; Z68.42 - Body mass index [BMI] 45.0-49.9, adult Category: Medical (4) Pure hypercholesterolemia: Code(s): E78.00 - Pure hypercholesterolemia, unspecified Category: Medical (5) B12 deficiency: Code(s): E53.8 - Deficiency of other specified B group vitamins Category: Medical Plan 44-year-old male with suboptimally controlled type 2 diabetes. Previously well-controlled when he was able to take Ozempic which is no longer covered. Start Mounjaro 2.5 mg weekly. Continue metformin 850 twice a day, Farxiga 5 mg daily, Lantus 30 units daily. Continue eye exams and bring glucometer to all appointments. Reviewed treatment of hypoglycemia. Glucose tablets have been prescribed. Diabetic diet reviewed. Hypertension is well-controlled now. Continue metoprolol, lisinopril, amlodipine. Recommended low-sodium diet and avoidance of caffeine. Hyperlipidemia-LDL near goal. Starting Mounjaro which should help with weight loss and cholesterol. Continue Zetia and rosuvastatin. Mediterranean diet reviewed in detail. B12 deficiency-prescribed supplement. Follow up in 1 month for type 2 diabetes. Orders: Orders AMB Hemoglobin A1c Today E11.65 - Type 2 diabetes mellitus with hyperglycemia, Z79.4 - group home (current) use of insulin AMB Glucose Monitoring Today E11.9 - Type 2 diabetes mellitus without complications Medications: New tirzepatide (Mounjaro) for 4 weeks 2.5 mg (0.5 mL) subcut QWEEK 2 mL 0RF cyanocobalamin (vitamin B-12) 1,000 mcg PO DAILY 90 caps 0RF Discontinued semaglutide (Ozempic) Discontinued Reason: Doctor's Order 2 mg (0.75 mL) subcut QWEEK 30 days 3.75 mL 6RF E11.9 - Type 2 diabetes mellitus without complications Patient Instructions: Continue Metformin 850 2 times daily, Farxiga 5 mg daily and Lantus 30 units daily Start Mounjaro 2.5 mg weekly If you experience low blood sugar, treat this by eating a chewable fruit candy like skittles or jelly beans (about 8 pieces), 4 ounces (1/2 cup) of fruit juice (not diet), 1 tablespoon of honey or 4 glucose tablets. If your blood sugar is under 50, take double the amount of one of the above. Recheck your blood sugar in 15 minutes. Coding Level of Care Code Est Pt Level 4 (50310) Diagnoses Type 2 diabetes mellitus with hyperglycemia, with long-term current use of insulin E11.65; Z79.4 Diabetes mellitus complication status: with hyperglycemia Diabetes mellitus penitentiary insulin use: with regional intermodal truck driver use Essential hypertension I10 Morbid obesity with BMI of 45.0-49.9, adult E66.01; Z68.42 Pure hypercholesterolemia E78.00 B12 deficiency E53.8 CPT Codes Details - CPT: 61073 - Glucose monitoring, continuous-physician I&R ([id number])
[2025-02-10 14:20] LABS: Glucose, Whole Blood 228 mg/dL (60-115)
[2025-02-10 14:35] VITALS: PULSE 98
--- OUTSIDE RECORDS SUMMARY | 2025-02-10 16:10 | XMS_ITS | Encounter Summary ---
Author Organization [employer] [facility] Address [address] [place] [address] Care Team Providers Care Fws Faculty Assistant Name Role Phone Unavailable Primary Care Provider Unavailabl e Encounter Details Date Type Department Care Team (Latest Contact Info) Description 08/27/2020 Abstract [facility] CONVERSIONS Dental, Provider, DDS Social [...] Care Team (Late st Contact Info) Description 03/02/2025 9:30 AM EST Office Visit [facility] ADULT DENTAL [address] [place] [address] Conroy-Claros, Clarissa, DDS [address] [place] [address] 07/24/2025 9:30 AM EDT Office Visit [facility] ADULT DENTAL [address] [place] [address] Sylvia Whiting documented as of this encounter Visit Diagnoses Not on filedocumented in this encounter
--- OUTSIDE RECORDS SUMMARY | 2025-02-10 16:10 | XMS_ITS | Clinical Summary ---
Author Organization [employer] [facility] Address [address] [facility] 7t [place] [address] Care Team Providers Care Cream Separator Operator Name Role Phone Unavailable Primary Care Provider Unavailabl e Allergies No known active allergies Medications lisinopril 40 MG tablet Take 40 mg by mouth Once per day. Active hydroCHLOROthia zide (HYDRODiuril) 25 MG tablet Take 25 mg by mouth Once per day. Active metoprolol succinate XL (Toprol-XL) 25 MG 24 hr tablet Take 25 mg by mouth Once per day. Do not crush or chew. Active chlorhexidine (Peridex) 0.12 % solution Use 15 mL in the mouth or throat if needed (for mouthwash 15 ml for 30 seconds, swish and spit) for up to 14 days. 473 mL 02/07/20 Active Problems Problem Noted Date Diagnosed Date Dental caries extending into pulp 09/04/2023 Proteinuria 01/22/2023 Essential hypertension 06/22/2017 Lumbago with sciatica 06/22/2017 Exotropia 07/14/2012 History of cholecystectomy 07/14/2012 Hypertension 09/19/2011 Morbid obesity (CMS/[facility]) 09/19/2011 Pure hypercholesterolemia 09/19/2011 Encounters Date Type Department Care Team Description 01/23/2025 9:00 AM EDT Office Visit [facility] [address] [place] [address] Sylvia Whiting Encounter for dental examination (Primary Dx); Dental caries; Dental calculus; Dental plaque; Halitosis; Bone loss; Periodontal disease 12/19/2024 Telephone [facility] [address] [place] [address] Sylvia Whiting from Last 3 Months Social [...] Sign Reading Time Taken Comments Blood Pressure 160/90 01/23/2025 9:02 AM EDT Pulse 70 08/24/2024 10:21 AM EDT Temperature - - Respiratory Rate - - Oxygen Saturation - - Inhaled Oxygen Concentration - - Weight - - Height - - Body Mass Index - - Plan of Treatment Upcoming Encounters Date Type Department Care Team (Late st Contact Info) Description 03/02/2025 9:30 AM EST Office Visit [facility] [address] [place] [address] Clarissa Bell, DDS [address] [place] [address] 07/24/2025 9:30 AM EDT Office Visit [facility] [address] [place] [address] Sylvia Whiting Health Maintenance Due Date Last Done Comments Depression Screening 1981 HIV Screening 1981 Lipid Panel 1981 SDOH Screening 1981 Disability Screening 1981 Alcohol/Substance Use Screening 1993 Family Planning (PISQ) 1996 HPV Vaccines (1 - Male 3-dose series) 1996 Hepatitis C Screening 08/20/1999 Hepatitis B Vaccines (1 of 3 - 19+ 3-dose series) 2000 COVID-19 Vaccine ( season) 2024 03/13/2023, 04/23/2021, 09/05/2020, Additional history exists Influenza Vaccine (#1) 2024 , 04/04/2022, 03/19/2020, Additional history exists Dental Oral Exam 07/24/2025 01/23/2025, , 08/12/2023, Additional history exists Dental Prophylaxis 07/24/2025 01/23/2025, 0 07/12/2024, 08/05/2023, Additional history exists Tobacco Screening 01/23/2026 01/23/2025 Dental X-Ray: Bitewings 01/24/2026 01/24/20 25, 07/12/2024, 08/05/2023, Additional history exists DTaP/Tdap/Td Vaccines (4 - Td or Tdap) 06/22/2027 06/22/2017, 06/10/2017, 04/27/2001 Dental X-Ray: Full Mouth 01/25/2028 01/23/2025, 08/25 Zoster Vaccines (1 of 2) 08/20/2031 RSV [...] Procedure Name Priority Date/Time Associated Diagnosis Comments COMPREHENSIVE PERIODONTAL EVALUATION - NEW OR ESTABLISHED PATIENT Routine 01/23/2025 9:00 AM EDT Encounter for dental examination Dental caries Dental calculus Dental plaque Halitosis Bone loss Periodontal disease PERIODIC ORAL EVALUATION - ESTABLISHED PATIENT Routine 01/23/2025 9:00 AM EDT Encounter for dental examination Dental caries Dental calculus Dental plaque Halitosis Bone loss Periodontal disease CASE PRESENTATION, DETAILED AND EXTENSIVE TREATMENT PLANNING Routine 01/23/2025 9:00 AM EDT ORAL HYGIENE INSTRUCTIONS Routine 2024 9:00 AM EDT PROPHYLAXIS - ADULT Routine 01/23/2025 9 :00 AM EDT INTRAORAL - COMPLETE SERIES OF RADIOGRAPHIC IMAGES Routine 01/23/2025 9:00 AM EDT from Last 3 Months Insurance [facility] ST[facility] AD[facility] * Guarantor: Emir Allen Account Type Relation to Patient Date of Phone Billing Address Personal/Family Self [address] [place] [address] * Guarantor: Emir Allen Account Type Relation to Patient Date of Phone Billing Address Personal/Family Self [address] [place] [address] * Guarantor: Emir Allen Account Type Relation to Patient Date of Phone Billing Address Personal/Family Self [address] [place] [address] * Guarantor: Emir Allen Account Type Relation to Patient Date of Phone Billing Address Personal/Family Self [address] [place] [address]
--- OUTSIDE RECORDS SUMMARY | 2025-02-10 16:10 | XMS_ITS | Encounter Summary ---
Author Organization [employer] [facility] Address [address] [facility] 7t [place] [address] Care Team Providers Care Physician President Name Role Phone Unavailable Primary Care Provider Unavailabl e Encounter Details Date Type Department Care Team (Latest Contact Info) Description 09/10/2021 Abstract [facility] CONVERSIONS Dental, Provider, DDS Social History Tobacco [...] Description 03/02/2025 9:30 AM EST Office Visit [facility] [address] [place] [address] Conroy-Claros, Clarissa, DDS [address] [place] [address] 07/24/2025 9:30 AM EDT Office Visit [facility] ADULT [facility] [address] [place] [address] Sylvia Whiting documented as of this encounter Visit Diagnoses Not on filedocumented in this encounter
== END 2025-02-10 14:40 | disposition home or self-care (01) ==
LOC: HO.ENCR 13:43
PROVIDERS: PCP Internal Medicine; Visit Provider Physician Assistant Medical
DX: E11.65 Type 2 diabetes mellitus with hyperglycemia (principal); Z79.4 Long term (current) use of insulin; I10 Essential (primary) hypertension; E66.01 Morbid (severe) obesity due to excess calories; Z68.42 Body mass index [BMI] 45.0-49.9, adult; E78.00 Pure hypercholesterolemia, unspecified; E53.8 Deficiency of other specified B group vitamins

== ENCOUNTER → 2025-02-10 13:42 | Outpatient (BNVA) | payer OTHER, SELFPAY | PROVIDERS: PCP Internal Medicine; Visit Provider Physician Assistant Medical | DX: E11.65 Type 2 diabetes mellitus with hyperglycemia (principal); Z79.4 Long term (current) use of insulin; E66.01 Morbid (severe) obesity due to excess calories; Z68.42 Body mass index [BMI] 45.0-49.9, adult; E78.00 Pure hypercholesterolemia, unspecified; E53.8 Deficiency of other specified B group vitamins | CPT/HCPCS: 82947; 83036; 99212 ==

== ENCOUNTER 2025-02-22 09:26 | Outpatient (AMB) | payer OTHER, SELFPAY ==
[2025-02-22 09:28] VITALS: BP 116/82; PULSE 74; O2SAT 96; BMI 47.5
--- NOTE | 2025-02-22 09:28 | A.OFFPC_ITS ---
Vital Signs 02/22/25 09:28 Height 5 ft 6 in Weight 294 lb 8 oz BMI 47.5 BP 116/82 Blood Pressure Location Lt brachial Position Sitting Pulse 74 Pulse Source Pulse Oximeter Pulse Oximetry (%) 96 Oxygen Delivery Method Room Air Intake Visit Reasons: Annual Exam Hot Wire Glass Tube Cutter Required: No Accompanied by: Self / Same As Patient Allergies dulaglutide (From [facility]) Allergy (Mild, Verified 02/22/25 09:42) Rash Medication List - Last Reconciled 02/22/25 by Makayla Cochran MD amlodipine 10 mg PO DAILY 90 days blood sugar diagnostic (FreeStyle Lite Strips) Use 1 test strip once a day blood-glucose meter (FreeStyle Lite Meter kit) As directed blood-glucose sensor (KonotorStyle Vickey 3 Plus Sensor device) As directed to monitor blood glucose continuously. Change sensor every 15 days. blood-glucose,health claims examiner,cont (FreeStyle Vickey 3 [place]) As directed cholecalciferol (vitamin D3) 50 mcg PO DAILY 90 days cyanocobalamin (vitamin B-12) 1,000 mcg PO DAILY dapagliflozin propanediol (Farxiga) 5 mg PO DAILY ergocalciferol (vitamin D2) 1,250 mcg PO QWEEK 2 months ezetimibe 10 mg PO DAILY glucose (Dex4 Glucose Quick Dissolve) 16 grams (4 x 4 gram) PO Q15M PRN insulin glargine (Lantus Solostar U-100 Insulin) 30 units (0.3 mL) subcut DAILY lancets (FreeStyle Lancets) Use 1 lancet once a day lisinopril 40 mg PO DAILY 90 days metformin 850 mg PO BID 90 days metoprolol succinate ER 25 mg PO DAILY pen needle, diabetic (Comfort EZ Pen Welsh) As directed injects once a day rosuvastatin 20 mg PO DAILY 90 days tirzepatide (Mounjaro) 2.5 mg (0.5 mL) subcut QWEEK Tobacco use date assessed: 02/22/25 Dental Screening Dental Screen Date: 02/22/25 Did you have a dental visit in the last 12 months?: Yes Did you have a dental problem in the last 6 months where you did not have access to dental care?: No Was dental information given to patient?: Patient has dentist HPI HPI Comments History of Present Illness Details The patient is a 44-year-old male presenting for an annual physical examination and management of chronic conditions. The patient has a history of diabetes mellitus and is followed by endocrinology. His current medications include Farxiga 5 mg, Lantus 30 units, metformin 850 mg twice daily, and he started Mounjaro 2.5 mg in the past week. He has a known allergy to Trulicity, which caused a rash. His hemoglobin A1c on February 10 was 7.3%. He has a history of hypertension with blood pressure readings within the goal of less than 130/80 mmHg. His antihypertensive medications include amlodipine 10 mg, lisinopril 40 mg, and metoprolol. For hyperlipidemia, the patient takes rosuvastatin 20 mg and ezetimibe 10 mg. His LDL cholesterol was 101 mg/dL on February 01. The patient was found to have a vitamin B12 level of 157, which is noted to be very low, and low vitamin D. Metformin use is considered a possible cause of the B12 deficiency. He was previously taking oral vitamin B12 and oral vitamin D. He denies any numbness in his arms or legs. Past surgical history includes a cholecystectomy, an ear surgery, and a plastic surgery. His mother is alive and has diabetes and hypertension. The patient does not smoke or drink alcohol. He has morbid obesity with a BMI of 47.5. His last tetanus vaccine was in 2018. Recent labs showed normal white blood cells, hemoglobin, liver enzymes, and prostate results. [facility] Medical History (Updated 02/22/25 @ 12:41 by Makayla Cochran MD) B12 deficiency Cellulitis of right leg Physical exam Right knee pain Left knee pain Hypovitaminosis D Super-super obese Gross hematuria COVID-19 Obesity Pure hypercholesterolemia Essential hypertension Surgical History History of ear surgery History of cholecystectomy Family History Father Hypertension Diabetes Mother Diabetes Hypertension Kidney failure Social History Housing: Apartment Alcohol intake: never Patient Tobacco Use Status: Never used Tobacco e-Cigarette/Vaping Use: Never Used Second Hand Smoke Exposure: No service: No Current occupational status: employed Current occupational exposures/hazards: No Cognitive needs: No Hearing needs: No Vision needs: Yes Questionnaire Thrive Questionnaire Date Thrive assessed: 11/02/24 I am a: Patient What is your living situation today?: I have a steady place to live Within the past 12 months, did the food you bought not last and you didn't have the money to get more?: I choose not to answer this question Within the past 12 months, did you worry whether your food would run out before you got money to buy more?: I choose not to answer this question Do you have trouble paying for medicines?: No Do you have trouble getting transportation to medical appointments?: No Do you have trouble paying your heating and electricity bill?: No Do you have trouble taking care of your child, family member or friend?: No Do you have trouble with day-to-day activities such as bathing, preparing meals, shopping, managing finances, etc.?: No Are you currently unemployed and looking for a job?: No Are you interested in more education?: No Please select the resources that you would like help with: None Currently or been in a relationship where the following occur: I choose not to answer THRIVE Score: 0 AUDIT C Alcohol Use Questionnaire (AUDIT-C) 1. How often do you have a drink containing alcohol?: Never 3. How often do you have six or more drinks on one occasion?: Never Total Score: 0 Score Reviewed/Action Taken: No YAEL-7 AMB Questionnaire YAEL-7 Date YAEL - 7 assessed: 11/02/24 Source: Developed by Drs. Kannan Vigil, Radha Bauer, Samuel Rodriguez and colleagues, with an educational dorinda from [employer]. Review of Systems Const All systems reviewed & are unremarkable except as noted in HPI and below Card Denies chest pain at rest, Denies chest pain with activity, Denies edema, Denies irregular heart rhythm, Denies claudication, Denies dyspnea, Denies dyspnea on exertion, Denies orthopnea, Denies paroxysmal nocturnal dyspnea and Denies slow heart rate Resp Denies cough, Denies dyspnea and Denies dyspnea on exertion GI Denies abdominal pain, Denies change in bowel habits, Denies excessive flatus, Denies nausea and Denies vomiting Denies urinary hesitancy, Denies urinary incontinence and Denies urinary urgency Musc Denies abnormal gait, Denies atrophy, Denies deformity and Denies limited range of motion Skin/Breast Denies bleeding lesions, Denies changing lesions and Denies rash Neuro Denies abnormal gait, Denies behavioral changes, Denies confusion and Denies lack of coordination Psych Denies behavioral changes and Denies confusion Endo Denies cold intolerance Physical exam (Primary Care) Vital Signs: Last Vital Signs Pulse 74 02/22/25 09:28 BP 116/82 02/22/25 09:28 Pulse Ox 96 02/22/25 09:28 Oxygen Delivery Method Room Air 02/22/25 09:28 BMI result Body Mass Index 47.5 BMI Assessment/Plan discussion: High BMI High, discussed plan: lifestyle, weight reduction, dietary and physical activity Tobacco/Smoking Status: Tobacco use Status Tobacco use date assessed 02/22/25 02/22/25 09:31 Patient Tobacco Use Status Never used Tobacco 02/22/25 09:31 e-Cigarette/Vaping Use Never Used 02/22/25 09:31 Thrive Assessment: Date of Thrive Assessment Date Thrive assessed 11/02/24 02/22/25 09:31 Currently or been in a relationship where the following occur: I choose not to answer Const General: No confusion Orientation/consciousness: patient oriented x3 and No confusion HENMT Head: Yes normal to inspection, Yes normocephalic and Yes atraumatic Ears: external ears normal Eyes General: appearance normal, both eyes and all related structures Eyelids: Yes eyelids normal Conjunctivae: conjunctivae normal Neck Neck: Yes normal visual inspection and Yes supple Resp Effort & Inspection: normal respiratory effort Auscultation: clear to auscultation bilaterally Cardio Jugular venous distension: no JVD Rate: regular rate Rhythm: regular rhythm Heart sounds: S1 normal heart sound present and S2 normal heart sound present GI Inspection: Yes normal to inspection Palpation (GI): Soft to palpation and nontender Auscultation: normal bowel sounds Skin General skin exam: no rashes or lesions noted Neuro General: patient oriented x3, no focal motor deficits and No confusion Extrem General: Yes full ROM Psych Appearance: grossly normal Office Procedures Flu Questionnaire Does the patient have a severe egg allergy?: No Does the patient have severe life threatening allergies?: No Does the patient have a fever or illness today?: No Has the patient ever had Guillain-[place] Syndrome?: No Has the patient ever had any past reaction to a flu shot?: No Immunizations Fluarix [id number] (PF) 45 mcg (15 mcg x 3)/0.5 mL IM syringe Performing Provider: Makayla Cochran MD Performing Location: [facility] Administered by: MANN Brannon on 02/22/25 10:05 Dose Route Admin Location Dispensed Lot Number Expiration Date [employer]DC [employer] 0.5 mL IM Left Deltoid 0.5 mL [id number] 10/24/25 [id number] [employer] (Droppy) VIS Given Date VIS Provided VIS Publication Date 02/22/25 Single Vaccine 24 Eligibility Eligibility Date Funding Source Not [facility] Eligible 02/22/25 Private Coding Level of Care Code Est Pt Level 3 (42496) Est Pt Prev Care 40-64y(49941) Diagnoses Physical exam Z00.00 B12 deficiency E53.8 Type 2 diabetes mellitus with hyperglycemia, with long-term current use of insulin E11.65; Z79.4 Diabetes mellitus technician terminal and repeater insulin use: with technician terminal and repeater use Diabetes mellitus complication status: with hyperglycemia Morbid obesity with BMI of 45.0-49.9, adult E66.01; Z68.42 Microalbuminuria R80.9 Time Spent (min) 32 Assessment & Plan Assessment & Plan (1) Physical exam: Code(s): Z00.00 - Encounter for general adult medical examination without abnormal findings Category: Medical (2) B12 deficiency: Code(s): E53.8 - Deficiency of other specified B group vitamins Category: Medical (3) T2DM (type 2 diabetes mellitus): Code(s): E11.9 - Type 2 diabetes mellitus without complications Category: Medical Qualifiers: Diabetes mellitus technician terminal and repeater insulin use: with mcc use Diabetes mellitus complication status: with hyperglycemia Qualified Code(s): E11.65 - Type 2 diabetes mellitus with hyperglycemia; Z79.4 - [facility] (current) use of insulin (4) Morbid obesity with BMI of 45.0-49.9, adult: Code(s): E66.01 - Morbid (severe) obesity due to excess calories; Z68.42 - Body mass index [BMI] 45.0-49.9, adult Category: Medical (5) Microalbuminuria: Code(s): R80.9 - Proteinuria, unspecified Category: Medical Plan Plan 1. Physical exam Repeat in a year. 2. Diabetes Mellitus The patient's hemoglobin A1c is 7.3%, which is close to the goal of less than 7%. He continues to be followed by endocrinology. He recently started Mounjaro 2.5mg and will continue his current regimen, which includes metformin, Farxiga, and Lantus. 3. Vitamin B12 Deficiency The patient's vitamin B12 is very low at 157, possibly related to metformin use. He will begin monthly vitamin B12 injections. 4. Vitamin D Deficiency The patient has low vitamin D and will continue taking his oral supplement. 5. Hyperlipidemia The patient's LDL cholesterol is 101 mg/dL, which is approaching the goal of less than 70 mg/dL. He will continue his current medication regimen of rosuvastatin and ezetimibe. 6. Hypertension The patient's blood pressure is well-controlled. He will continue his current medications including amlodipine, lisinopril, and metoprolol. Orders: Orders Vitamin D 25-OH Total 4 Months E55.9 - Vitamin D deficiency, unspecified Microalbumin, Random (w Creat) 4 Months R80.9 - Proteinuria, unspecified Comprehensive [place]. Panel Fast 4 Months E11.65 - Type 2 diabetes mellitus with hyperglycemia, Z79.4 - roasterman (current) use of insulin Vitamin B12 and Folate 4 Months E53.8 - Deficiency of other specified B group vitamins Lipid Panel 4 Months E78.5 - Hyperlipidemia, unspecified Intrinsic Factor Antibodies 4 Months E53.8 - Deficiency of other specified B group vitamins Parietal Cell Antibody 4 Months E53.8 - Deficiency of other specified B group vitamins Influenza [id number] Immunization Today Z23 - Encounter for immunization Referrals Nephrology Referral R80.9 - Proteinuria, unspecified Medications: New cyanocobalamin (vitamin B-12) 1,000 mcg IM QMONTH 4 weeks 1 mL 0RF cyanocobalamin (vitamin B-12) 1,000 mcg IM QMONTH 1 mL 4RF 4 weeks syringe with needle, safety (Easy Touch SheathLock Syringe with Needle) Use 1 injection once a month 1 ea 4RF b12 injection
--- OUTSIDE RECORDS SUMMARY | 2025-02-22 11:09 | XMS_ITS | Encounter Summary ---
Author Organization [facility] Address [address] [facility] 7t [place] [address] Care Team Providers Care Instrument Man Name Role Phone Unavailable Primary Care Provider Unavailabl e Encounter Details Date Type Department Care Team (Latest Contact Info) Description 08/27/2020 Abstract [facility] CONVERSIONS Dental, Provider, DDS Social History [...] Description 03/02/2025 9:30 AM EST Office Visit [facility] ADULT DENT[facility] [address] [place] [address] Conroy-Claros, Clarissa, DDS [address] [place] [address] 07/24/2025 9:30 AM EDT Office Visit [facility] ADULT DENT[facility] [address] [place] [address] Sylvia Whiting documented as of this encounter Visit Diagnoses Not on filedocumented in this encounter
--- OUTSIDE RECORDS SUMMARY | 2025-02-22 11:09 | XMS_ITS | Encounter Summary ---
Author Organization [employer] [facility] Address [address] [facility] 7t [place] [address] Care Team Providers Care Plug Maker Name Role Phone Unavailable Primary Care Provider Unavailabl e Encounter Details Date Type Department Care Team (Latest Contact Info) Description 09/10/2021 Abstract [facility] CONVERSIONS Dental, Provider, DDS Social History Tobacco [...] Description 03/02/2025 9:30 AM EST Office Visit [facility] ADULT DENTAL [address] [place] [address] Conroy-Claros, Clarissa, DDS [address] [place] [address] 07/24/2025 9:30 AM EDT Office Visit [facility] ADULT DENTAL [address] [place] [address] Sylvia Whiting documented as of this encounter Visit Diagnoses Not on filedocumented in this encounter
--- OUTSIDE RECORDS SUMMARY | 2025-02-22 11:09 | XMS_ITS | Clinical Summary ---
Demographics Address [address] [facility] [address] [place] [address] Home Phone Preferred Language es Marital Status Unknown Church Affiliation Unknown Race Unknown Ethnic Group Unknown Author Organization [facility] Address [address] [facility] [address] [place] [address] Phone Care Team Providers Care Foreign Language Stenographer Name Role Phone Makayla Yepez MD Primary Care Provider [phone] Allergies No known active allergies Medications metFORMIN [...] Exam 06/11/2023 Influenza Vaccine (#1) 2024 Insurance [facility] [place] [address] * Guarantor: Headrick, Emir Account Type Relation to Patient Date of Phone Billing Address Personal/Family Self [address] [place] [address] [facility] [place] [address] Care Teams Foreign Language Stenographer Relationship Specialty Start Date End Date Makayla Yepez MD [address] [place], [place] PCP - General Internal Medicine 01/23/23
--- OUTSIDE RECORDS SUMMARY | 2025-02-22 11:09 | XMS_ITS | Clinical Summary ---
Author Organization [facility] Address [address] [facility] [address] [place] [address] Care Team Providers Care Stove Refinisher Name Role Phone Unavailable Primary Care Provider [...] of cholecystectomy 07/14/2012 Hypertension 09/19/2011 Morbid obesity (CMS/[facility]) 09/19/2011 Pure hypercholesterolemia 09/19/2011 Encounters Date Type Department Care Team Description 01/23/2025 9:00 AM EDT Office Visit [facility] ADULT [facility] [address] [place] [address] Sylvia Whiting Encounter for dental examination (Primary Dx); Dental caries; Dental calculus; Dental plaque; Halitosis; Bone loss; Periodontal disease 12/19/[address] [facility] [address] [place] [address] Sylvia Whiting from Last 3 [...] Description 03/02/2025 9:30 AM EST Office Visit [facility] [address] [place] [address] Clarissa Bell, DDS [address] [place] [address] 07/24/2025 9:30 AM EDT Office Visit [facility] [address] [place] [address] Sylvia Whiting Health Maintenance Due Date Last [...] AM EDT from Last 3 Months [facility] ST[facility] * Guarantor: Emir Allen Account Type Relation to Patient Date of Phone Billing Address Personal/Family Self [address] [place] [address] * Guarantor: Emir Allen Account Type Relation to Patient Date of Phone Billing Address Personal/Family Self [address] [place] [address] * Guarantor: Emir Allen Account Type Relation to Patient Date of Phone Billing Address Personal/Family Self [address] [place] [address] * Guarantor: Emir Allen Account Type Relation to Patient Date of Phone Billing Address Personal/Family Self [address] [place] [address]
== END 2025-02-22 10:12 | disposition home or self-care (01) ==
LOC: HO.HMCH 09:27
PROVIDERS: PCP Internal Medicine; Visit Provider Internal Medicine
DX: Z00.00 Encounter for general adult medical examination without abnormal findings (principal); E11.65 Type 2 diabetes mellitus with hyperglycemia; Z79.4 Long term (current) use of insulin; E66.01 Morbid (severe) obesity due to excess calories; Z68.42 Body mass index [BMI] 45.0-49.9, adult; E53.8 Deficiency of other specified B group vitamins; R80.9 Proteinuria, unspecified; Z23 Encounter for immunization

== ENCOUNTER → 2025-02-22 09:26 | Outpatient (BNVA) | payer OTHER, SELFPAY | PROVIDERS: PCP Internal Medicine; Visit Provider Internal Medicine | DX: Z00.00 Encounter for general adult medical examination without abnormal findings (principal); I10 Essential (primary) hypertension; E78.5 Hyperlipidemia, unspecified; E55.9 Vitamin D deficiency, unspecified; E53.8 Deficiency of other specified B group vitamins; E11.65 Type 2 diabetes mellitus with hyperglycemia; E66.01 Morbid (severe) obesity due to excess calories; R80.9 Proteinuria, unspecified; Z23 Encounter for immunization; Z68.42 Body mass index [BMI] 45.0-49.9, adult; Z79.4 Long term (current) use of insulin | CPT/HCPCS: 90471; 90656; 99212; 99396 ==

== ENCOUNTER 2025-03-10 14:26 | Outpatient (AMB) | payer OTHER, SELFPAY ==
[2025-03-10 14:43] VITALS: BP 122/70; PULSE 98; O2SAT 95; BMI 48.1
--- NOTE | 2025-03-10 14:43 | A.OFFVIS_ITS ---
Vital Signs 03/10/25 14:43 Height 5 ft 6 in Weight 297 lb 13.512 oz BMI 48.1 BP 122/70 Blood Pressure Location Lt brachial Position Sitting Pulse 98 Pulse Source Pulse Oximeter Pulse Oximetry (%) 95 Oxygen Delivery Method Room Air Intake Visit Reasons: Type II Diabetes Intake Note: Patient present today to follow up on Type 2 Diabetes Mellitus.? Last Diabetic Eye exam: July 2024 Last Podiatry Visit: Does not see a [employer] Ii Assembler Random Glucose:255 mg/dl HgA1C: 7.3 02/10/2025 Dinkey Operator Slag Required: Yes Dinkey Operator Slag Language: Sign Writer Letterer Or Painter Services: Dinkey Operator Slag Present Dinkey Operator Slag Name: Audra [id number] Information Interpreted: non-clinical & clinical Accompanied by: Self / Same As Patient Allergies dulaglutide (From [facility]) Allergy (Mild, Verified 03/10/25 14:46) Rash HPI Comments Details: This is a 44-year-old male with a past medical history of hypertension, obesity, type 2 diabetes, hyperlipidemia and hypertension presenting for diabetic management. Macedonian video diplomatic interpreter: [id number] James He was initially diagnosed with type 2 diabetes in 2022. He has a family history of type 2 diabetes in his father and mother. Hemoglobin A1c 7.3% 02/10/2025. This had increased, and he has been out of Ozempic for a month because insurance stopped covering it. He had to replace his sensor yesterday so there is no data to trend. His POC is 255 after eating a sandwich for lunch from [facility]. Current regimen: Metformin 850 2 times daily, Farxiga 5 mg daily, Mounjaro 2.5 mg weekly, Lantus 30 units daily Past medication: Ozempic and he was switched to Mounjaro due to insurance Complications: Nephropathy (microalbuminuria) Patient is followed by ophthalmology for elevated pressures. Hypoglycemia: rarely, treated by eating something sweet like a cookie Drinks water, sometimes juice or soda, tries to have diet Does not drink alcohol Nonsmoker Hypertension-patient reported noncompliance with medication due to hydralazine causing headaches so it was discontinued. His blood pressure is controlled on metoprolol, lisinopril and amlodipine. He is taking Zetia and rosuvastatin for hyperlipidemia. LDL 101 with a goal of less than 100. ROS: Constitutional: No unexplained weight loss, fever, chills, fatigue or night sweats. Eyes: No vision changes, blurry vision, double vision Respiratory: No shortness of breath Cardiovascular: No chest pain Gastrointestinal: No anorexia, nausea, vomiting or diarrhea. No abdominal pain Neurologic: No dizziness, syncope, unilateral weakness, ataxia, numbness or tingling in the extremities. Skin: No rash or open wounds Endocrine: No cold or heat intolerance. No polyuria or polydipsia. Physical exam: Constitutional: Alert, in no distress. Neck: Supple, Full range of motion. No lymphadenopathy. No palpable thyroid masses. Respiratory: Clear to auscultation. Cardiovascular: S1 S2 regular. No murmurs. Neurologic: No focal neurological deficits Psychiatric: Normal mood and affect [facility] Medical History B12 deficiency Cellulitis of right leg Physical exam Right knee pain Left knee pain Hypovitaminosis D Super-super obese Gross hematuria COVID-19 Obesity Pure hypercholesterolemia Essential hypertension Surgical History History of ear surgery History of cholecystectomy Family History Father Hypertension Diabetes Mother Diabetes Hypertension Kidney failure Social History Housing: Apartment Alcohol intake: never Patient Tobacco Use Status: Never used Tobacco e-Cigarette/Vaping Use: Never Used Second Hand Smoke Exposure: No service: No Current occupational status: employed Current occupational exposures/hazards: No Cognitive needs: No Hearing needs: No Vision needs: Yes Physical Exam Vital Signs: Last Vital Signs Pulse 98 03/10/25 14:43 BP 122/70 03/10/25 14:43 Pulse Ox 95 03/10/25 14:43 Oxygen Delivery Method Room Air 03/10/25 14:43 BMI result Body Mass Index 48.1 Results Reviewed Results Reviewed: Laboratory Last Values Glucose (Clinic) 255 mg/dL (60-115) H 03/10/25 14:52 Laboratory Tests 02/01/25 02/01/25 09:27 09:28 Creatinine 0.85 Estimated GFR > 60 AST 38 H ALT 23 Triglycerides 129 Cholesterol 170 LDL Cholesterol, Calc 101 H HDL Cholesterol 44 Urine Creatinine 157.81 Urine Microalbumin 1872.0 Microalb/Creat Ratio 1186.2 H Assessment & Plan Assessment & Plan (1) T2DM (type 2 diabetes mellitus): Code(s): E11.9 - Type 2 diabetes mellitus without complications Category: Medical Qualifiers: Diabetes mellitus complication status: with hyperglycemia Diabetes mellitus fci insulin use: with fci use Qualified Code(s): E11.65 - Type 2 diabetes mellitus with hyperglycemia; Z79.4 - MCFP (current) use of insulin (2) Essential hypertension: Code(s): I10 - Essential (primary) hypertension Category: Medical (3) Morbid obesity with BMI of 45.0-49.9, adult: Code(s): E66.01 - Morbid (severe) obesity due to excess calories; Z68.42 - Body mass index [BMI] 45.0-49.9, adult Category: Medical (4) Pure hypercholesterolemia: Code(s): E78.00 - Pure hypercholesterolemia, unspecified Category: Medical Plan 44-year-old male with suboptimally controlled type 2 diabetes. Increase Mounjaro to 5 mg weekly. Continue metformin 850 twice a day, Farxiga 5 mg daily, Lantus 30 units daily. Continue eye exams and bring glucometer to all appointments. Reviewed treatment of hypoglycemia. Diabetic diet reviewed. Hypertension is well-controlled. Continue metoprolol, lisinopril, amlodipine. Recommended low-sodium diet and avoidance of caffeine. Hyperlipidemia-LDL near goal. Increasing Mounjaro which should help with weight loss and cholesterol. Continue Zetia and rosuvastatin. Follow up in 2 months. Medications: New tirzepatide (Mounjaro) 5 mg (0.5 mL) subcut QWEEK 2 mL 1RF Discontinued tirzepatide (Mounjaro) for 4 weeks Discontinued Reason: Doctor's Order 2.5 mg (0.5 mL) subcut QWEEK 2 mL 0RF Patient Instructions: Increase Mounjaro to 5 mg weekly. Continue metformin 850 twice a day, Farxiga 5 mg daily, Lantus 30 units daily. If you experience low blood sugar (under 70), treat this by eating a chewable fruit candy like skittles or jelly beans (about 8 pieces), 4 ounces (1/2 cup) of fruit juice (not diet), 1 tablespoon of honey or 4 glucose tablets. If your blood sugar is under 50, take double the amount of one of the above. Recheck your blood sugar in 15 minutes. Coding Level of Care Code Est Pt Level 4 (77149) Complex EM visit Add On G2211 Diagnoses Type 2 diabetes mellitus with hyperglycemia, with long-term current use of insulin E11.65; Z79.4 Diabetes mellitus complication status: with hyperglycemia Diabetes mellitus fci insulin use: with bilingual operator use Essential hypertension I10 Morbid obesity with BMI of 45.0-49.9, adult E66.01; Z68.42 Pure hypercholesterolemia E78.00
[2025-03-10 14:59] LABS: Glucose, Whole Blood 255 mg/dL (60-115)
--- OUTSIDE RECORDS SUMMARY | 2025-03-10 21:27 | XMS_ITS | Clinical Summary ---
Author Organization [employer] [facility] Address [address] [place] [address] Care Team Providers Care Vaccines Solutions Specialist Name Role Phone Unavailable Primary Care Provider [...] day. Do not crush or chew. Active Active Problems Problem Noted Date Diagnosed Date Dental caries extending into pulp 09/04/2023 Proteinuria 01/22/2023 Essential hypertension 06/22/2017 Lumbago with sciatica 06/22/2017 Exotropia 07/14/2012 History of cholecystectomy 07/14/2012 Hypertension 09/19/2011 Morbid obesity (CMS/HCC) 09/19/2011 Pure hypercholesterolemia 09/19/2011 Encounters Date Type Department Care Team Description 03/02/2025 9:30 AM EST Office Visit [facility] [address] [place] [address] Clarissa Bell DDS Dental caries (Primary Dx) 01/23/2025 9:00 AM EDT Office Visit [facility] [address] [place] [address] Sylvia Whiting Encounter for dental examination (Primary Dx); Dental caries; Dental calculus; Dental plaque; Halitosis; Bone loss; Periodontal disease 12/19/2024 Telephone [facility] [address] [place] [address] Sylvia Whiting from Last 3 Months Social [...] Sign Reading Time Taken Comments Blood Pressure 132/98 03/02/2025 9:27 AM EST Pulse 70 08/24/2024 10:21 AM EDT Temperature - - Respiratory Rate - - Oxygen Saturation - - Inhaled Oxygen Concentration - - Weight - - Height - - Body Mass Index - - Plan of Treatment Upcoming Encounters Date Type Department Care Team (Late st Contact Info) Description 07/24/2025 9:30 AM EDT Office Visit [facility] [address] [place] [address] Sylvia Whiting Health Maintenance Due Date Last Done Comments Depression Screening 1981 HIV Screening 1981 Lipid Panel 1981 SDOH Screening 1981 Disability Screening 1981 Alcohol/Substance Use Screening 1993 Family Planning (PISQ) 1996 HPV Vaccines (1 - Male 3-dose series) 1996 Hepatitis C Screening 08/20/1999 Hepatitis B Vaccines (1 of 3 - 19+ 3-dose series) 2000 COVID-19 Vaccine ( - season) 2024 03/13/2023, 04/23/2021, 09/05/2020, Additional history exists Dental Oral Exam 07/24/2025 01/23/2025, , 08/12/2023, Additional history exists Dental Prophylaxis 07/24/2025 01/23/2025, 0 07/12/2024, 08/05/2023, Additional history exists Dental X-Ray: Bitewings 01/24/2026 01/24/20, 07/12/2024, 08/05/2023, Additional history exists Tobacco Screening 03/02/2026 03/02/2025 DTaP/Tdap/Td Vaccines (4 - Td or Tdap) 06/22/2027 06/22/2017, 06/10/2017, 04/27/2001 Dental X-Ray: Full Mouth 01/25/2028 01/23/2025, 08/25 Zoster Vaccines (1 of 2) 08/20/2031 RSV Patients and Patients Aged 60 years or older (1 - 1-dose 75+ series) 2056 Influenza Vaccine Completed 02/22/2025, , 04/04/2022, Additional history exists HIB Vaccines Aged Out [...] PRESENTATION, DETAILED AND EXTENSIVE TREATMENT PLANNING Routine 03/02/2025 9:30 AM EST Dental caries 9 MDFL RESIN-BASED COMPOSITE - 4 OR MORE SURFACES (ANTERIOR) Routine 03/02/2025 9:30 AM EST Dental caries 8 MFL RESIN-BASED COMPOSITE - 3 SURF, ANTERIOR Routine 03/02/2025 9:30 AM EST Dental caries 10 ML RESIN-BASED COMPOSITE - 2 SURF, ANTERIOR Routine 03/02/2025 9:30 AM EST Dental caries COMPREHENSIVE PERIODONTAL EVALUATION - NEW OR ESTABLISHED [...] AM EDT from Last 3 Months Insurance [facility] MEDICAID STAND ADULT * Guarantor: Emir Allen Account Type Relation to Patient Date of Phone Billing Address Personal/Family Self [address] [place] [address] * Guarantor: Emir Allen Account Type Relation to Patient Date of Phone Billing Address Personal/Family Self [address] [place] [address] * Guarantor: Emir Allen Account Type Relation to Patient Date of Phone Billing Address Personal/Family Self [address] [place] [address] * Guarantor: Emir Allen Account Type Relation to Patient Date of Phone Billing Address Personal/Family Self [address] [place] [address]
--- OUTSIDE RECORDS SUMMARY | 2025-03-10 21:27 | XMS_ITS | Clinical Summary ---
Demographics Address [address] [place] [address] Home Phone Preferred Language es Marital Status Unknown Samaritan Affiliation Unknown Race Unknown Ethnic Group Unknown Author Organization [facility] Address [address] [place] [address] Phone Care Team Providers Care University Dean Name Role Phone Makayla Yepez MD Primary Care Provider [phone] Allergies No known active allergies Medications metFORMIN [...] time each day 30 tablet 11 4 Active Farxiga 5 MG tablet Take 10 [...] Exam 06/11/2023 Influenza Vaccine (#1) 2024 Insurance [facility] [place] [address] * Guarantor: Emir Cruz Account Type Relation to Patient Date of Phone Billing Address Personal/Family Self [address] [place] [address] [facility] [place] [address] Care Teams University Dean Relationship Specialty Start Date End Date Makayla Yepez MD [address] [place], [place] PCP - General Internal Medicine 01/23/23
--- OUTSIDE RECORDS SUMMARY | 2025-03-10 21:28 | XMS_ITS | Encounter Summary ---
Author Organization [facility] Address [address] [place] [address] Care Team Providers Care Enrollment Nurse Name Role Phone Unavailable Primary Care Provider Unavailabl e Encounter Details Date Type Department Care Team (Latest Contact Info) Description 08/27/2020 Abstract [facility] CONVERSIONS Dental, Provider, DDS Social History [...] Description 07/24/2025 9:30 AM EDT Office Visit [facility]ULT [facility] [address] [place] [address] Sylvia Whiting documented as of this encounter Visit Diagnoses Not on filedocumented in this encounter
--- OUTSIDE RECORDS SUMMARY | 2025-03-10 21:28 | XMS_ITS | Encounter Summary ---
Author Organization [employer] [facility] Address [address] [place] [address] Care Team Providers Care Kettle Cook Name Role Phone Unavailable Primary Care Provider Unavailabl e Encounter Details Date Type Department Care Team (Latest Contact Info) Description 09/10/2021 Abstract [facility] CONVERSIONS Dental, Provider, DDS Social History [...] Description 07/24/2025 9:30 AM EDT Office Visit [facility] ADULT [facility] [address] [place] [address] Sylvia Whiting documented as of this encounter Visit Diagnoses Not on filedocumented in this encounter
== END 2025-03-10 15:29 | disposition home or self-care (01) ==
LOC: HO.ENCR 14:27
PROVIDERS: PCP Internal Medicine; Visit Provider Physician Assistant Medical
DX: E11.65 Type 2 diabetes mellitus with hyperglycemia (principal); Z79.4 Long term (current) use of insulin; I10 Essential (primary) hypertension; E66.01 Morbid (severe) obesity due to excess calories; Z68.42 Body mass index [BMI] 45.0-49.9, adult; E78.00 Pure hypercholesterolemia, unspecified

== ENCOUNTER → 2025-03-10 14:26 | Outpatient (BNVA) | payer OTHER, SELFPAY | PROVIDERS: PCP Internal Medicine; Visit Provider Physician Assistant Medical | DX: E11.65 Type 2 diabetes mellitus with hyperglycemia (principal); I10 Essential (primary) hypertension; Z79.4 Long term (current) use of insulin; E66.01 Morbid (severe) obesity due to excess calories; Z68.42 Body mass index [BMI] 45.0-49.9, adult; E78.00 Pure hypercholesterolemia, unspecified | CPT/HCPCS: 82947; 99212 ==

== ENCOUNTER 2025-03-21 13:14 | Outpatient (AMB) | payer OTHER, SELFPAY ==
--- NOTE | 2025-03-21 13:21 | HO.NEPHOV ---
Vital Signs 03/21/25 13:22 Height 5 ft 6 in Weight 295 lb BMI 47.6 BP 138/90 H Blood Pressure Location Lt brachial Position Sitting Pulse 105 H Pulse Source Pulse Oximeter Pulse Oximetry (%) 93 Oxygen Delivery Method Room Air Intake Visit Reasons: INT: Proteinuria Workforce Management Consultant Required: Yes Workforce Management Consultant Name: Geraldine [id number] Accompanied by: Self / Same As Patient Allergies dulaglutide (From [facility]) Allergy (Mild, Verified 03/21/25 13:23) Rash Medication List - Last Reconciled 03/21/25 by Mesfin Schwartz MD amlodipine 10 mg PO DAILY 90 days blood sugar diagnostic (FreeStyle Lite Strips) Use 1 test strip once a day blood-glucose meter (FreeStyle Lite Meter kit) As directed blood-glucose sensor (MongoSluiceStyle Vickey 3 Plus Sensor device) As directed to monitor blood glucose continuously. Change sensor every 15 days. blood-glucose,professor of literature,cont (FreeStyle Vickey 3 [place]) As directed cholecalciferol (vitamin D3) 50 mcg PO DAILY 90 days cyanocobalamin (vitamin B-12) 1,000 mcg PO DAILY dapagliflozin propanediol (Farxiga) 5 mg PO DAILY ergocalciferol (vitamin D2) 1,250 mcg PO QWEEK 2 months ezetimibe 10 mg PO DAILY glucose (Dex4 Glucose Quick Dissolve) 16 grams (4 x 4 gram) PO Q15M PRN insulin glargine (Lantus Solostar U-100 Insulin) 30 units (0.3 mL) subcut DAILY lancets (FreeStyle Lancets) Use 1 lancet once a day lisinopril 40 mg PO DAILY 90 days metformin 850 mg PO BID 90 days metoprolol succinate ER 25 mg PO DAILY pen needle, diabetic (Comfort EZ Pen [place]) As directed injects once a day syringe with needle, safety (Easy Touch SheathLock Syringe with Needle) Use 1 injection once a month tirzepatide (Mounjaro) 5 mg (0.5 mL) subcut QWEEK HPI Comments Details: The patient is a 44 year old individual presenting for evaluation of proteinuria. Recent testing revealed 2,000 mg of protein in the urine, while the patient's kidney function is currently normal. The patient reports a prior physician, Dr. Fairchild, had previously noted the proteinuria. The patient was diagnosed with diabetes one year ago. The patient's medication history for diabetes includes an allergy to Trulicity, a 6-month course of Ozempic, and is currently on Mounjaro for the past month. The change from Ozempic to Mounjaro was due to insurance coverage. The patient also has a long-standing history of high blood pressure and has been taking lisinopril for a long time. The patient denies any trouble with urination or swelling in the legs. The patient's weight has fluctuated and has decreased from 315 pounds in 2022 to 295 pounds currently. The patient reports drinking one to five cans of sugary soda per day. [facility] Medical History B12 deficiency Cellulitis of right leg Physical exam Right knee pain Left knee pain Hypovitaminosis D Super-super obese Gross hematuria COVID-19 Obesity Pure hypercholesterolemia Essential hypertension Surgical History History of ear surgery History of cholecystectomy Family History Father Hypertension Diabetes Mother Diabetes Hypertension Kidney failure Social History Housing: Apartment Alcohol intake: never Patient Tobacco Use Status: Never used Tobacco e-Cigarette/Vaping Use: Never Used Second Hand Smoke Exposure: No service: No Current occupational status: employed Current occupational exposures/hazards: No Cognitive needs: No Hearing needs: No Vision needs: Yes Review of Systems Const Denies fever(s) and Denies weight loss Card Denies chest pain Resp Denies cough and Denies hemoptysis GI Denies abdominal pain, Denies diarrhea and Denies nausea Musc Denies back pain Neuro Denies focal weakness Physical Exam Vital Signs: Last Vital Signs Pulse 105 H 03/21/25 13:22 BP 138/90 H 03/21/25 13:22 Pulse Ox 93 03/21/25 13:22 Oxygen Delivery Method Room Air 03/21/25 13:22 BMI result Body Mass Index 47.6 Comfortable Obese . Neck supple no JVD. Lungs entry equal no rales. Heart S1-S2 heard no gallop or rub. Abdomen soft nontender. Neuro alert awake oriented. No asterixis. Extremities no edema. Results Reviewed Nephrology Results: Hgb, (14.0-18.0) 16.9 g/dl 02/01/25 WBC, (4.8-10.8) 6.7 X10*3/uL 02/01/25 Plt Count, (160-400) 209 X10*3/uL 02/01/25 Sodium, (135-145) 138 mmol/L 02/01/25 Potassium, (3.3-5.1) 4.0 mmol/L 02/01/25 Chloride, (96-108) 102 mmol/L 02/01/25 Carbon Dioxide, (22-29) 31 mmol/L H 02/01/25 BUN, (9-16) 15 mg/dL 02/01/25 Creatinine, (0.5-1.4) 0.85 mg/dL 02/01/25 Calcium, (8.4-10.2) 9.3 mg/dL 02/01/25 Urine Creatinine 157.81 mg/dL 02/01/25 Renal US 05/02/21 Assessment & Plan Assessment & Plan (1) Essential hypertension: Code(s): I10 - Essential (primary) hypertension Category: Medical (2) Diabetes mellitus: Code(s): E11.9 - Type 2 diabetes mellitus without complications Category: Medical (3) Proteinuria: Code(s): R80.9 - Proteinuria, unspecified Category: Medical Plan 1. Proteinuria - The patient presents with significant proteinuria of 2,000 mg. - The etiology is unclear, but contributing factors may include hypertension and obesity, as the one-year history of diabetes is considered short for this degree of proteinuria. - Will order comprehensive blood and urine tests to further investigate the cause. - Recommended continuing lisinopril, as it helps reduce protein spillage from the kidneys. - Follow up in six weeks to review test results and adjust the treatment plan. 2. Type 2 Diabetes Mellitus - An important aspect of management is to maintain blood sugar control. - The patient will continue with the current medication regimen. - Counseled the patient to reduce intake of sugary sodas. 3. Hypertension - Management will focus on keeping blood pressure under control. - Advised a low-salt diet to help lower blood pressure. - The patient will continue taking lisinopril. 4. Obesity - Continued weight management is a addison goal, as excess weight can contribute to proteinuria. - The current medication, Mounjaro, is expected to help with further weight loss. Orders: Orders Basic Metabolic Panel 4 Weeks E66.01 - Morbid (severe) obesity due to excess calories, I10 - Essential (primary) hypertension, R80.9 - Proteinuria, unspecified, Z68.42 - Body mass index [BMI] 45.0-49.9, adult Creatinine Urine 4 Weeks E66.01 - Morbid (severe) obesity due to excess calories, I10 - Essential (primary) hypertension, R80.9 - Proteinuria, unspecified, Z68.42 - Body mass index [BMI] 45.0-49.9, adult Protein Electrophoresis, Serum 4 Weeks E66.01 - Morbid (severe) obesity due to excess calories, I10 - Essential (primary) hypertension, R80.9 - Proteinuria, unspecified, Z68.42 - Body mass index [BMI] 45.0-49.9, adult Total Protein Urine Random 4 Weeks E66.01 - Morbid (severe) obesity due to excess calories, I10 - Essential (primary) hypertension, R80.9 - Proteinuria, unspecified, Z68.42 - Body mass index [BMI] 45.0-49.9, adult UA and rflx microscopic 4 Weeks E66.01 - Morbid (severe) obesity due to excess calories, I10 - Essential (primary) hypertension, R80.9 - Proteinuria, unspecified, Z68.42 - Body mass index [BMI] 45.0-49.9, adult MAKAYLA Reflex Titer and Pattern 4 Weeks E66.01 - Morbid (severe) obesity due to excess calories, I10 - Essential (primary) hypertension, R80.9 - Proteinuria, unspecified, Z68.42 - Body mass index [BMI] 45.0-49.9, adult Neutrophil Cytoplasma Ab 4 Weeks E66.01 - Morbid (severe) obesity due to excess calories, I10 - Essential (primary) hypertension, R80.9 - Proteinuria, unspecified, Z68.42 - Body mass index [BMI] 45.0-49.9, adult Complement C3 4 Weeks E66.01 - Morbid (severe) obesity due to excess calories, I10 - Essential (primary) hypertension, R80.9 - Proteinuria, unspecified, Z68.42 - Body mass index [BMI] 45.0-49.9, adult Complement C4 4 Weeks E66.01 - Morbid (severe) obesity due to excess calories, I10 - Essential (primary) hypertension, R80.9 - Proteinuria, unspecified, Z68.42 - Body mass index [BMI] 45.0-49.9, adult Phospholipase A2 Receptor Pnl 4 Weeks E66.01 - Morbid (severe) obesity due to excess calories, I10 - Essential (primary) hypertension, R80.9 - Proteinuria, unspecified, Z68.42 - Body mass index [BMI] 45.0-49.9, adult Coding Level of Care Code New Pt Level 4 (65879) Diagnoses Essential hypertension I10 Diabetes mellitus E11.9 Proteinuria R80.9
[2025-03-21 13:22] VITALS: BP 138/90; PULSE 105; O2SAT 93; BMI 47.6
--- OUTSIDE RECORDS SUMMARY | 2025-03-21 17:03 | XMS_ITS | Encounter Summary ---
Author Organization [facility] Address [address] [place] [address] Care Team Providers Care Training Lead Name Role Phone Unavailable Primary Care Provider Unavailabl e Encounter Details Date Type Department Care Team (Latest Contact Info) Description 08/27/2020 Abstract [facility] CONVERSIONS Dental, Provider, DDS Social History [...] Description 07/24/2025 9:30 AM EDT Office Visit [facility] ADULT [facility] [address] [place] [address] Sylvia Whiting documented as of this encounter Visit Diagnoses Not on filedocumented in this encounter
--- OUTSIDE RECORDS SUMMARY | 2025-03-21 17:03 | XMS_ITS | Encounter Summary ---
Author Organization [facility] Address [address] [place] [address] Care Team Providers Care Slot Shift Manager Name Role Phone Unavailable Primary Care Provider Unavailabl e Encounter Details Date Type Department Care Team (Latest Contact Info) Description 09/10/2021 Abstract [facility] CONVERSIONS Dental, Provider, DDS Social History Tobacco [...] Description 07/24/2025 9:30 AM EDT Office Visit [facility]ULT [facility] [address] [place] [address] Sylvia Whiting documented as of this encounter Visit Diagnoses Not on filedocumented in this encounter
--- OUTSIDE RECORDS SUMMARY | 2025-03-21 17:03 | XMS_ITS | Clinical Summary ---
Demographics Address [address] [place] [address] Home Phone Preferred Language es Marital Status Unknown Moravian Affiliation Unknown Race Unknown Ethnic Group Unknown Author Organization [facility] Address [address] [place] [address] Phone Care Team Providers Care Leaf Tinner Name Role Phone Makayla Yepez MD Primary Care Provider [phone] Allergies No known active allergies Medications metFORMIN [...] Exam 06/11/2023 Influenza Vaccine (#1) 2024 Insurance [facility] Medicaid * Guarantor: Emir Cruz Account Type Relation to Patient Date of Phone Billing Address Personal/Family Self [address] [place] [address] [facility] Medicaid Care Teams Leaf Tinner Relationship Specialty Start Date End Date Makayla Yepez MD [address] [place], [place] PCP - General Internal Medicine 01/23/23
--- OUTSIDE RECORDS SUMMARY | 2025-03-21 17:03 | XMS_ITS | Clinical Summary ---
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 Name Role Phone Unavailable Primary Care Provider [...] Description 03/02/2025 9:30 AM EST Office Visit [facility] [address] [place] [address] Clarissa Bell DDS Dental caries (Primary Dx) 01/23/2025 9:00 AM EDT Office Visit [facility] [address] [place] [address] Sylvia Whiting Encounter for dental examination (Primary Dx); Dental caries; Dental calculus; Dental plaque; Halitosis; Bone loss; Periodontal disease 12/19/2024 Telephone [facility] [address] [place] [address] Sylvia Whiting from Last 3 Months Social [...] Description 07/24/2025 9:30 AM EDT Office Visit [facility] [address] [place] [address] Sylvia Whiting Health Maintenance Due Date Last [...] AM EDT from Last 3 Months Insurance [facility] MEDICAID STAND ADULT * Guarantor: Emir Allen Account Type Relation to Patient Date of Phone Billing Address Personal/Family Self [address] [place] [address] * Guarantor: Emir Allen Account Type Relation to Patient Date of Phone Billing Address Personal/Family Self [address] [place] [address] * Guarantor: Emir Allen Account Type Relation to Patient Date of Phone Billing Address Personal/Family Self [address] [place] [address] * Guarantor: Emir Allen Account Type Relation to Patient Date of Phone Billing Address Personal/Family Self [address] [place] [address]
== END 2025-03-21 13:41 | disposition home or self-care (01) ==
LOC: HO.HKA 13:15
PROVIDERS: PCP Internal Medicine; Visit Provider Internal Medicine Hypertension Specialist
DX: I10 Essential (primary) hypertension (principal); E11.9 Type 2 diabetes mellitus without complications; R80.9 Proteinuria, unspecified
CPT/HCPCS: 99204

== ENCOUNTER → 2025-03-21 13:14 | Outpatient (BNVA) | payer OTHER, SELFPAY | PROVIDERS: PCP Internal Medicine; Visit Provider Internal Medicine Hypertension Specialist | DX: I10 Essential (primary) hypertension (principal); E11.9 Type 2 diabetes mellitus without complications; R80.9 Proteinuria, unspecified | CPT/HCPCS: 99202 ==